=== PATIENT | female | born 1990 | race Caucasian/White ===

== ENCOUNTER → 2018-01-17 11:44 | Outpatient (CLI) | payer MEDICAID, SELFPAY ==
[2018-01-17 15:57] LABS: Absolute Lymphocyte Count 1.64 X10^3/ul (0.83-4.51); Absolute Neutrophil Count 4.3 X10^3/uL (2.0-7.7); Basophil# 0.03 X10^3/uL; Basophil% 0.5 % (0-1); Eosinophil# 0.13 X10^3/uL; Hematocrit 41.3 % (37-47); Lymphocyte # 1.64 X10^3/ul (4.0); Lymphocyte % 24.7 % (19-41); Mean Corp Hgb Conc 33.9 g/gl (32-36); Mean Corpuscular Hgb 30.8 pg (27.0-32.0); Mean Platelet Vol. 9.2 fl (6.2-12.0); Monocyte# 0.55 X10^3/uL; Monocyte% 8.3 % (0-10); Neutrophil # 4.29 X10^3/uL (2.7-7.7); Neutrophil % 64.3 % (47-70); Platelet Count 254 K/mm3 (150-450); RBC Distribution Width CV 12.1 % (11.6-14.6); RBC Distribution Width SD 40.2 fl (35.1-43.9); Red Blood Count 4.54 M/mm3 (4.2-5.4); White Blood Count 6.7 K/mm3 (4.4-11.0)
[2018-01-17 16:04] LABS: Hemoglobin A1c 4.9 % (4.2-6.3)
[2018-01-17 16:12] LABS: POSITIVE COUNT NO; POSITIVE DIFFERENTIAL NO; POSITIVE MORPHOLOGY NO
[2018-01-17 16:14] LABS: Homocysteine 6.4 umol/L (3.2-10.7)
[2018-01-17 16:28] LABS: hCG Titer Quant., Serum < 1 mIU/mL (<9 non-preg)
[2018-01-17 16:40] LABS: ALB/GLOB Ratio 1.2 RATIO (0.9-2.4); AST(SGOT) 10 U/L (15-37); Alanine Aminotransfer ALT/SGPT 23 U/L (13-56); Alkaline Phosphatase 50 U/L (45-117); Anion Gap 6 (5-15); BUN 13 mg/dL (7-18); BUN/Creat Ratio 18.1 RATIO (10-20); Calcium,Total 8.5 mg/dL (8.5-10.1); Chloride 106 mmol/L (98-107); Creatinine, Serum 0.72 mg/dL (0.55-1.02); EST Glomerular Filtration Rate 101 mL/min (>60); Est Glom Filt Rate - Afr Amer 122 mL/min (>60); Ferritin 40 ng/mL (8-252); Globulin 3.4 g/dL (2.2-4.2); Glucose 86 mg/dL (74-106); Protein, Total 7.4 g/dL (6.4-8.2); Sodium Level 138 mmol/L (136-145); Thyroid Stim Hormone (TSH) 0.97 uIU/mL (0.358-3.74)
[2018-01-17 16:46] LABS: Vitamin B12 363 pg/mL (211-911)
[2018-01-24 11:24] LABS: DHEA Sulfate 118.3 ug/dL (84.8-378.0)
== END ==
PROVIDERS: Family Provider Family Medicine; PCP Family Medicine; Visit Provider Family Medicine
DX: R63.5 Abnormal weight gain (principal); Z15.89 Genetic susceptibility to other disease; N92.6 Irregular menstruation, unspecified
CPT/HCPCS: 36415; 80053; 81291; 82607; 82627; 82728; 82746; 83036; 83090; 84443; 84702; 85025; 82626

== ENCOUNTER → 2020-05-04 | Outpatient (CLI) | payer MEDICAID, SELFPAY ==
[2020-05-04 15:44] LABS: Absolute Lymphocyte Count 1.68 X10^3/uL (0.83-4.51); Absolute Neutrophil Count 7.5 X10^3/uL (2.0-7.7); Basophil# 0.05 X10^3/uL; Basophil% 0.5 % (0-1); Eosinophil# 0.06 X10^3/uL; Eosinophils% 0.6 % (0-5); Hematocrit 36.4 % (37-47); Hemoglobin 12.5 g/dL (12.0-15.0); Lymphocyte # 1.68 X10^3/ul (4.0); Mean Corp Hgb Conc 34.3 g/dL (32-36); Mean Corpuscular Hgb 31.5 pg (27.0-32.0); Mean Corpuscular Volume 91.7 fL (81-99); Mean Platelet Vol. 9.7 fl (6.2-12.0); Monocyte# 0.51 X10^3/uL; Monocyte% 5.2 % (0-10); NRBC Flagged by Analyzer 0 % (0-5); Neutrophil # 7.53 X10^3/uL (2.7-7.7); Neutrophil % 76.3 % (47-70); Platelet Count 330 K/mm3 (150-450); RBC Distribution Width CV 12.8 % (11.6-14.6); RBC Distribution Width SD 41.9 fl (35.1-43.9); Red Blood Count 3.97 M/mm3 (4.2-5.4); White Blood Count 9.9 K/mm3 (4.4-11.0)
[2020-05-04 16:10] LABS: Color, Urine Yellow (Yellow); Glucose, Dipstick Normal (Normal); Ketone-Dipstick 50 mg/dl (Negative); Leukocyte Esterase-Dipstick Negative /ul (Negative); Nitrite-Dipstick Negative (Negative); Occult Blood-Urine Negative /ul (Negative); Protein-Dipstick Negative (Negative); Urine Bilirubin Dipstick Negative (Negative); Urine Clarity Clear (Clear); Urine Urobilinogen Normal (Normal)
[2020-05-04 16:57] LABS: Amphetamine Urine VISTA POSITIVE (<1000 ng/mL); Barbiturate Urine VISTA NEGATIVE (< 200 ng/mL); Benzodiazepine Urine VISTA NEGATIVE (< 200 ng/mL); Cocaine Urine VISTA NEGATIVE (< 300 ng/mL); Ecstacy Urine VISTA NEGATIVE (< 500 ng/mL); Methadone Urine VISTA NEGATIVE (< 300 ng/mL); PCP Urine VISTA NEGATIVE (< 25 ng/mL); THC Urine VISTA NEGATIVE (< 50 ng/mL); Vista UDS pH Range 5
[2020-05-05 01:57] LABS: Prenatal RPR NONREACTIVE (NONREACTIVE)
[2020-05-05 10:38] LABS: HIV - WCH Non-Reactive (Nonreactive); Hepatitis B Surface Antigen Non-Reactive (Nonreactive); Hepatitis C Antibody Non-Reactive (Nonreactive); Rubella IgG 38.1 IU/mL
== END | disposition home or self-care (01) ==
PROVIDERS: PCP Family Medicine; Visit Provider Obstetrics & Gynecology
DX: Z34.82 Encounter for supervision of other normal pregnancy, second trimester (principal); Z12.4 Encounter for screening for malignant neoplasm of cervix; Z11.3 Encounter for screening for infections with a predominantly sexual mode of transmission
CPT/HCPCS: 80307; 81002; 84443; 85025; 86703; 86762; 86803; 87340

== ENCOUNTER → 2020-05-13 16:16 | Outpatient (CLI) | payer MEDICAID, SELFPAY | PROVIDERS: PCP Family Medicine; Visit Provider Obstetrics & Gynecology | DX: N75.0 Cyst of Bartholin's gland (principal) | CPT/HCPCS: 87070; 87205 ==

== ENCOUNTER → 2020-06-22 10:24 | Outpatient (CLI) | payer MEDICAID, SELFPAY ==
[2020-06-22 12:05] LABS: ALB/GLOB Ratio 0.8 RATIO (0.9-2.4); AST(SGOT) 12 U/L (15-37); Alanine Aminotransfer ALT/SGPT 17 U/L (13-56); Albumin, Serum 2.8 g/dL (3.2-5.0); Alkaline Phosphatase 44 U/L (45-117); Anion Gap 3 (5-15); BUN 8 mg/dL (7-18); Calcium,Total 8.2 mg/dL (8.5-10.1); Chloride 108 mmol/L (98-107); Creatinine, Serum 0.53 mg/dL (0.55-1.02); EST Glomerular Filtration Rate 141 mL/min (>60); Est Glom Filt Rate - Afr Amer 170 mL/min (>60); Globulin 3.6 g/dL (2.2-4.2); Glucose 87 mg/dL (74-106); Potassium 3.7 mmol/L (3.5-5.1); Protein, Total 6.4 g/dL (6.4-8.2); Sodium Level 137 mmol/L (136-145); Uric Acid 2.8 mg/dL (2.6-6.0)
[2020-06-22 12:06] LABS: Vitamin D,25 Hydroxy 27.8 ng/mL
== END ==
PROVIDERS: PCP Family Medicine; Visit Provider Obstetrics & Gynecology
DX: O13.9 Gestational [pregnancy-induced] hypertension without significant proteinuria, unspecified trimester (principal); Z3A.00 Weeks of gestation of pregnancy not specified
CPT/HCPCS: 36415; 80053; 82306; 84550

== ENCOUNTER → 2020-06-23 13:08 | Outpatient (CLI) | payer MEDICAID, SELFPAY ==
[2020-06-23 13:36] LABS: 24HR. UA Prot. Total Volume 4975 mL
[2020-06-23 13:51] LABS: Urine Protein (24 Hour) < 6.0 mg/dL (<11.9)
== END ==
PROVIDERS: PCP Family Medicine; Visit Provider Obstetrics & Gynecology
DX: O13.9 Gestational [pregnancy-induced] hypertension without significant proteinuria, unspecified trimester (principal); Z3A.00 Weeks of gestation of pregnancy not specified
CPT/HCPCS: 81050

== ENCOUNTER → 2020-07-22 09:29 | Outpatient (CLI) | payer MEDICAID, SELFPAY ==
[2020-07-22 12:12] LABS: Hematocrit 34.3 % (37-47); Hemoglobin 11.4 g/dL (12.0-15.0); Mean Corp Hgb Conc 33.2 g/dL (32-36); Mean Corpuscular Hgb 30.7 pg (27.0-32.0); Mean Corpuscular Volume 92.5 fL (81-99); Mean Platelet Vol. 9.6 fl (6.2-12.0); Platelet Count 329 K/mm3 (150-450); RBC Distribution Width CV 11.9 % (11.6-14.6); Red Blood Count 3.71 M/mm3 (4.2-5.4); White Blood Count 10.2 K/mm3 (4.4-11.0)
[2020-07-22 12:42] LABS: Glucose Challenge Gest 1H 50g 148 mg/dL (70-140)
== END ==
PROVIDERS: PCP Family Medicine; Visit Provider Obstetrics & Gynecology
DX: Z34.82 Encounter for supervision of other normal pregnancy, second trimester (principal)
CPT/HCPCS: 36415; 82950; 85027

== ENCOUNTER → 2020-07-27 07:06 | Outpatient (CLI) | payer MEDICAID, SELFPAY ==
[2020-07-27 07:49] LABS: Glucose GTT-Gestation. Fasting 97 mg/dL (<105)
[2020-07-27 09:05] LABS: Glucose GTT-Gestational 1 Hr 136 mg/dL (<190)
[2020-07-27 09:58] LABS: Glucose GTT-Gestational 2 Hr 105 mg/dL (<165)
[2020-07-27 11:19] LABS: Glucose GTT-Gestational 3 Hr 71 L (<145)
== END ==
PROVIDERS: PCP Family Medicine; Referring Provider Obstetrics & Gynecology; Visit Provider Obstetrics & Gynecology
DX: O99.810 Abnormal glucose complicating pregnancy (principal); Z3A.00 Weeks of gestation of pregnancy not specified
CPT/HCPCS: 36415; 82951; 82952

== ENCOUNTER → 2020-08-16 11:30 | Outpatient (CLI) | payer MEDICAID, SELFPAY ==
[2020-08-16 12:18] LABS: Hematocrit 30.8 % (37-47); Hemoglobin 10.1 g/dL (12.0-15.0); Mean Corp Hgb Conc 32.8 g/dL (32-36); Mean Corpuscular Hgb 29.6 pg (27.0-32.0); Mean Corpuscular Volume 90.3 fL (81-99); Mean Platelet Vol. 8.8 fl (6.2-12.0); Platelet Count 258 K/mm3 (150-450); RBC Distribution Width CV 11.9 % (11.6-14.6); RBC Distribution Width SD 39.6 fl (35.1-43.9); Red Blood Count 3.41 M/mm3 (4.2-5.4); White Blood Count 10.6 K/mm3 (4.4-11.0)
[2020-08-16 12:49] LABS: ALB/GLOB Ratio 0.7 RATIO (0.9-2.4); AST(SGOT) 11 U/L (15-37); Alanine Aminotransfer ALT/SGPT 15 U/L (13-56); Albumin, Serum 2.6 g/dL (3.2-5.0); Alkaline Phosphatase 57 U/L (45-117); Anion Gap 8 (5-15); BUN 12 mg/dL (7-18); BUN/Creat Ratio 23.2 RATIO (10-20); Calcium,Total 8.4 mg/dL (8.5-10.1); Chloride 108 mmol/L (98-107); Creatinine, Serum 0.52 mg/dL (0.55-1.02); EST Glomerular Filtration Rate 146 mL/min (>60); Est Glom Filt Rate - Afr Amer 176 mL/min (>60); Ferritin 4 ng/mL (8-252); Globulin 3.8 g/dL (2.2-4.2); Glucose 89 mg/dL (74-106); Iron 28 ug/dL (50-170); Iron Binding Capacity,Total 574 ug/dL (250-450); Potassium 3.9 mmol/L (3.5-5.1); Protein, Total 6.4 g/dL (6.4-8.2); Sodium Level 138 mmol/L (136-145); Uric Acid 3.1 mg/dL (2.6-6.0)
== END ==
PROVIDERS: PCP Family Medicine; Visit Provider Obstetrics & Gynecology
DX: O10.013 Pre-existing essential hypertension complicating pregnancy, third trimester (principal); O99.019 Anemia complicating pregnancy, unspecified trimester; D64.9 Anemia, unspecified; O99.340 Other mental disorders complicating pregnancy, unspecified trimester; F50.89 Other specified eating disorder; Z3A.00 Weeks of gestation of pregnancy not specified
CPT/HCPCS: 36415; 80053; 82728; 83540; 83550; 84550; 85027

== ENCOUNTER → 2020-08-18 09:49 | Outpatient (CLI) | payer MEDICAID, SELFPAY ==
[2020-08-18 10:30] LABS: 24HR. UA Prot. Total Volume 5875 mL; Urine Protein (24 Hour) < 6.0 mg/dL (<11.9)
== END ==
PROVIDERS: PCP Family Medicine; Visit Provider Obstetrics & Gynecology
DX: O10.013 Pre-existing essential hypertension complicating pregnancy, third trimester (principal); F50.89 Other specified eating disorder; Z3A.00 Weeks of gestation of pregnancy not specified; O99.013 Anemia complicating pregnancy, third trimester; D64.9 Anemia, unspecified
CPT/HCPCS: 81050

== ENCOUNTER 2020-09-10 11:55 | Outpatient (CLI) | payer MEDICAID, SELFPAY ==
[2020-09-10 13:53] VITALS: BP 120/73; PULSE 102
[2020-09-10 15:47] VITALS: BP 110/59; PULSE 93; TEMP 36.6; O2SAT 98
--- NOTE | 2020-09-11 08:16 | PCM.PN.BLA ---
Progress Note Triage Note: CC: Fall HPI: 30 yo presenting s/p fall on buttock and tailbone. No abdominal trauma. +FM, no leaking of fluid, bleeding, contractions. Tailbone sore. complicated by: ADHD, chronic hypertension on nifedipine. OBHX: G1: EAB, forced per records G2: current Medical Hx: cHTN, ADHD Surgical Hx: none Social Hx: former smoker, denies alcohol or drugs Allergies: PCN Medications: ASA 81 mg, colace, iron, nifedipine, PNV, vitamin D3, vyvanse PE; Vital Signs - 24 hr 09/10/20 12:11 09/10/20 12:12 09/10/20 13:53 Temperature 98.9 F Pulse Rate 106 H 125 H 102 H Blood Pressure 128/91 H 125/87 H 120/73 Pulse Ox 98 09/10/20 15:47 Temperature 97.9 F Pulse Rate 93 Blood Pressure 110/59 L Pulse Ox 98 Exam per nursing FHR: 140/mod jeni/+accel/no decel [place]: quiet A/P: 30 yo at 34/5 weeks presenting s/p fall. Pt had four hours of monitoring. Not samuel. NST reactive. Home with precautions. F/u routine visit.
== END 2020-09-10 14:00 | disposition home or self-care (01) ==
DX: Z04.3 Encounter for examination and observation following other accident (principal); O10.919 Unspecified pre-existing hypertension complicating pregnancy, unspecified trimester; O99.340 Other mental disorders complicating pregnancy, unspecified trimester; F90.9 Attention-deficit hyperactivity disorder, unspecified type; Z3A.00 Weeks of gestation of pregnancy not specified; Z79.82 Long term (current) use of aspirin; Z87.891 Personal history of nicotine dependence
CPT/HCPCS: 59050; 99218; G0378

== ENCOUNTER → 2020-09-20 15:42 | Outpatient (CLI) | payer MEDICAID, SELFPAY ==
[2020-09-10 12:15] VITALS: BMI 33.5
[2020-09-20 17:33] LABS: Hematocrit 40.5 % (37-47); Hemoglobin 13.2 g/dL (12.0-15.0); Mean Corp Hgb Conc 32.6 g/dL (32-36); Mean Corpuscular Hgb 30.8 pg (27.0-32.0); Mean Corpuscular Volume 94.6 fL (81-99); Mean Platelet Vol. 9.5 fl (6.2-12.0); Platelet Count 247 K/mm3 (150-450); RBC Distribution Width CV 17.3 % (11.6-14.6); RBC Distribution Width SD 59.5 fl (35.1-43.9); Red Blood Count 4.28 M/mm3 (4.2-5.4); White Blood Count 13.3 K/mm3 (4.4-11.0)
[2020-09-20 18:08] LABS: Ferritin 15 ng/mL (8-252)
== END ==
PROVIDERS: PCP Family Medicine; Visit Provider Obstetrics & Gynecology
DX: Z34.83 Encounter for supervision of other normal pregnancy, third trimester (principal); Z36.85 Encounter for antenatal screening for Streptococcus B; D50.9 Iron deficiency anemia, unspecified
CPT/HCPCS: 36415; 82728; 85027; 87081

== ENCOUNTER → 2020-10-06 09:30 | Outpatient (CLI) | payer MEDICAID, SELFPAY ==
[2020-09-10 12:15] VITALS: BMI 33.5
== END ==
PROVIDERS: PCP Family Medicine; Referring Provider Obstetrics & Gynecology; Visit Provider Obstetrics & Gynecology
DX: Z11.59 Encounter for screening for other viral diseases (principal)
CPT/HCPCS: 87635; C9803; U0003

== ENCOUNTER 2020-10-13 19:23 | Inpatient (IN) | payer MEDICAID, SELFPAY ==
[2020-09-10 12:15] VITALS: BMI 33.5
[2020-10-13 19:53] VITALS: BP 135/92; PULSE 111; PULSE 117; TEMP 36.7; O2SAT 98
[2020-10-13] MEDS: Lactated Ringers 1,000 ML 50 ML IV (20:17)
[2020-10-13 20:24] VITALS: BMI 35.2
[2020-10-13 20:48] LABS: Absolute Lymphocyte Count 1.61 X10^3/uL (0.83-4.51); Absolute Neutrophil Count 11.5 X10^3/uL (2.0-7.7); Basophil# 0.04 X10^3/uL; Basophil% 0.3 % (0-1); Eosinophil# 0.08 X10^3/uL; Eosinophils% 0.6 % (0-5); Hematocrit 40.8 % (37-47); Hemoglobin 13.2 g/dL (12.0-15.0); Lymphocyte # 1.61 X10^3/ul (4.0); Lymphocyte % 11.2 % (19-41); Mean Corp Hgb Conc 32.4 g/dL (32-36); Mean Corpuscular Hgb 30.8 pg (27.0-32.0); Mean Corpuscular Volume 95.1 fL (81-99); Mean Platelet Vol. 9.4 fl (6.2-12.0); Monocyte# 1.04 X10^3/uL; Monocyte% 7.2 % (0-10); NRBC Flagged by Analyzer 0 % (0-5); Neutrophil # 11.51 X10^3/uL (2.7-7.7); Platelet Count 249 K/mm3 (150-450); RBC Distribution Width CV 16.8 % (11.6-14.6); RBC Distribution Width SD 58.9 fl (35.1-43.9); Red Blood Count 4.29 M/mm3 (4.2-5.4); White Blood Count 14.4 K/mm3 (4.4-11.0)
--- NOTE | 2020-10-13 21:20 | PCM.HPOB.BLA ---
History and Physical Date of Admission: 10/13/20 Chief complaint: Induction of labor at term History of present illness: 30 years old G3, P0 at 39 weeks and 3 days with JANNETH: 10/17/2020 by LMP arrives for induction of labor at term. Denies headache, visual changes, chest pain, shortness of breath, nausea vomiting, right upper quadrant pain. Patient states good movement Nifedipine, Bartholin's glands status post drainage this Obstetric history G1: SAB 2011 G2: SAB 2013 G3: Current Past medical history: Chronic hypertension, herniated disks, history of Lyme disease, depression/ADHD Past surgical history: None Medications: Nifedipine, Vyvanse, aspirin Allergies: Penicillin (rash) Social history: Former smoker. Denies a history of alcohol use, drug use Review of systems: Besides the above pertinent positives a full review of systems was performed and found to be negative Physical exam: Vital Signs Pulse BP Pulse Ox 10/13/20 19:53 117 H 135/92 H 98 General: Normal-appearing no acute distress skin HEENT: Normocephalic atraumatic no cervical adenopathy Cardiac: Regular rate and rhythm no murmurs rubs or gallops Respiratory: Clear to auscultation bilaterally no wheezes rales or crackles Abdomen: Soft nontender, gravid. Positive bowel sounds Pelvic: Cervical exam- closed thick and high heart tones: 120/moderate variability/positive accelerations/negative decelerations [place]: Few contractions Extremities: No peripheral edema normal peripheral pulses Psych: Normal affect normal demeanor nonpressured speech Mom's Labs & Results 10/13/20 10/13/20 20:10 20:10 WBC 14.4 H RBC 4.29 Hgb 13.2 Hct 40.8 MCV 95.1 MCH 30.8 MCHC 32.4 RDW Std Deviation 58.9 H RDW Coeff of Ralf 16.8 H Plt Count 249 MPV 9.4 Immature Gran % (Auto) 0.700 Neut % (Auto) 80.0 H Lymph % (Auto) 11.2 L [place] % (Auto) 7.2 Eos % (Auto) 0.6 Baso % (Auto) 0.3 Absolute Neuts (auto) 11.5 H Absolute Lymphs (auto) 1.61 Nucleated RBC % 0 Blood Type Pending Antibody Screen Pending Labs Blood Type: A RH: POSITIVE RPR/VDRL/Syphilis Nonreactive Rubella status Immune HbSAg Negative Date Done: 05/04/20 Chlamydia Negative Gonorrhea Negative HIV/AIDS Non-Reactive Group B Strep: Negative Assessment and plan: Is a 30-year-old G3, P0 at 39 weeks and 3 days for induction of labor at term. -Admit labor and delivery -CEFM -GBS negative -Cytotec induction -Anesthesia to see
[2020-10-13] MEDS: miSOPROStol 25 MCG TABLET VAGINAL (21:37)
[2020-10-13 21:53] VITALS: BP 134/84; PULSE 97; TEMP 36.6
[2020-10-13] MEDS: DiphenhydrAMINE 25 MG Capsule 75 MG PO (22:21)
[2020-10-13] MEDS: NIFEdipine 30 MG Tablet PO (22:22)
[2020-10-14] VITALS (27 sets, daily range): BP systolic 92–151; BP diastolic 55–96; PULSE 78–163; RESP 16; TEMP 36.2–37.2; O2SAT 82–100
[2020-10-14] MEDS: miSOPROStol 50 MCG TABLET VAGINAL ×2 (02:21→08:07)
--- NOTE | 2020-10-14 08:57 | PCM.PN.BLA ---
Progress Note LABOR PROGRESS NOTE Denies headache, vision changes, abdominal pain. Reports mild contractions in her back. No complaints. AVSS Vital Signs Temp 98.9 F 10/14/20 07:23 Pulse 90 10/14/20 07:23 BP 122/77 H 10/14/20 07:23 Pulse Ox 100 10/14/20 07:23 Intake & Output 10/12/20 10/13/20 10/14/20 23:59 23:59 23:59 Output Total 100 / 100 Balance -100 / -100 Weight: 98.883 kg Output: Urine 100 / 100 GEN - NAD, AAO x 3 FHR 140, moderate variability, + accelerations, no decelerations TOCO 3-4/10 min SVE 1/50/-2 per RN exam A/P: 30yo G1 @ 39+ wga, IOL, cHTN, Cat I FHR -Continue cytotec -Plan for stuart bulb if unchanged at next check STROKE Vital Signs/Narrative: Vital Signs Temp Pulse BP Pulse Ox 10/14/20 07:23 98.9 F 90 122/77 H 100
[2020-10-14] MEDS: NIFEdipine 30 MG Tablet PO ×2 (09:55→22:22)
--- NOTE | 2020-10-14 12:58 | PN_ITS ---
Progress Note LABOR PROGRESS NOTE Doing well, no complaints. AVSS GEN - NAD, AAO x 3 FHR 135/7, moverate variability, + accelerations, no decelerations TOCO 4/10 min SVE 1/75/-2, moderate and midposition A/P: 30yo G1 @ 39 4/7 wga with hx cHTN, IOL, Cat I FHR -Rodriguez bulb placed -If no significant contractions will start pitocin in 1-2 hours -Maternal and statuses reassuring -Discussed r/b Vyvanse , effects associated with . May consider , L3, with relative infant dose 1.8- 6.2%. Pt considering. STROKE Vital Signs/Narrative: Vital Signs Temp Pulse BP Pulse Ox 10/14/20 11:37 98.5 F 82 111/70 99 10/14/20 09:53 94 136/92 H 10/14/20 09:52 98.7 F 100
[2020-10-14] MEDS: 0.9% Normal Saline Single 100 ML IV.SOLN. IY (13:09)
[2020-10-14] MEDS: Lactated Ringers 1,000 ML 200 ML IV (16:20)
[2020-10-14] MEDS: fentaNYL 100 MCG/2 ML Ampul IV (18:12)
[2020-10-14] MEDS: Oxytocin 30 units/NS 500 ml 30 UNITS/500 ML IV.SOLN 334 UNITS IV (18:32)
--- NOTE | 2020-10-14 18:47 | PCM.OPRPT ---
Problem List (1) 39 weeks gestation of Status: Acute (2) (spontaneous vaginal delivery) Status: Acute Vaginal Delivery Maternal Presentation: Medically Indicated Induction Method of Induction: Rodriguez Bulb, Cytotec Amniotic Membrane Rupture Type: Spontaneous Rupture of Membrane time: 10/14/20 1817h Amniotic Fluid Description: Clear Final JANNETH: 10/17/20 Final JANNETH Source: US <20 weeks Gestational age: 39 Weeks and 4 Days Date of Procedure: 10/14/20 Pre-Operative Diagnosis: 39 4/7wga, chronic hypertension Post-Operative Diagnosis: 39 4/7wga, chronic hypertension Surgery/ Procedure Performed: Spontaneous Vaginal Delivery Type of Anesthesia: None Description of Procedure: Patient was FD/+4 on my arrival, Cat I FHR. She pushed over an intact perineum to deliver infant head. Mouth and nares bulb suctioned at the perineum and nuchal cord x 1 reduced. shoulders delivered with ease to reveal a vigorous male infant. Infant was placed on the maternal abdomen and was further attended by nursery personnel. Cord was doubly clamped and cut at 5 minutes of life. Perineum intact Sponge counts correct x 2. Presentation: Vertex Placental Delivery Description: Spontaneous Placenta Disposition: [facility] Cord Vessel Description: 3 Vessels Nuchal Cord Compression: Without compression Cord Entanglement: Around neck x 1, loose Estimated Blood Loss: 350 ml A gender: Male (1 minute): 8 (5 minute): 9 Episiotomy Description: None Laceration: None Medications given after delivery: IV Pitocin
--- NOTE | 2020-10-14 20:36 | NURSING ---
report given to aorr RN. that rn to assume care of pt at this time.
[2020-10-14] MEDS: 0.9% Saline Lock 10 ML Syringe IV (21:10)
[2020-10-15 03:27] VITALS: BP 137/80; PULSE 89; RESP 16; TEMP 36.7
[2020-10-15 08:47] VITALS: BP 133/95; PULSE 83; RESP 14; TEMP 36.4
[2020-10-15] MEDS: NIFEdipine 30 MG Tablet PO ×2 (08:53→22:33)
--- NOTE | 2020-10-15 09:20 | PCM.PN.OB ---
Patient Problems: Active and Suspected Problems 39 weeks gestation of (Acute) (spontaneous vaginal delivery) (Acute) Subjective: Feels well this morning. She is out of bed, voiding without difficulty. Denies heavy lochia. latched well and she is breast and bottle feeding. Objective: AVSS - Physical Exam Vitals/I&O's: Vital Signs Temp Pulse Resp BP Pulse Ox 97.6 F L 83 14 133/95 H 98 10/15/20 08:47 10/15/20 08:47 10/15/20 08:47 10/15/20 08:47 10/14/20 20:27 Oxygen Delivery Method Room Air Weight: 98.883 kg Body Mass Index (BMI) 35.2 Intake and Output for Last 24 Hours 10/13/20 10/14/20 10/15/20 23:59 23:59 23:59 Intake Total 1608.33 / 1608.33 Output Total 450 / 450 400 / 400 Balance 1158.33 / 1158.33 -400 / -400 General: Alert, Oriented x3, Cooperative, No apparent distress HEENT: Atraumatic, Normocephalic Lungs: Clear to auscultation, Normal air movement Cardiovascular: Regular rate, Regular Rhythm, Normal S1, Normal S2 Abdomen: Soft, Non Tender, Non-Distended, - - Fundus firm and nontender Extremities: No edema, No Calf Tenderness Neurological: Neuro grossly intact Psych/Mental Status: Normal Affect, Appropriate, Alert and oriented to time, place, person, mood and affect Current Medications Acetaminophen (Acetaminophen 500 Mg Tablet) 500 - 1,000 mg PO Q6H PRN PRN PRN Reason: Pain Score 1-3 Bisacodyl (Bisacodyl 10 Mg Suppository) 10 mg RECTAL UD PRN PRN Reason: If no BM Hydrocortisone (Hydrocortisone 2.5% Crm) 1 applic TOPICAL TID PRN PRN; Protocol PRN Reason: Discomfort Ibuprofen (Ibuprofen 600 Mg Tablet) 600 mg PO Q6H PRN PRN PRN Reason: Pain Score 1-3 Lisdexamfetamine Dimesylate (Lisdexamfetamine Dimesylate 60 Mg Capsule) 60 mg PO DAILY SHAUN Last Admin: 10/15/20 08:53 Dose: 60 mg Documented by: Methylergonovine Maleate (Methylergonovine 0.2 Mg/Ml Ampul) 0.2 mg IM X1 PRN PRN Reason: Excess bleeding/uterine atony Nifedipine (Nifedipine 30 Mg Tablet) 30 mg PO BID SHAUN Last Admin: 10/15/20 08:53 Dose: 30 mg Documented by: Ondansetron HCl (Ondansetron 4 Mg/2 Ml Vial) 4 mg IV Q4H PRN PRN PRN Reason: NAUSEA Senna/Docusate Sodium (Senna/Docusate Sodium 1 Tablet) 1 - 2 tablet PO DAILY PRN PRN PRN Reason: Constipation Simethicone (Simethicone 80 Mg Tablet) 80 mg PO PCHS PRN PRN Reason: Indigestion/Stomach pain Sodium Chloride (0.9% Saline Lock 10 Ml Syringe) 5 - 15 ml IV UD PRN PRN Reason: SALINE FLUSH Last Admin: 10/14/20 21:10 Dose: 5 ml Documented by: Medical Necessity - Tobacco Use Smoking Status: Former smoker Assessment/Plan All Active Problems 39 weeks gestation of (Acute) (spontaneous vaginal delivery) (Acute) 30yo P1001 PPD#1 s/p doing well. -Rh positive -Social work consultation -Breast and bottle feeding. education. -Routine care.
[2020-10-15 16:33] VITALS: BP 141/92; PULSE 90; RESP 14; TEMP 36.2
--- NOTE | 2020-10-15 18:45 | CASEMGMT ---
Social Work Assessment Labor and Delivery Unit Date of Referral: 10/14/2020 Time of Referral: 23:07 Referred By: Dr. Cherise Blanchard Date of Intervention: 10/15/2020 Time of Intervention: 18:45 Reason for Referral: Mother of baby (MOB) with history of trauma, anxiety, Father of baby (FOB) recently diagnosed with a brain mass. History obtained from: MOB, FOB, Chart, Nursing staff. Household composition: MOB, FOB and now this infant, Lucas Boucher. Patient's parent/guardian status: MOB and FOB have been for 5 years. was planned. FOB reports ?years? of infertility and ?we thought we could not get .? This is first child for both MOB and FOB. Medical History: MOB with prior to this infant. MOB with vaginal delivery at 39 weeks. MOB with history of Anxiety, Depression, PTSD. Infant born on 10/14/2020 with apgars of 8 and 9 at 1min and 5min. Infant weight of 3475g. to follow with Dr. Jimenez Hutchison for animal warden. MOB plans a combination of and bottle feeding. Educational Status: Denies any issues with comprehension or understanding. Financial Status: FOB is self-employed. MOB reports current financial stability but unsure when FOB has surgery in 2020. MOB aware of WIC, Medicaid and has utilized food stamps in the past. Supplies: FOB reports to have needed supplies including car seat and crib etc. Childcare/Caregiver(s): MOB to be primary caregiver for infant. FOB is currently in a ?slow period? and will be around for support of MOB and . Transportation: Denies concerns. Programs/Agencies Involved: [employer] [facility] for medical. Children Services/Legal Issues: Denies issues or concerns. Mental Health History: MOB with history of Anxiety, Depression, ADHD and PTSD. MOB reports history of counseling but not active counseling services. MOB reports only medication that MOB is currently on for mental health is Vyvanse and ?it works well.? This social studies department chair able to engage in conversation with MOB about depression signs and symptoms. MOB responding appropriately and able to identify positive coping skills. Substance Use History: Denies history or current substance abuse for MOB. FOB currently chews tobacco and denies any other substance abuse/abuse. Maternal and Drug Screens: MOB with positive tox screen for amphetamines on 05/04/2020, per medical team report Vyvanse can trigger a false positive. No further tox screens were completed on MOB or infant. PHQ9: MOB triggered PHQ-9. MOB with 14/27 on PHQ-9 with exhibits moderate depression. MOB with appropriate and engaged affect during conversation with this social studies department chair. MOB reports to have a connection with . MOB reports to believe that MOB would have the same score on the PHQ-9 for the past 3-4 years. MOB reports ?I have a lot of stress in life.? MOB denies any history of suicidal thoughts or current thoughts/plans/intents of suicide. MOB is forward focused and goal oriented. MOB reports main current stressor in MOB?s life is FOB having ?brain surgery? in 2020. MOB reports to have found out about FOBs diagnosis 2 weeks ago. MOB and FOB both report stress in relationship to COVID-19 and not wanting family to come and visit . MOB and FOB with dilemma of best choice for caring for infant when FOB has surgery in November. Currently the plan is for FOB to go to hospital on own and MOB to only join FOB if there are complications. MOB and FOB report to have not informed either of their extended family about FOB?s diagnosis as ?we know they will be overly concerned.? This social studies department chair problem solving with MOB/FOB on plans for if MOB would need to go to hospital to be with FOB. MOB and FOB voice plan to inform family ?when it gets closer.? MOB also reports to have history of ?trauma? and ?things that happened to me.? MOB presents as able to critically think and problem solve. MOB with appropriate emotional regulation throughout conversation and reports to have a connection with . MOB open to receive counseling information but not open to beginning counseling with concern of COVID-19. MOB did voice intent to speak with physician if MOB would begin to have signs/symptoms of depression or be having difficulty coping with FOB?s diagnosis. This social studies department chair able to normalize MOB/FOB?s current emotions and able to identify strengths that both MOB and FOB presented during assessment. Family/Social Stressors: MOB reports current stressor of wanting to limit extended family contact due to COVID-19. MOB reports to have not told extended family about until MOB was 30-32 weeks . FOB?s new diagnosis of brain tumor is also a current stressor and discussed further above. MOB reports to have not told family that infant has been born as ?we don?t want them meeting us in the driveway.? This social studies department chair able to facilitate pros and cons of involving extended family in navigating current stressors. MOB and FOB present to be able to communicate to each other and are appropriate when speaking about current stressors. This social studies department chair encouraging MOB/FOB to continue with open conversations about feelings/thoughts as this current season of life is unknown with FOB?s new diagnosis and transitioning to life with an infant. Support Systems: MOB reports main support as FOB. MOB reports to have support from extended family ?if needed.? Depression and Anxiety/Shaken Baby/Safe Sleeping: MOB provided with resources on depression/anxiety, shaken baby, safe sleeping and general [facility] resources. MOB and FOB responding appropriately to prompts for safe sleeping and shaken baby. ASSESSMENT: Met with MOB, FOB and in room. This social studies department chair introduced self and social studies department chair role. MOB agreeable to speak with this social studies department chair and providing verbal permission for this social studies department chair to speak openly with FOB present. MOB holding during assessment. Both MOB and FOB gazing at infant often during assessment. MOB/FOB with appropriate eye contact to this social studies department chair. MOB denies immediate concerns on home going with infant. This social studies department chair facilitated active listening and support throughout assessment. This social studies department chair encouraging both MOB and FOB to reach out to doctors, family, and counseling as needed throughout the next few months. PLAN: to discharge to home with MOB and FOB. Nursing staff updated on above assessment. No other services requested or indicated. Aaron DAMON, ALY
[2020-10-15 19:50] VITALS: BP 131/88; PULSE 79; RESP 16; TEMP 36.6
[2020-10-16 01:10] VITALS: BP 135/94; PULSE 92; RESP 18; TEMP 36.6
--- NOTE | 2020-10-16 04:48 | DCINST_ITS ---
Discharge Diet: No Restrictions Discharge Activity: Return to Normal Activity, May Shower, May Take a Tub Bath May resume sexual activity in: 4-6 weeks Lifting Restrictions: 20-25lb Additional Instructions: If you experience any of the following, contact your healthcare provider. * Bleeding that soaks a pad every hour for 2 hours * Fever 100.4 or higher * Unrelieved incision or abdominal pain * Swelling, redness, discharge or bleeding from your incision or episiotomy site * Your incision begins to separate * Problems urinating (including inability to urinate or burning while urinating). * Visual changes * Severe headache * Flu-like symptoms * Pain or redness in one of both of your breasts * Pain, warmth, tenderness or swelling in your legs, especially the calf area * Frequent nausea and vomiting * Symptoms of depression or anxiety If you experience any of the following, call 911 or go to the nearest Emergency Room. * Chest pain * Problems breathing * Seizure activity * Partial or complete paralysis of a body part, slurred speech, weakness or drooping of the face, or a sudden inability to walk or hold your balance Allergies/Adverse Reactions: Allergies Penicillins Allergy (Verified 10/13/20 19:33) Rash Medications to take at Discharge DiphenhydrAMINE [Benadryl] 75 mg PO QHS PRN PRN 10/13/20 Ergocalciferol [Vitamin D] 10/13/20 Lisdexamfetamine Dimesylate [Vyvanse] 60 mg PO DAILY 10/13/20 Nifedipine [Nifedipine ER] 30 mg PO BID 10/13/20 Ibuprofen [Motrin] 600 mg PO Q8H PRN #30 tab 10/15/20 The following prescriptions were given: Ibuprofen [Motrin] 600 mg PO Q8H PRN #30 tab PRN Reason: pain -09/03 Transmission Status: Received by [id number] Please Follow Up With: Bertha - telehealth visit, mood check When: 1-3 weeks Please Follow Up With: Bertha - visit When: 6-8 weeks Primary Care Physician: Jimenez Hutchison MD [Primary Care Provider] - Test Results: Test results from this visit will be discussed in further detail at your follow- up appointment, if applicable. Proposed Discharge Date: 10/16/20
--- NOTE | 2020-10-16 04:48 | PCM.DCVAG ---
Discharge Diet: No Restrictions Discharge Activity: Return to Normal Activity, May Shower, May Take a Tub Bath May resume sexual activity in: 4-6 weeks Lifting Restrictions: 20-25lb Additional Instructions: If you experience any of the following, contact your healthcare provider. Bleeding that soaks a pad every hour for 2 hours Fever 100.4 or higher Unrelieved incision or abdominal pain Swelling, redness, discharge or bleeding from your incision or episiotomy site Your incision begins to separate Problems urinating (including inability to urinate or burning while urinating). Visual changes Severe headache Flu-like symptoms Pain or redness in one of both of your breasts Pain, warmth, tenderness or swelling in your legs, especially the calf area Frequent nausea and vomiting Symptoms of depression or anxiety If you experience any of the following, call 911 or go to the nearest Emergency Room. Chest pain Problems breathing Seizure activity Partial or complete paralysis of a body part, slurred speech, weakness or drooping of the face, or a sudden inability to walk or hold your balance Allergies/Adverse Reactions: Allergies Penicillins Allergy (Verified 10/13/20 19:33) Rash Medications to take at Discharge DiphenhydrAMINE [Benadryl] 75 mg PO QHS PRN PRN 10/13/20 Ergocalciferol [Vitamin D] 10/13/20 Lisdexamfetamine Dimesylate [Vyvanse] 60 mg PO DAILY 10/13/20 Nifedipine [Nifedipine ER] 30 mg PO BID 10/13/20 Ibuprofen [Motrin] 600 mg PO Q8H PRN #30 tab 10/15/20 The following prescriptions were given: Ibuprofen [Motrin] 600 mg PO Q8H PRN #30 tab PRN Reason: pain -09/03 Transmission Status: Received by [id number] Please Follow Up With: Bertha - telehealth visit, mood check When: 1-3 weeks Please Follow Up With: Bertha - visit When: 6-8 weeks Primary Care Physician: Jimenez Hutchison MD [Primary Care Provider] - Test Results: Test results from this visit will be discussed in further detail at your follow-up appointment, if applicable. Proposed Discharge Date: 10/16/20
--- NOTE | 2020-10-16 07:37 | PCM.PN.OB ---
Patient Problems: Active and Suspected Problems 39 weeks gestation of (Acute) (spontaneous vaginal delivery) (Acute) Subjective: Reports low back pain and feels as if her pelvis is unstable and feels wobbly. hx chronic low back pain. Denies pain running down into her buttocks or thighs. Denies heavy lochia. No other complaints. Objective: AVSS - Physical Exam Vitals/I&O's: Vital Signs Temp Pulse Resp BP Pulse Ox 97.8 F 92 18 135/94 H 98 10/16/20 01:10 10/16/20 01:10 10/16/20 01:10 10/16/20 01:10 10/14/20 20:27 Oxygen Delivery Method Room Air Weight: 98.883 kg Body Mass Index (BMI) 35.2 Intake and Output for Last 24 Hours 10/14/20 10/15/20 10/16/20 23:59 23:59 23:59 Intake Total 1608.33 / 1608.33 Output Total 450 / 450 400 / 400 Balance 1158.33 / 1158.33 -400 / -400 General: Alert, Oriented x3, Cooperative, No apparent distress HEENT: Atraumatic, Normocephalic Lungs: Clear to auscultation, Normal air movement Cardiovascular: Regular rate, Regular Rhythm, Normal S1, Normal S2 Abdomen: Soft, Non Tender, Non-Distended, - - Fundus firm and nontender Extremities: No edema, No Calf Tenderness Neurological: Neuro grossly intact Psych/Mental Status: Normal Affect, Appropriate, Alert and oriented to time, place, person, mood and affect Current Medications Acetaminophen (Acetaminophen 500 Mg Tablet) 500 - 1,000 mg PO Q6H PRN PRN PRN Reason: Pain Score 1-3 Bisacodyl (Bisacodyl 10 Mg Suppository) 10 mg RECTAL UD PRN PRN Reason: If no BM Hydrocortisone (Hydrocortisone 2.5% Crm) 1 applic TOPICAL TID PRN PRN; Protocol PRN Reason: Discomfort Ibuprofen (Ibuprofen 600 Mg Tablet) 600 mg PO Q6H PRN PRN PRN Reason: Pain Score 1-3 Lisdexamfetamine Dimesylate (Lisdexamfetamine Dimesylate 60 Mg Capsule) 60 mg PO DAILY SHAUN Last Admin: 10/16/20 04:38 Dose: 60 mg Documented by: Methylergonovine Maleate (Methylergonovine 0.2 Mg/Ml Ampul) 0.2 mg IM X1 PRN PRN Reason: Excess bleeding/uterine atony Nifedipine (Nifedipine 30 Mg Tablet) 30 mg PO BID SHAUN Last Admin: 10/15/20 22:33 Dose: 30 mg Documented by: Ondansetron HCl (Ondansetron 4 Mg/2 Ml Vial) 4 mg IV Q4H PRN PRN PRN Reason: NAUSEA Senna/Docusate Sodium (Senna/Docusate Sodium 1 Tablet) 1 - 2 tablet PO DAILY PRN PRN PRN Reason: Constipation Simethicone (Simethicone 80 Mg Tablet) 80 mg PO PCHS PRN PRN Reason: Indigestion/Stomach pain Sodium Chloride (0.9% Saline Lock 10 Ml Syringe) 5 - 15 ml IV UD PRN PRN Reason: SALINE FLUSH Last Admin: 10/14/20 21:10 Dose: 5 ml Documented by: Medical Necessity - Tobacco Use Smoking Status: Former smoker Assessment/Plan All Active Problems 39 weeks gestation of (Acute) (spontaneous vaginal delivery) (Acute) 30yo P1001 PPD#2 s/p doing well. -Rh positive -Social work consultation appreciated -Routine care -LBP musculoskeletal on exam with no point tenderness, but pain located to sacroiliac joints. Discussed hip, low back binder for support. -d/c home
[2020-10-16 08:29] VITALS: BP 129/90; PULSE 100; RESP 16; TEMP 36.9
== END 2020-10-16 10:40 | disposition home or self-care (01) | DRG 560 ==
PROVIDERS: Admitting Provider Obstetrics & Gynecology; PCP Family Medicine; Referring Provider Obstetrics & Gynecology; Visit Provider Obstetrics & Gynecology
DX: O10.92 Unspecified pre-existing hypertension complicating childbirth (principal); O26.23 Pregnancy care for patient with recurrent pregnancy loss, third trimester; Z3A.39 39 weeks gestation of pregnancy; Z37.0 Single live birth; O69.81X0 Labor and delivery complicated by cord around neck, without compression, not applicable or unspecified; Z87.891 Personal history of nicotine dependence; Z86.19 Personal history of other infectious and parasitic diseases
CPT/HCPCS: 59025; 59050; 85025; 86850; 86900; 86901; 99218; J7120; A4216; G0378

== ENCOUNTER → 2020-11-28 14:32 | Outpatient (CLI) | payer MEDICAID, SELFPAY ==
[2020-11-28 18:23] LABS: Albumin, Serum 3.7 g/dL (3.2-5.0); BUN 12 mg/dL (7-18); BUN/Creat Ratio 16.6 RATIO (10-20); Calcium,Total 8.8 mg/dL (8.5-10.1); Chloride 107 mmol/L (98-107); Creatinine, Serum 0.72 mg/dL (0.55-1.02); EST Glomerular Filtration Rate 99 mL/min (>60); Est Glom Filt Rate - Afr Amer 120 mL/min (>60); Ferritin 125 ng/mL (8-252); Glucose 83 mg/dL (74-106); Phosphorus 2.8 mg/dL (2.5-4.9); Potassium 3.6 mmol/L (3.5-5.1); Sodium Level 140 mmol/L (136-145); Thyroid Stim Hormone (TSH) 0.79 uIU/mL (0.358-3.74)
== END ==
PROVIDERS: PCP Family Medicine; Visit Provider Family Medicine
DX: E61.1 Iron deficiency (principal); I10 Essential (primary) hypertension; R42 Dizziness and giddiness
CPT/HCPCS: 36415; 80069; 82728; 84443

== ENCOUNTER → 2021-05-17 15:39 | Outpatient (CLI) | payer MEDICAID, SELFPAY ==
[2021-05-17 17:55] LABS: Absolute Lymphocyte Count 1.44 X10^3/uL (0.83-4.51); Absolute Neutrophil Count 5.1 X10^3/uL (2.0-7.7); Basophil# 0.05 X10^3/uL; Basophil% 0.7 % (0-1); Eosinophil# 0.11 X10^3/uL; Eosinophils% 1.5 % (0-5); Hematocrit 42.7 % (37-47); Hemoglobin 14.3 g/dL (12.0-15.0); Lymphocyte # 1.44 X10^3/ul (0.83-4.51); Lymphocyte % 19.7 % (19-41); Mean Corp Hgb Conc 33.5 g/dL (32-36); Mean Corpuscular Hgb 30.6 pg (27.0-32.0); Mean Corpuscular Volume 91.2 fL (81-99); Mean Platelet Vol. 9.5 fl (6.2-12.0); Monocyte# 0.61 X10^3/uL; Monocyte% 8.3 % (0-10); NRBC Flagged by Analyzer 0 % (0-5); Neutrophil % 69.7 % (47-70); Platelet Count 288 K/mm3 (150-450); RBC Distribution Width CV 12.1 % (11.6-14.6); RBC Distribution Width SD 40.2 fl (35.1-43.9); Red Blood Count 4.68 M/mm3 (4.2-5.4); White Blood Count 7.3 K/mm3 (4.4-11.0)
[2021-05-17 18:19] LABS: ALB/GLOB Ratio 1.2 RATIO (0.9-2.4); AST(SGOT) 9 U/L (15-37); Alanine Aminotransfer ALT/SGPT 21 U/L (13-56); Albumin, Serum 3.7 g/dL (3.2-5.0); Alkaline Phosphatase 71 U/L (45-117); Anion Gap 6 (5-15); BUN 14 mg/dL (7-18); BUN/Creat Ratio 16.6 RATIO (10-20); Calcium,Total 8.6 mg/dL (8.5-10.1); Chloride 109 mmol/L (98-107); Creatinine, Serum 0.84 mg/dL (0.55-1.02); EST Glomerular Filtration Rate 83 mL/min (>60); Est Glom Filt Rate - Afr Amer 100 mL/min (>60); Globulin 3.2 g/dL (2.2-4.2); Glucose 109 mg/dL (74-106); Potassium 3.7 mmol/L (3.5-5.1); Protein, Total 6.9 g/dL (6.4-8.2); Sodium Level 142 mmol/L (136-145); Thyroid Stim Hormone (TSH) 0.82 uIU/mL (0.358-3.74)
== END ==
PROVIDERS: PCP Family Medicine; Referring Provider Family Medicine; Visit Provider Family Medicine
DX: R63.5 Abnormal weight gain (principal)
CPT/HCPCS: 36415; 80053; 82627; 84439; 84443; 85025; 82626

== ENCOUNTER 2021-05-27 23:35 | Emergency (ER) | payer MEDICAID, SELFPAY ==
[2021-05-27 23:36] VITALS: BP 151/100; PULSE 99; RESP 20; TEMP 36.3; O2SAT 100; BMI 34.2
[2021-05-27 23:58] VITALS: BP 145/105; PULSE 85; RESP 14; O2SAT 99
--- NOTE | 2021-05-28 00:08 | RAD_ITS ---
STUDY: X-RAY CHEST REASON FOR EXAM: Female, 31 years old. palpitations TECHNIQUE: Single AP portable view of the chest. COMPARISON: None. FINDINGS: The lungs are clear and expanded. There is no demonstrated pleural abnormality. Normal size heart. Normal mediastinum and bridger. Normal visualized pulmonary arteries. Normal visualized aortic arch and descending thoracic aorta. Normal visualized thoracic spine. Normal visualized ribs, clavicles, and shoulders. There is no demonstrated abnormality of the visualized soft tissue structures of the upper abdomen. RAD/Chest 1 View (Portable) IMPRESSION: Normal x-ray examination of the chest. Electronically Signed: Venita Leong MD at 0:37 EDT , Service support ,
--- NOTE | 2021-05-28 00:08 | EKG12_ITS ---
Test Reason : PALPITATIONS Blood Pressure : / mmHG Vent. Rate : 097 BPM Atrial Rate : 097 BPM P-R Int : 154 ms QRS Dur : 090 ms QT Int : 354 ms P-R-T Axes : 028 051 028 degrees QTc Int : 449 ms Normal sinus rhythm Normal ECG Confirmed by ZIGGY DANGELO, OSKAR ([id number]), senior technical editor BRIAN FIGUEROA ([id number]) on 05/31/2021 1:16:50 PM Referred By: GAEL Confirmed By:OSKAR TRINH MD
[2021-05-28 00:18] LABS: Absolute Lymphocyte Count 1.92 X10^3/uL (0.83-4.51); Absolute Neutrophil Count 4.5 X10^3/uL (2.0-7.7); Basophil# 0.05 X10^3/uL; Basophil% 0.7 % (0-1); Eosinophil# 0.18 X10^3/uL; Eosinophils% 2.5 % (0-5); Hematocrit 41.9 % (37-47); Hemoglobin 14.1 g/dL (12.0-15.0); Lymphocyte # 1.92 X10^3/ul (0.83-4.51); Lymphocyte % 26.3 % (19-41); Mean Corp Hgb Conc 33.7 g/dL (32-36); Mean Corpuscular Volume 92.1 fL (81-99); Mean Platelet Vol. 9.1 fl (6.2-12.0); Monocyte# 0.67 X10^3/uL; Monocyte% 9.2 % (0-10); NRBC Flagged by Analyzer 0 % (0-5); Neutrophil # 4.47 X10^3/uL (2.7-7.7); Platelet Count 303 K/mm3 (150-450); RBC Distribution Width CV 11.9 % (11.6-14.6); RBC Distribution Width SD 40.2 fl (35.1-43.9); Red Blood Count 4.55 M/mm3 (4.2-5.4); White Blood Count 7.3 K/mm3 (4.4-11.0)
[2021-05-28 00:28] LABS: Anion Gap 6 (5-15); BUN 16 mg/dL (7-18); BUN/Creat Ratio 22.3 RATIO (10-20); Calcium,Total 8.7 mg/dL (8.5-10.1); Chloride 108 mmol/L (98-107); Creatinine, Serum 0.72 mg/dL (0.55-1.02); EST Glomerular Filtration Rate 99 mL/min (>60); Est Glom Filt Rate - Afr Amer 120 mL/min (>60); Estimated Creatinine Clearance 104.04 ml/min; Glucose 90 mg/dL (74-106); Potassium 3.7 mmol/L (3.5-5.1); Sodium Level 140 mmol/L (136-145)
[2021-05-28 02:12] VITALS: BP 121/90; PULSE 78; RESP 17; O2SAT 100
--- NOTE | 2021-05-28 06:20 | EDS_ITS ---
HPI History of Present Illness Chief Complaint: Palpitations Informant: patient Onset/Context/Timing Onset: Month(s) Timing: Intermittent Current Severity: Mild Maximum Severity: Moderate Narrative Narrative: Patient presents secondary to palpitations. She states she has had sensation of her heart racing for months. She had a baby last fall and states after this it resolved for a short time and then restarted. Today she noted some fluttering sensation in her chest as well. She states she will occasionally feel lightheaded as if she is going to pass out. She denies chest pain or shortness of breath. She has noted recent weight gain and feeling like her ankles are swollen. Patient was seen by her PCP and had labs performed last week including TSH that were unremarkable. Patient reports being treated for Lyme disease approximately 10 years ago. She was told at that time that she had an enlarged heart. She if unsure if that is contributing to her current symptoms. [facility] Medical History Anxiety Depression Hypertension Home Medications diphenhydramine HCl 37.5 mg PO QHS PRN PRN 10/13/20 [History Last Taken 10/12/20 22:00 75] lisdexamfetamine 60 mg PO DAILY 10/13/20 [History Last Taken 10/13/20 09:00] nifedipine 30 mg PO DAILY 10/13/20 [History Last Taken 10/13/20 09:00] aspirin 81 mg PO DAILY 05/27/21 [History Last Taken Unknown] loratadine [Claritin] 10 mg PO DAILY 05/27/21 [History Last Taken Unknown] sertraline 12.5 mg PO DAILY 05/27/21 [History Last Taken Unknown] Allergy/AdvReac Type Severity Reaction Status Date / Time Penicillins Allergy Rash Verified 10/13/20 19:33 Social History Smoking Status: Former smoker ROS ROS ED Constitutional Constitutional ED: Denies chills or fever(s) Eyes Eyes: Denies change in vision ENT ENT ED: Denies sore throat Cardiovascular Cardiovascular: Reports palpitations and racing heartbeat; Denies chest pain Respiratory/Chest Respiratory/Chest: Denies cough or dyspnea Gastrointestinal Gastrointestinal: Denies abdominal pain, diarrhea, nausea or vomiting Genitourinary Genitourinary ED: Denies dysuria Musculoskeletal Musculoskeletal: Denies back pain Integumentary Denies rash Neurologic Neurologic: Denies headache(s) or weakness Psychiatric Psychiatric: Denies anxiety or depression Endocrine Endocrinology: Denies polydipsia or polyuria Allergic/Immunologic Allergic/Immunologic ED: Denies urticaria EXAM Physical Exam Const Vital Signs: 05/27/21 23:36 05/27/21 23:58 05/28/21 02:12 Temperature 97.4 F L Temperature Source Temporal Pulse Rate 99 85 78 Respiratory Rate 20 H 14 17 Respiratory Effort Normal Non-Labored Blood Pressure 151/100 H 145/105 H 121/90 H Blood Pressure Mean 117 118 Pulse Ox 100 99 100 Oxygen Delivery Method Room Air Room Air Positive well nourished and well developed General Appearance ED: well developed HEENT Reports normocephalic and head/scalp atraumatic Eyes PERRL and EOMs intact bilaterally Neck supple Chest Wall inspection of chest normal and palpation of chest normal Resp normal respiratory effort and clear to auscultation bilaterally Cardio regular rate and regular rhythm GI normal to inspection, nondistended, normoactive bowel sounds Palpation: soft Back/Spine no CVA tenderness Extremity normal to inspection Neuro oriented x3 and no sensory deficits noted Sensorium / Orientation: alert Motor Exam: strength 5/5 throughout Psych mental status grossly normal Skin no rashes or lesions noted MDM MDM MDM Narrative Medical decision making narrative: 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 Labs, EKG are obtained. I did review the lab work from last week which included TSH that was not repeated. Lab Data Attestation: I reviewed the patient's lab results. Labs: Laboratory Results - last 24 hr 05/27/21 05/27/21 23:55 23:55 WBC 7.3 RBC 4.55 Hgb 14.1 Hct 41.9 MCV 92.1 MCH 31.0 MCHC 33.7 RDW Std Deviation 40.2 RDW Coeff of Ralf 11.9 Plt Count 303 MPV 9.1 Immature Gran % (Auto) 0.300 Neut % (Auto) 61.0 Lymph % (Auto) 26.3 Terrell % (Auto) 9.2 Eos % (Auto) 2.5 Baso % (Auto) 0.7 Absolute Neuts (auto) 4.5 Absolute Lymphs (auto) 1.92 Nucleated RBC % 0 Sodium 140 Potassium 3.7 Chloride 108 H Carbon Dioxide 26.0 Anion Gap 6 BUN 16 Creatinine 0.72 Estim Creat Clear Calc 104.04 Est GFR (MDRD) Af Amer 120 Est GFR (MDRD) Non-Af 99 BUN/Creatinine Ratio 22.3 H Glucose 90 Calcium 8.7 Radiography Chest X-Ray - ED: 1 View, Read by ED Physician, Normal, Heart, Lungs and Mediastinum Diagnostic Testing: Radiology Impression Chest X-Ray 05/28/21 00:08 IMPRESSION: Normal x-ray examination of the chest. Electronically Signed: Venita Lenog MD at 0:37 EDT , Service support , EKG Initial EKG: Attestation: I personally reviewed and interpreted this EKG as follows: Interpretation: Sinus Rhythm (Sinus at 97 with no acute ischemia.) Treatment and Re-Evaluation Comments:: Patient has had no arrhythmias noted on route driver coin machines. Portable chest x-ray reveals no obvious cardiac enlargement per my interpretation. Radiologist interpretation is reviewed. Labs are unremarkable with normal electrolytes. Test results discussed with the patient. I did recommend following with her PCP for possible Holter monitor and/or echocardiogram. Discharge Plan Triage Chief Complaint: Palpitations ED Provider: Lila Solis Dx/Rx/DC Orders Clinical Impression: Palpitations Instructions: ED Palpitations Prescriptions: No Action nifedipine 30 MG tablet extended release 24hr 30 mg PO DAILY RF: 0 diphenhydramine HCl 25 MG capsule 37.5 mg PO QHS PRN PRN (Reason: Insomnia) RF: 0 lisdexamfetamine 60 MG capsule 60 mg PO DAILY RF: 0 sertraline 25 mg tablet 12.5 mg PO DAILY RF: 0 aspirin 81 mg Tablet 81 mg PO DAILY RF: 0 loratadine [Claritin] 10 mg Tablet 10 mg PO DAILY RF: 0 Primary Care Provider: Jimenez Hutchison Referrals: Jimenez Hutchison MD [Primary Care Provider] - 1 Week if not improving Activity Restrictions/Additional Instructions: As discussed, recommend following up with your primary care physician for potential Holter monitor and echocardiogram. Denies blood work does not reveal an acute cause of your palpitations. No irregular heart rates were noted on your cardiac monitoring. Disposition Disposition: Home, Self Care Discharge Date/Time: 05/28/21 02:13
== END 2021-05-28 02:13 | disposition home or self-care (01) ==
PROVIDERS: Emergency Provider Emergency Medicine; PCP Family Medicine
DX: R00.2 Palpitations (principal); Z87.891 Personal history of nicotine dependence; F32.9 Major depressive disorder, single episode, unspecified; F41.9 Anxiety disorder, unspecified; I10 Essential (primary) hypertension; Z79.82 Long term (current) use of aspirin
CPT/HCPCS: 71045; 80048; 85025; 93005; 99285; J7040; A4216

== ENCOUNTER → 2021-06-21 14:46 | Outpatient (CLI) | payer MEDICAID, SELFPAY ==
[2021-05-27 23:36] VITALS: BMI 34.2
[2021-06-21 17:39] LABS: Absolute Lymphocyte Count 1.34 X10^3/uL (0.83-4.51); Absolute Neutrophil Count 6.2 X10^3/uL (2.0-7.7); Basophil# 0.05 X10^3/uL; Basophil% 0.6 % (0-1); Eosinophil# 0.13 X10^3/uL; Eosinophils% 1.5 % (0-5); Hematocrit 42.4 % (37-47); Hemoglobin 14.3 g/dL (12.0-15.0); Lymphocyte # 1.34 X10^3/ul (0.83-4.51); Lymphocyte % 15.8 % (19-41); Mean Corp Hgb Conc 33.7 g/dL (32-36); Mean Corpuscular Hgb 30.9 pg (27.0-32.0); Mean Corpuscular Volume 91.6 fL (81-99); Mean Platelet Vol. 9.6 fl (6.2-12.0); Monocyte# 0.71 X10^3/uL; Monocyte% 8.4 % (0-10); NRBC Flagged by Analyzer 0 % (0-5); Neutrophil # 6.21 X10^3/uL (2.7-7.7); Neutrophil % 73.3 % (47-70); Platelet Count 307 K/mm3 (150-450); RBC Distribution Width CV 11.8 % (11.6-14.6); RBC Distribution Width SD 39.3 fl (35.1-43.9); Red Blood Count 4.63 M/mm3 (4.2-5.4); White Blood Count 8.5 K/mm3 (4.4-11.0)
[2021-06-21 18:04] LABS: Ferritin 39 ng/mL (8-252)
[2021-06-21 18:13] LABS: Vitamin B12 400 pg/mL (211-911)
[2021-06-23 16:10] LABS: ANTINUCLEAR ANTIBODIES DIRECT Negative (Negative)
== END ==
PROVIDERS: PCP Family Medicine; Referring Provider Family Medicine; Visit Provider Family Medicine
DX: R00.2 Palpitations (principal)
CPT/HCPCS: 36415; 82607; 82728; 85025; 86038; 86769

== ENCOUNTER → 2021-07-03 13:50 | Outpatient (CLI) | payer MEDICAID, SELFPAY ==
--- NOTE | 2021-07-03 14:03 | BI_ITS ---
MAMMOGRAPHY - BILATERAL SCREENING REASON FOR EXAM: Female, 31 years old. Routine annual screening examination. PERTINENT HISTORY: Mother with breast cancer. TECHNIQUE: Digital bilateral breast kay (3D mammographic acquisition) in the CC and MLO projections. 2-D mediolateral oblique (MLO) and craniocaudad (CC) views of both breasts were obtained. CAD: Full Field Digital Mammography with Computer Added Detection was performed. COMPARISON: None. Baseline examination. FINDINGS: Breast Composition: The breasts are heterogeneously dense, which may obscure small masses. There are no dominant masses or suspicious calcifications. No other significant abnormalities are identified. BI/SCRN MAMM (CAD)W/KAY BILAT IMPRESSION: Negative screening mammogram. Yearly followup mammogram recommended. (A) ASSESSMENT CATEGORY: BIRADS Category 1: Negative. A letter regarding these results will be sent to the patient by the facility within 30 days. Approximately 10% of breast cancers are not detected by mammography. A normal mammogram should not delay biopsy of a clinically suspicious abnormality. [id number] Electronically Signed: Kunal Rivas MD at 15:04 EDT , Service support ,
== END ==
PROVIDERS: PCP Family Medicine; Referring Provider Obstetrics & Gynecology; Visit Provider Obstetrics & Gynecology
DX: Z12.31 Encounter for screening mammogram for malignant neoplasm of breast (principal); Z80.3 Family history of malignant neoplasm of breast
CPT/HCPCS: 77063; 77067

== ENCOUNTER → 2021-07-17 13:40 | Outpatient (CLI) | payer MEDICAID, SELFPAY ==
--- NOTE | 2021-07-17 13:43 | ECHOD_ITS ---
Reason For Study: SVT Procedure This was a 2D Doppler, Color Flow transthoracic echocardiogram. The exam was of adequate technical quality. Exam performed in department. Left Ventricle Normal LV size. Left ventricular systolic function is normal. The estimated ejection fraction is 60 %. No evidence for diastolic dysfunction. No regional wall motion abnormalities noted. Right Ventricle Normal RV size. Normal systolic function. Atria Normal left atrium. Normal right atrium. No doppler evidence for ASD. Mitral Valve There is no mitral annular calcification. Normal mitral valve. Trivial mitral valve insufficiency. Tricuspid Valve Normal tricuspid valve. Trivial tricuspid valve insufficiency. Unable to estimate RV systolic pressure due to insufficient tricuspid regurgitant envelope. Aortic Valve Trisinus/trileaflet aortic valve. Normal aortic valve. Pulmonic Valve The pulmonic valve is not well visualized. Great Vessels The aortic root is not well visualized. Pericardium/Pleural No pericardial effusion. MMode/2D Measurements & Calculations LVIDd: 4.0 cm IVSd: 1.0 cm LA dimension: 3.2 cm LVIDs: 3.0 cm LVPWd: 0.92 cm RVDd: 3.0 cm FS: 25.4 % LAV(MOD-bp): 35.2 ml LA A4 area: 13.2 cm2 RA A4 area: 9.9 cm2 LAV(MOD-bp) Indexed: 17.1 ml/m2 LAV(MOD-sp2): 37.4 ml LAV(MOD-sp4): 30.0 ml Time Measurements MV dec time: 0.25 sec Doppler Measurements & Calculations MV E max amos: 98.8 cm/sec Lat Peak E' Amos: 15.4 cm/sec Med Peak E' Amos: 11.2 cm/sec MV A max amos: 78.9 cm/sec E/E' lat: 6.4 E/E' med: 8.8 MV E/A: 1.3 MV V2 max: 111.0 cm/sec MV P1/2t max amos: 112.5 cm/sec Ao V2 max: 113.2 cm/sec MV max P.9 mmHg MV P1/2t: 66.4 msec Ao max P.1 mmHg MV V2 mean: 64.8 cm/sec MV dec slope: 495.8 cm/sec2 MV mean P.0 mmHg MVA(P1/2t): 3.3 cm2 MV V2 VTI: 23.4 cm LV V1 max: 99.7 cm/sec PA V2 max: 92.5 cm/sec LV V1 max P.0 mmHg ECHO/Echo Complete Interpretation Summary Left ventricular systolic function is normal. The estimated ejection fraction is 60 %. Trivial mitral valve insufficiency. Trivial tricuspid valve insufficiency. Unable to estimate RV systolic pressure due to insufficient tricuspid regurgita nt envelope. No evidence for diastolic dysfunction. Ordering Physician: Jimenez Hutchison Referring Physician: Jimenez Hutchison Performed By: Constantine Rodriguez RCS
== END ==
PROVIDERS: PCP Family Medicine; Referring Provider Family Medicine; Visit Provider Family Medicine
DX: I47.1 Supraventricular tachycardia (principal)
CPT/HCPCS: 93306

== ENCOUNTER → 2021-08-17 14:32 | Outpatient (CLI) | payer MEDICAID, SELFPAY ==
[2021-08-25 09:09] LABS: Epinephrine, Pl 21 pg/mL (0-62)
[2021-08-25 10:18] LABS: Dopamine, Pl <30 pg/mL (0-48)
== END ==
PROVIDERS: PCP Family Medicine; Referring Provider Internal Medicine Cardiovascular Disease; Visit Provider Internal Medicine Cardiovascular Disease
DX: I47.1 Supraventricular tachycardia (principal); R00.2 Palpitations
CPT/HCPCS: 36415; 82384

== ENCOUNTER → 2021-08-22 10:39 | Outpatient (CLI) | payer MEDICAID, SELFPAY ==
[2021-08-27 15:07] LABS: Dopamine, UR 79 ug/L (Undefined); Epinephrine, 24Ur 9 ug/24 hr (0-20); Epinephrine, Ur 3 ug/L (Undefined); Norepinephrine, 24Ur 56 ug/24 hr (0-135); Norepinephrine, Ur 18 ug/L (Undefined); VMA, 24UR 4.1 mg/24 hr (0.0-7.5)
[2021-08-27 15:52] LABS: Dopamine, 24Ur 247 ug/24 hr (0-510); VMA, UR 1.3 mg/L (Undefined)
== END ==
PROVIDERS: PCP Family Medicine; Referring Provider Internal Medicine Cardiovascular Disease; Visit Provider Internal Medicine Cardiovascular Disease
DX: R00.2 Palpitations (principal); I47.1 Supraventricular tachycardia
CPT/HCPCS: 81050; 82384; 84585

== ENCOUNTER 2022-01-29 10:01 | Outpatient (CLI) | payer MEDICAID, SELFPAY | END 2022-01-29 23:59 | disposition home or self-care (01) | LOC: PSN 10:04 | PROVIDERS: PCP Family Medicine; Referring Provider Physician Assistant Medical; Visit Provider Physician Assistant Medical | DX: I47.1 Supraventricular tachycardia (principal) | CPT/HCPCS: 93225; 93226 ==

== ENCOUNTER → 2023-02-14 | Outpatient (CLI) | payer MEDICAID, SELFPAY ==
[2023-02-14 15:27] LABS: Progesterone Level 7.29 ng/mL (See Comment)
== END | disposition home or self-care (01) ==
PROVIDERS: PCP Family Medicine; Referring Provider Obstetrics & Gynecology; Visit Provider Obstetrics & Gynecology
DX: E28.9 Ovarian dysfunction, unspecified (principal)
CPT/HCPCS: 36415; 84144

== ENCOUNTER → 2023-02-22 | Outpatient (CLI) | payer MEDICAID, SELFPAY ==
[2023-02-22 15:10] LABS: Progesterone Level 0.37 ng/mL (See Comment)
[2023-02-22 16:11] LABS: Follicle Stimulating Hormone 5.9 mIU/mL; Free T3 2.6 pg/mL (2.18-3.98); Prolactin 4.2 ng/mL
[2023-02-27 13:18] LABS: Testosterone, % Free 1.52 % (0.50-2.80); Testosterone, Total 26 ng/dL (8-60)
[2023-02-27 14:11] LABS: Sex Hormone-binding Globulin 59.8 nmol/L (24.6-122.0)
== END | disposition home or self-care (01) ==
LOC: LAB 14:05
PROVIDERS: PCP Family Medicine
DX: I47.1 Supraventricular tachycardia (principal); T78.1XXA Other adverse food reactions, not elsewhere classified, initial encounter; N92.0 Excessive and frequent menstruation with regular cycle
CPT/HCPCS: 36415; 82533; 82627; 82670; 83001; 83002; 84144; 84146; 84270; 84402; 84403; 84481; 82626

== ENCOUNTER → 2023-03-18 | Outpatient (CLI) | payer MEDICAID, SELFPAY ==
--- NOTE | 2023-03-18 08:08 | BI_ITS ---
MAMMOGRAPHY - BILATERAL SCREENING REASON FOR EXAM: Female, 33 years old. Routine annual screening examination. PERTINENT HISTORY: Mother with breast cancer. TECHNIQUE: Digital bilateral breast kay (3D mammographic acquisition) in the CC and MLO projections. 2-D mediolateral oblique (MLO) and craniocaudad (CC) views of both breasts were obtained. CAD: Full Field Digital Mammography with Computer Added Detection was performed. COMPARISON: Comparison is made with prior examination dated July 03, 2021. FINDINGS: Breast Composition: The breasts are heterogeneously dense, which may obscure small masses. There are no dominant masses or suspicious calcifications. No other significant abnormalities are identified. There has been no significant change since the prior study. BI/SCRN MAMM (CAD)W/KAY BILAT IMPRESSION: Stable bilateral screening mammogram. Yearly follow-up mammogram recommended. (A) ASSESSMENT CATEGORY: BIRADS Category 1: Negative. A letter regarding these results will be sent to the patient by the facility within 30 days. Approximately 10% of breast cancers are not detected by mammography. A normal mammogram should not delay biopsy of a clinically suspicious abnormality. [id number] Electronically Signed: Kunal Rvias MD at 9:06 EDT ,
== END | disposition home or self-care (01) ==
LOC: OPBI 08:07
PROVIDERS: PCP Family Medicine; Referring Provider Obstetrics & Gynecology; Visit Provider Obstetrics & Gynecology
DX: Z12.31 Encounter for screening mammogram for malignant neoplasm of breast (principal); Z80.3 Family history of malignant neoplasm of breast
CPT/HCPCS: 77063; 77067

== ENCOUNTER → 2024-02-28 | Outpatient (CLI) | payer MEDICAID, SELFPAY ==
[2024-02-28 15:18] LABS: Progesterone Level 11.28 ng/mL (See Comment)
== END | disposition home or self-care (01) ==
LOC: LAB 13:26
PROVIDERS: Referring Provider Obstetrics & Gynecology; Visit Provider Obstetrics & Gynecology
DX: E28.9 Ovarian dysfunction, unspecified (principal); N92.6 Irregular menstruation, unspecified
CPT/HCPCS: 36415; 82670; 84144

== ENCOUNTER → 2024-03-02 | Outpatient (CLI) | payer MEDICAID, SELFPAY ==
[2024-03-02 11:20] LABS: Progesterone Level 6.83 ng/mL (See Comment)
[2024-03-02 11:26] LABS: Estradiol 68.5 pg/mL
== END | disposition home or self-care (01) ==
LOC: LAB 10:42
PROVIDERS: Referring Provider Obstetrics & Gynecology; Visit Provider Obstetrics & Gynecology
DX: E28.9 Ovarian dysfunction, unspecified (principal); N92.6 Irregular menstruation, unspecified
CPT/HCPCS: 36415; 82670; 84144

== ENCOUNTER → 2024-03-04 | Outpatient (CLI) | payer MEDICAID, SELFPAY ==
[2024-03-04 11:42] LABS: Progesterone Level 5.31 ng/mL (See Comment)
[2024-03-04 11:44] LABS: Estradiol 71.4 pg/mL
== END | disposition home or self-care (01) ==
LOC: LAB 10:39
PROVIDERS: Referring Provider Obstetrics & Gynecology; Visit Provider Obstetrics & Gynecology
DX: E28.9 Ovarian dysfunction, unspecified (principal); N92.6 Irregular menstruation, unspecified
CPT/HCPCS: 36415; 82670; 84144

== ENCOUNTER → 2024-03-05 | Outpatient (CLI) | payer MEDICAID, SELFPAY ==
--- NOTE | 2024-03-05 09:22 | BI_ITS ---
MAMMOGRAPHY - BILATERAL DIAGNOSTIC REASON FOR EXAM: Female, 34 years old. Palpable lump in the anterior upper slightly medial position of the left breast. PERTINENT HISTORY: Mother with breast cancer. TECHNIQUE: Digital bilateral breast jenni (3D mammographic acquisition) in the CC and MLO projections. 2-D mediolateral oblique (MLO) and craniocaudad (CC) views of both breasts were obtained. CAD: Full Field Digital Mammography with Computer Added Detection was performed. COMPARISON: Comparison is made with prior study dated March 18, 2023. FINDINGS: Breast Composition: The breasts are heterogeneously dense, which may obscure small masses. There are no dominant masses or suspicious calcifications. No other significant abnormalities are identified. There has been no significant change since the prior study. BI/DIAG MAMM W/CAD, BILAT IMPRESSION: Stable bilateral diagnostic mammogram. With the patient''s history of a palpable lump in the left breast, correlation with ultrasound is recommended for further evaluation. ASSESSMENT CATEGORY: BIRADS Category 0: Incomplete. Need additional imaging evaluation. A letter regarding these results will be sent to the patient by the facility within 30 days. Approximately 10% of breast cancers are not detected by mammography. A normal mammogram should not delay biopsy of a clinically suspicious abnormality. Electronically Signed: Kunal Rivas MD at 10:59 EDT ,
--- NOTE | 2024-03-05 09:22 | US_ITS ---
STUDY: ULTRASOUND BREAST - LEFT REASON FOR EXAM: Female, 34 years old. Palpable lump left breast. TECHNIQUE: Axial and longitudinal images of the LEFT breast were performed with a high resolution ultrasound transducer. # OF IMAGES: 31 COMPARISON: Comparison is made with prior mammogram done earlier in the day. FINDINGS: LEFT Breast: The upper half of the left breast was examined with ultrasound. There is dense fibroglandular tissue. Incidental note is made of a 1.2 cm x 0.9 cm x 0.5 cm benign appearing lymph node at the 11:00 position of the breast at 6 cm from the nipple. US/Breast Limited Unilateral IMPRESSION: No suspicious abnormality is seen. ASSESSMENT CATEGORY: BIRADS Category 2: Benign. A letter regarding these results will be sent to the patient by the facility within 30 days. Electronically Signed: Kunal Rivas MD at 14:48 EDT ,
== END | disposition home or self-care (01) ==
LOC: OPBI 09:20
PROVIDERS: Referring Provider Obstetrics & Gynecology; Visit Provider Obstetrics & Gynecology
DX: N63.0 Unspecified lump in unspecified breast (principal); Z80.3 Family history of malignant neoplasm of breast
CPT/HCPCS: 77062; 76642; 77066; G0279

== ENCOUNTER → 2024-03-06 | Outpatient (CLI) | payer MEDICAID, SELFPAY ==
[2024-03-06 17:26] LABS: Estradiol 46.1 pg/mL
[2024-03-06 17:28] LABS: Progesterone Level 4.14 ng/mL (See Comment)
== END | disposition home or self-care (01) ==
LOC: LAB 16:34
PROVIDERS: Referring Provider Obstetrics & Gynecology; Visit Provider Obstetrics & Gynecology
DX: N92.6 Irregular menstruation, unspecified (principal); E28.9 Ovarian dysfunction, unspecified
CPT/HCPCS: 36415; 82670; 84144

== ENCOUNTER → 2024-04-23 | Outpatient (CLI) | payer MEDICAID, SELFPAY ==
[2024-04-24 08:12] LABS: PROGESTERONE 39.6 ng/mL (.)
== END | disposition home or self-care (01) ==
LOC: LAB 09:03
DX: N97.9 Female infertility, unspecified (principal)
CPT/HCPCS: 36415; 84144

== ENCOUNTER → 2024-05-01 | Outpatient (CLI) | payer MEDICAID, SELFPAY ==
[2024-05-01 13:17] LABS: hCG Titer Quant., Serum 58 mIU/mL (1-3)
[2024-05-02 04:08] LABS: PROGESTERONE 42.8 ng/mL (.)
== END | disposition home or self-care (01) ==
LOC: LAB 11:09
DX: Z32.00 Encounter for pregnancy test, result unknown (principal); O09.01 Supervision of pregnancy with history of infertility, first trimester; O02.1 Missed abortion
CPT/HCPCS: 36415; 84144; 84443; 84702

== ENCOUNTER → 2024-05-05 | Outpatient (CLI) | payer MEDICAID, SELFPAY ==
[2024-05-05 08:53] LABS: hCG Titer Quant., Serum 373 mIU/mL (1-3)
== END | disposition home or self-care (01) ==
LOC: LAB 07:58
DX: O02.1 Missed abortion (principal)
CPT/HCPCS: 36415; 84702

== ENCOUNTER → 2024-05-07 | Outpatient (CLI) | payer MEDICAID, SELFPAY ==
[2024-05-07 10:42] LABS: Thyroid Stim Hormone (TSH) 0.74 uIU/mL (0.358-3.74)
[2024-05-07 10:54] LABS: hCG Titer Quant., Serum 929 mIU/mL (1-3)
[2024-05-08 04:07] LABS: PROGESTERONE 56.6 ng/mL (.)
== END | disposition home or self-care (01) ==
LOC: LAB 09:04
DX: Z32.00 Encounter for pregnancy test, result unknown (principal); O09.01 Supervision of pregnancy with history of infertility, first trimester; O02.1 Missed abortion
CPT/HCPCS: 36415; 84144; 84443; 84702

== ENCOUNTER → 2024-05-11 | Outpatient (CLI) | payer MEDICAID, SELFPAY ==
[2024-05-11 22:21] LABS: hCG Titer Quant., Serum 3390 mIU/mL (1-3)
[2024-05-13 04:07] LABS: PROGESTERONE 48.9 ng/mL (.)
== END | disposition home or self-care (01) ==
LOC: LAB 15:18
DX: O09.01 Supervision of pregnancy with history of infertility, first trimester (principal); O02.1 Missed abortion; O00.90 Unspecified ectopic pregnancy without intrauterine pregnancy; Z32.00 Encounter for pregnancy test, result unknown
CPT/HCPCS: 36415; 84144; 84443; 84702

== ENCOUNTER → 2024-08-19 | Outpatient (CLI) | payer MEDICAID, SELFPAY ==
--- NOTE | 2024-08-19 15:23 | US_ITS ---
EXAM: US SECOND OR THIRD TRIMESTER , TRANSABDOMINAL AND TRANSVAGINAL CLINICAL INDICATION: anatomy TECHNIQUE: Transabdominal and endovaginal obstetrical ultrasound of the maternal pelvis and a second or third trimester with image documentation. Endovaginal imaging was used for better evaluation of the fetus and adnexa. COMPARISON: No relevant prior studies available. FINDINGS: FETUS: Single viable IUP. HEART RATE: heart rate: 137 bpm. PRESENTATION: Breech presentation. PLACENTA: Anterior and fundal placenta appears normal. No placenta previa. No abruption. AMNIOTIC FLUID: Amniotic fluid volume is subjectively normal with maximal vertical pocket of 4.2 cm. ANATOMY: Four-chamber heart is visualized. Three-vessel umbilical cord. Upper and lower extremities are visualized and appear normal. The diaphragm appears intact. Normal appearance of the intracranial structures. No distinct spinal abnormality is identified. Normal appearance of the stomach, kidneys, and bladder. Normal abdominal cord insertion. BIOMETRICS GESTATIONAL AGE: 19 weeks, 2 days. JANNETH: 01/11/2024. EFW: Estimated weight: 318 g (53%). BPD: 4.15 cm. HC: 16.3 cm. AC: 14.60 cm. FL: 3.28 cm. MATERNAL: UTERUS: No significant abnormality. No myometrial mass. CERVIX: The cervix is closed measuring 4.6 cm. ADNEXA: The maternal ovaries are not visualized. FREE FLUID: None. IMPRESSION: Single viable IUP of approximately 19 weeks, 2 days. Electronically Signed: Ricardo Nunez DO at 21:30 EDT , EXAM: US SECOND OR THIRD TRIMESTER , TRANSABDOMINAL AND TRANSVAGINAL CLINICAL INDICATION: anatomy TECHNIQUE: Transabdominal and endovaginal obstetrical ultrasound of the maternal pelvis and a second or third trimester with image documentation. Endovaginal imaging was used for better evaluation of the fetus and adnexa. COMPARISON: No relevant prior studies available. FINDINGS: FETUS: Single viable IUP. HEART RATE: heart rate: 137 bpm. PRESENTATION: Breech presentation. PLACENTA: Anterior and fundal placenta appears normal. No placenta previa. No abruption. AMNIOTIC FLUID: Amniotic fluid volume is subjectively normal with maximal vertical pocket of 4.2 cm. ANATOMY: Four-chamber heart is visualized. Three-vessel umbilical cord. Upper and lower extremities are visualized and appear normal. The diaphragm appears intact. Normal appearance of the intracranial structures. No distinct spinal abnormality is identified. Normal appearance of the stomach, kidneys, and bladder. Normal abdominal cord insertion. BIOMETRICS GESTATIONAL AGE: 19 weeks, 2 days. JANNETH: 01/11/2024. EFW: Estimated weight: 318 g (53%). BPD: 4.15 cm. HC: 16.3 cm. AC: 14.60 cm. FL: 3.28 cm. MATERNAL: UTERUS: No significant abnormality. No myometrial mass. CERVIX: The cervix is closed measuring 4.6 cm. ADNEXA: The maternal ovaries are not visualized. FREE FLUID: None. US/OB Anatomy w/ Transvaginal IMPRESSION: Single viable IUP of approximately 19 weeks, 2 days. Electronically Signed: Ricardo Nunez DO at 21:31 EDT ,
== END | disposition home or self-care (01) ==
LOC: US 15:21
PROVIDERS: Referring Provider Obstetrics & Gynecology; Visit Provider Obstetrics & Gynecology
DX: O09.90 Supervision of high risk pregnancy, unspecified, unspecified trimester (principal); Z3A.00 Weeks of gestation of pregnancy not specified
CPT/HCPCS: 76805; 76817

== ENCOUNTER 2024-10-07 19:40 | Outpatient (CLI) | payer MEDICAID, SELFPAY ==
[2024-10-07 19:45] VITALS: BMI 34.3
[2024-10-07 19:57] VITALS: RESP 16; TEMP 36.4
[2024-10-07 19:58] VITALS: BP 143/91; PULSE 103
--- NOTE | 2024-10-07 20:36 | OB.TRI.HP_ITS ---
HPI - General HPI Narrative ABENA GREEN, is a 34 F who presents at 26.5 weeks with bright red vaginal bleeding noted when wiping after using the bathroom. pad had multiple quarter size bright red bleeding. denies cramping, ctx or lof. Maternal Data Information JANNETH Calculator Estimated Delivery Date Method Current WG Current Estimate 01/08/25 LMP (Certain) 26w 5d PFSH PFSH Medical History FH: breast cancer in first degree relative Seasonal allergies Pain management History of endometrial biopsy SVT (supraventricular tachycardia) Lyme disease Depression Anxiety Hypertension (spontaneous vaginal delivery) 39 weeks gestation of Home Medications ?Medication ?Instructions ?Recorded ?Last Taken ?Type aspirin 81 mg chewable tablet 81 mg PO QHS 08/14/24 Unknown History desvenlafaxine succinate 50 mg 50 mg PO QDAY 08/14/24 Unknown History tablet,extended release 24 hr (Pristiq) diphenhydramine HCl 25 mg capsule 12.5 mg PO QHS PRN PRN Insomnia 08/14/24 Unknown History lisdexamfetamine 60 mg capsule 70 mg PO DAILY Check with primary 08/14/24 Unknown History doctor multivitamin no.47-iron fum 27 1 cap PO DAILY 08/14/24 Unknown History mg-folate no.1 1 mg-dha 300 mg capsule (PNV-DHA) naltrexone 4.5 mg capsule 4.5 mg PO DAILY inflamation 08/14/24 Unknown History Allergy/AdvReac Type Severity Reaction Status Date / Time adhesive tape (adhesives - Allergy Mild Other Verified 10/07/24 20:00 tape) Family History Father Myocardial infarction 4-5 [place] CAD (coronary artery disease) Diabetes Grandmother Diabetes Paternal Myocardial infarction, Onset Age: 30 Grandfather Cancer Paternal unsure what kind of cancer Mother Breast cancer, Onset Age: 38 x2 Surgical History [place] teeth extracted Social History adopted: No household members: spouse and children number of children: 1 current occupational status: unemployed current occupation: [employer] current occupational exposures/hazards: No pets and animals: Yes (Avoid litter box) pets and animals: cat(s), dog(s) and other details: mini horses history of recent travel: No sexually active: Yes Smoking Status: Former smoker how long ago did patient quit smokin alcohol intake: current alcohol intake frequency: holidays/special occasions only details: not while substance use type: does not use diet: other well-balanced diet: daily or most days caffeine: Yes (minimal amount) Type: coffee Number of servings: 1 eating out: rarely or never during the past year weight has: increased > 10 lbs what type of physical activity do you participate in: none chirag/taoist: None seatbelt use: always do you feel safe at home: Yes additional social history: [employer] History 3 Elective abortions 1 Hx Para 1 Spontaneous abortions Hx # Term Pregnancies Ectopic pregnancies Hx # Pregnancies Multiple births # of living children 1 Past Pregnancies Del. Date Name GA/Weeks Outcome Route [facility]th [facility] 6 elective 10/14/20 Zavala 39 live - full term 7#11oz Male none [facility] [place] Delivery Date: 10/14/20 Last Updated by: Itzel Marti IOL, gestational HTN Visit Details Expected Delivery Route/Plan Labor Preferences- CB/BF classes: [] labor support person: [] labor intervention preferences: [] pain management options preferred: [] cut cord/dad catch: [] : [] PP control planned: [] discussed possible routes of delivery and associated risks: [] special requests: [] Plans Covid status: [] Flu vaccine: [] Tdap vaccine: [] Rhogam: [] LARC form signed: [] Problem list reviewed and updated with the most current plan of care details and appropriate orders placed. Relevant counseling for the gestational age provided. Continue routine care and follow up unless otherwise noted in visit notes/problem list details OB Flowsheet Initial Weight: 190 lb Date -?-?-?-?-?-?-?-?-?-?-?-?- EGA Weight BP Urine Prot -?-?-?-?-?-?-?-?-?-?-?-?- Glucose FHR FuHt Pres Dilation -?-?-?-?-?-?-?-?-?-?-?-?- Effaced St Visit Note 08/18/24 -?-?-?-?-?-?-?-?-?-?-?-?- 19w 4d 203 lb (+13 lb) 139/93 -?-?-?-?-?-?-?-?-?-?-?-?- 150 -?-?-?-?-?-?-?-?-?-?-?-?- Sm- ZACHARY from [facility] specialist no vb cramping 09/15/24 -?-?-?-?-?-?-?-?-?-?-?-?- 23w 4d 208 lb (+18 lb) 137/94 124/86 Negative -?-?-?-?-?-?-?-?-?-?-?-?- Negative 135 -?-?-?-?-?-?-?-?-?-?-?-?- KW- no vb/lof/ct x. good fm. discussed 28 week labs NST FHR Rate Baby A Baseline: 140 Variability:: Moderate Accelerations:: 10 x 10 Decelerations:: None NST Reactive:: Yes and Appropriate for gestational age FHR Category:: Category I Uterine Activity:: none Assessment & Plan (1) Vaginal bleeding during : COMMENT: cervical polyp. no cervical dilation. pelvic rest recommended until bleeding ceases. (2) History of gestational hypertension: COMMENT: IOL previous , baby asa. (3) Supervision of high-risk : COMMENT: , JANNETH 01/08/25, ROHIT Zavala, Burt (4) : QUALIFIERS: Weeks of gestation: 23 weeks Qualified Code(s): Z3A.23 - 23 weeks gestation of COMMENT: nl anatomy, had NIPT [id number] Core negative results PLAN: Plan Patient presents for triage evaluation secondary to vaginal bleeding. sterile speculum inserted to expose 1.5 cm cervical polyp at 5oclock of cervix. no active bleeding noted. FHT: Moderate variability reactive no decelerations category I tracing Gypsy: no Contractions Assessment and plan: Reactive NST, reassuring maternal and status patient discharged to home to follow-up in office. bleeding precautions provided. See problem list details for additional plan information. Charges/Coding Visit Charges Office Visits / Consults: 75043 OV L3 Est 20min
[2024-10-07 20:44] VITALS: BP 136/82; PULSE 79
[2024-10-07 21:01] VITALS: BP 141/86; PULSE 80
[2024-10-07 21:17] VITALS: BP 142/85; PULSE 83
== END 2024-10-07 21:50 | disposition home or self-care (01) ==
LOC: WPOUT 19:43 → WP 19:43
PROVIDERS: Referring Provider Registered Nurse; Visit Provider Registered Nurse
DX: O46.92 Antepartum hemorrhage, unspecified, second trimester (principal); Z3A.26 26 weeks gestation of pregnancy
CPT/HCPCS: 59025; 59050; 99221; G0378

== ENCOUNTER → 2024-10-13 | Outpatient (CLI) | payer MEDICAID, SELFPAY ==
[2024-10-13 10:20] LABS: Absolute Neutrophil Count 7.8 X10^3/uL (2.0-7.7); Basophil# 0.05 X10^3/uL; Basophil% 0.5 % (0-1); Hematocrit 36.3 % (37-47); Hemoglobin 12.5 g/dL (12.0-15.0); Lymphocyte % 10.6 % (19-41); Mean Corp Hgb Conc 34.4 g/dL (32-36); Mean Corpuscular Hgb 32.3 pg (27.0-32.0); Mean Corpuscular Volume 93.8 fL (81-99); Mean Platelet Vol. 8.8 fl (6.2-12.0); Monocyte# 0.55 X10^3/uL; Monocyte% 5.8 % (0-10); NRBC Flagged by Analyzer 0 % (0-5); Neutrophil # 7.78 X10^3/uL (2.7-7.7); Neutrophil % 82.6 % (47-70); Platelet Count 248 K/mm3 (150-450); RBC Distribution Width CV 13.2 % (11.6-14.6); RBC Distribution Width SD 44.7 fl (35.1-43.9); Red Blood Count 3.87 M/mm3 (4.2-5.4); White Blood Count 9.4 K/mm3 (4.4-11.0)
[2024-10-13 10:51] LABS: Glucose Challenge Gest 1H 50g 161 mg/dL (70-140)
[2024-10-13 11:18] LABS: HIV - WCH Non-Reactive (Nonreactive); Syphilis Antibodies Non-reactive
== END | disposition home or self-care (01) ==
LOC: BWCLAB 09:44
PROVIDERS: Referring Provider Advanced Practice Midwife; Visit Provider Advanced Practice Midwife
DX: O09.90 Supervision of high risk pregnancy, unspecified, unspecified trimester (principal); Z3A.00 Weeks of gestation of pregnancy not specified; Z13.1 Encounter for screening for diabetes mellitus
CPT/HCPCS: 36415; 82950; 85025; 86703; 86780

== ENCOUNTER → 2024-11-04 | Outpatient (CLI) | payer MEDICAID, SELFPAY ==
[2024-11-04 12:15] LABS: Protein, Urine (Random) 15.6 mg/dL (<11.9); Protein:Creat Ratio 205 mg/g CRE (0-200)
[2024-11-04 12:21] LABS: Absolute Lymphocyte Count 1.15 X10^3/uL (0.83-4.51); Absolute Neutrophil Count 7.3 X10^3/uL (2.0-7.7); Basophil# 0.03 X10^3/uL; Basophil% 0.3 % (0-1); Hematocrit 37.3 % (37-47); Hemoglobin 12.3 g/dL (12.0-15.0); Lymphocyte # 1.15 X10^3/ul (0.83-4.51); Lymphocyte % 12.4 % (19-41); Mean Corpuscular Hgb 31.3 pg (27.0-32.0); Mean Corpuscular Volume 94.9 fL (81-99); Mean Platelet Vol. 8.6 fl (6.2-12.0); Monocyte# 0.68 X10^3/uL; Monocyte% 7.4 % (0-10); NRBC Flagged by Analyzer 0 % (0-5); Neutrophil # 7.33 X10^3/uL (2.7-7.7); Neutrophil % 79.4 % (47-70); Platelet Count 246 K/mm3 (150-450); RBC Distribution Width CV 13.1 % (11.6-14.6); RBC Distribution Width SD 45.3 fl (35.1-43.9); Red Blood Count 3.93 M/mm3 (4.2-5.4); White Blood Count 9.2 K/mm3 (4.4-11.0)
[2024-11-04 12:52] LABS: ALB/GLOB Ratio 0.8 RATIO (0.9-2.4); AST(SGOT) 13 U/L (15-37); Alanine Aminotransfer ALT/SGPT 20 U/L (13-56); Albumin, Serum 2.8 g/dL (3.2-5.0); Alkaline Phosphatase 57 U/L (45-117); Anion Gap 4 (5-15); BUN 10 mg/dL (7-18); BUN/Creat Ratio 19.9 RATIO (10-20); Calcium,Total 8.8 mg/dL (8.5-10.1); Chloride 108 mmol/L (98-107); EST Glomerular Filtration Rate 147 mL/min (>60); Est Glom Filt Rate - Afr Amer 178 mL/min (>60); Globulin 3.7 g/dL (2.2-4.2); Glucose 125 mg/dL (74-106); Potassium 3.6 mmol/L (3.5-5.1); Protein, Total 6.5 g/dL (6.4-8.2); Sodium Level 137 mmol/L (136-145)
== END | disposition home or self-care (01) ==
LOC: BWCLAB 11:47
PROVIDERS: PCP Internal Medicine; Referring Provider Obstetrics & Gynecology; Visit Provider Obstetrics & Gynecology
DX: Z87.59 Personal history of other complications of pregnancy, childbirth and the puerperium (principal)
CPT/HCPCS: 36415; 80053; 82570; 84156; 85025

== ENCOUNTER → 2024-11-10 | Outpatient (CLI) | payer MEDICAID, SELFPAY | END | disposition home or self-care (01) | PROVIDERS: PCP Internal Medicine; Referring Provider Internal Medicine; Visit Provider Internal Medicine | DX: F90.9 Attention-deficit hyperactivity disorder, unspecified type (principal) ==

== ENCOUNTER 2024-11-12 14:30 | Outpatient (CLI) | payer MEDICAID, SELFPAY ==
--- NOTE | 2024-11-12 14:36 | US_ITS ---
EXAM: US BIOPHYSICAL PROFILE WITHOUT NON-STRESS TESTING CLINICAL INDICATION: variables TECHNIQUE: Real-time ultrasound of the maternal pelvis for biophysical profile evaluation with image documentation. COMPARISON: No relevant prior studies available. FINDINGS: BREATHING MOVEMENTS: Present. Score 2/2. GROSS BODY MOVEMENTS: Present. Score 2/2. TONE: Present. Score 2/2. QUALITATIVE AMNIOTIC FLUID VOLUME: Within normal limits. Score 2/2. CAMILLE: 8.4 cm. FETUS: Single live intrauterine . HEART RATE: heart rate: 135 bpm. PRESENTATION: Cephalic presentation. PLACENTA: Placenta is anterior with no previa or other abnormality. US/Biophysical Prof W/O Non Stres IMPRESSION: No acute findings. Normal biophysical profile with score of 8/8. Electronically Signed: Hubert Pool MD at 23:41 EST ,
[2024-11-12 14:46] VITALS: BP 137/95; PULSE 108
[2024-11-12 14:47] VITALS: BP 127/80; PULSE 110; BMI 35.7
--- NOTE | 2024-11-12 17:45 | OB.TRI.HP_ITS ---
HPI - General HPI Narrative ABENA GREEN, is a 34 y/o at 32 weeks who presents to L&D for monitoring and a BPP due to variable appearing decelerations during NST in the office. Maternal Data Information JANNETH Calculator Estimated Delivery Date Method Current WG Current Estimate 01/08/25 LMP (Certain) 32w 0d PFSH PFSH Medical History Lumbar herniated disc MTHFR gene mutation FH: breast cancer in first degree relative Seasonal allergies Pain management SVT (supraventricular tachycardia) Lyme disease Depression Anxiety Hypertension (spontaneous vaginal delivery) 39 weeks gestation of Home Medications ?Medication ?Instructions ?Recorded ?Last Taken ?Type aspirin 81 mg chewable tablet 81 mg PO QHS 08/14/24 11/11/24 21:00 History 81 mg multivitamin no.47-iron fum 27 1 cap PO DAILY 08/14/24 11/12/24 12:00 History mg-folate no.1 1 mg-dha 300 mg 1 cap capsule (PNV-DHA) metformin 500 mg tablet 500 mg PO QDAY #30 tabs 11/04/24 11/11/24 19:00 Rx 500 mg desvenlafaxine succinate 50 mg 50 mg PO QDAY #90 tabs 11/10/24 11/12/24 11:30 Rx tablet,extended release 24 hr 50 mg (Pristiq) diphenhydramine HCl 25 mg capsule 12.5 mg PO QHS Insomnia 11/10/24 11/11/24 21:00 History 12.5 mg lisdexamfetamine 70 mg capsule 70 mg PO DAILY Check with primary 11/10/24 11/12/24 06:00 Rx doctor 30 days #30 caps 70 mg naltrexone 4.5 mg capsule 4.5 mg PO DAILY inflamation #30 11/10/24 11/12/24 1 1:30 Rx caps 4.5 mg Allergy/AdvReac Type Severity Reaction Status Date / Time adhesive tape (adhesives - Allergy Mild Other Verified 11/12/24 14:50 tape) Family History Father Myocardial infarction 4-5 [place] CAD (coronary artery disease) Diabetes Hypertension Grandmother Diabetes Paternal Myocardial infarction, Onset Age: 30 Grandfather Cancer Paternal unsure what kind of cancer Mother Breast cancer, Onset Age: 38 x2 Anxiety Sister Anxiety Surgical History History of endometrial biopsy [place] teeth extracted Social History adopted: No household members: spouse and children number of children: 1 current occupational status: unemployed current occupation: [employer] current occupational exposures/hazards: No pets and animals: Yes (Avoid litter box) pets and animals: cat(s), dog(s) and other details: mini horses history of recent travel: No sexually active: Yes Smoking Status: Former smoker quit date: 11/25/19 Tobacco: How many years used: 10 how long ago did patient quit smokin alcohol intake: current alcohol intake frequency: holidays/special occasions only details: not while substance use type: does not use diet: low carbohydrate well-balanced diet: daily or most days caffeine: Yes (minimal amount) Type: coffee Number of servings: 1 eating out: rarely or never what type of physical activity do you participate in: none chirag/restorationism: None seatbelt use: always do you feel safe at home: Yes additional social history: [employer] History 3 Elective abortions 1 Hx Para 1 Spontaneous abortions Hx # Term Pregnancies Ectopic pregnancies Hx # Pregnancies Multiple births # of living children 1 Past Pregnancies Del. Date Name GA/Weeks Outcome Route Bth Weight Gen Labor Lgth Anesthesia Del Locatn Provider FOB 03/06/12 6 elective 10/14/20 [place] 39 live - full term 7#11oz [facility] Delivery Date: 10/14/20 Last Updated by: Itzel Marti IOL, gestational HTN Visit Details Expected Delivery Route/Plan Labor Preferences- CB/BF classes: no labor support person: JAVIER labor intervention preferences: [] pain management options preferred: limited cut cord/dad catch: yes : yes PP control planned: discussed discussed possible routes of delivery and associated risks: [] special requests: [] Plans Covid status: [] Flu vaccine: declines Tdap vaccine: [] Rhogam: na LARC form signed: yes Problem list reviewed and updated with the most current plan of care details and appropriate orders placed. Relevant counseling for the gestational age provided. Continue routine care and follow up unless otherwise noted in visit notes/problem list details OB Flowsheet Initial Weight: 190 lb Date -?-?-?-?-?-?-?-?-?-?-?-?- EGA Weight BP Urine Prot -?-?-?-?-?-?-?-?-?-?-?-?- Glucose FHR FuHt Pres Dilation -?-?-?-?-?-?-?-?-?-?-?-?- Effaced St Visit Note 08/18/24 -?-?-?-?-?-?-?-?-?-?-?-?- 19w 4d 203 lb (+13 lb) 139/93 -?-?-?-?-?-?-?--?-?-?-?-?- 150 -?-?-?-?-?-?-?-?-?-?-?-?- Sm- ZACHARY from [facility] specialist no vb cramping 09/15/24 -?-?-?-?-?-?-?-?-?-?-?-?- 23w 4d 208 lb (+18 lb) 137/94 124/86 Negative -?-?-?-?-?-?-?-?-?-?-?-?- Negative 135 -?-?-?-?-?-?-?-?-?-?-?-?- KW- no vb/lof/ct xRadha wilson fm. discussed 28 week labs 10/13/24 -?-?-?-?-?-?-?-?-?-?-?-?- 27w 4d 215 lb 2 oz (+25 lb 2 oz) 124/82 Negative -?-?-?-?-?-?-?-?-?-?-?-?- Negative 154 28 -?-?-?-?-?-?-?-?-?-?-?-?- MH-No VB, LOF. G ood FM. 28 wk labs pending. Larc. Krystian tdap. 11/04/24 -?-?-?-?-?-?-?-?-?-?-?-?- 30w 5d 219 lb 8 oz (+29 lb 8 oz) 140/93 Trace -?-?-?-?-?-?-?-?-?-?-?-?- 100 g/dL 138 31 -?-?-?-?-?-?-?-?-?-?-?-?- JV- fasting gluc ose levels all elevated. bp high today but normal at home. Start metformin, twice weekly testing, and PIH labs today. 11/09/24 -?-?-?-?-?-?-?-?-?-?-?-?- 31w 3d 219 lb 6 oz (+29 lb 6 oz) 130/80 Negative -?-?-?-?-?-?-?-?-?-?-?-?- Negative 135 -?-?-?-?-?-?-?-?-?-?-?-?- KW-NST only. jesusita ctive. US ordered for 32 +36 weeks. started metformin and numbers starting to improve. will bring log to next NST to see if metformin needs increased. 11/12/24 -?-?-?-?-?-?-?-?-?-?-?-?- 31w 6d 221 lb (+31 lb) 136/89 -?-?-?-?-?-?-?-?-?-?-?-?- 160 -?-?-?-?-?-?-?-?-?-?-?-?- KW- no vb/lof/ct x. NST shows tachycardia with variables vs prolonged accelerations. to WP for BPP. fasting BS are 94-96 over the last week. Discussed with JV. agree to increase metformin to 1000 at HS ROS Constitutional Constitutional: Reports systems reviewed and no addt'l complaints, except as documented Gastrointestinal Gastrointestinal: Denies bloating, constipation, cramping, diarrhea, nausea or vomiting Genitourinary Genitourinary: Reports other Details: Denies vaginal odor, vaginal bleeding, or vaginal discharge ; Denies difficulty urinating or flank pain NST FHR Rate Baby A Baseline: 120 Variability:: Moderate Accelerations:: 15 x 15 Decelerations:: None NST Reactive:: Yes and Appropriate for gestational age FHR Category:: Category I Assessment & Plan (1) Gestational diabetes: QUALIFIERS: Gestational diabetes mellitus control: oral hypoglycemic-controlled Trimester: third trimester Qualified Code(s): O24.415 - Gestational diabetes mellitus in , controlled by oral hypoglycemic drugs COMMENT: on metformin twice weekly nsts and growth scan at 36 weeks, deliver 39 weeks (latest) (2) Abnormal glucose affecting : COMMENT: needs 3 hour (3) Vaginal bleeding during : COMMENT: cervical polyp. no cervical dilation. pelvic rest recommended until bleeding ceases. None since 10/11. (4) AMA (advanced maternal age) multigravida 35+: QUALIFIERS: Trimester: second trimester Qualified Code(s): O09.522 - Supervision of elderly multigravida, second trimester COMMENT: plan delivery by 39, growth US at 36 weeks. 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 (6) History of gestational hypertension: COMMENT: IOL previous , baby asa. (7) Supervision of high-risk : QUALIFIERS: Trimester: second trimester Qualified Code(s): O09.92 - Supervision of high risk , unspecified, second trimester COMMENT: PRR(outside records), JANNETH 01/08/25, PC Lucas, Brut (8) : QUALIFIERS: Weeks of gestation: 31 weeks Qualified Code(s): Z3A.31 - 31 weeks gestation of COMMENT: nl anatomy, had NIPT [id number] Core negative results PLAN: Plan NST reactive without decelerations and BPP 07/02 ok to dc to home Charges/Coding Multi Select Codes Urinary/Genital Urinary/Genital CPT Codes: 85622-40 non-stress test Interp
== END 2024-11-12 16:26 | disposition home or self-care (01) ==
LOC: WPOUT 14:33 → WP 14:33
PROVIDERS: PCP Internal Medicine; Referring Provider Obstetrics & Gynecology; Visit Provider Obstetrics & Gynecology
DX: O76 Abnormality in fetal heart rate and rhythm complicating labor and delivery (principal); O24.415 Gestational diabetes mellitus in pregnancy, controlled by oral hypoglycemic drugs; Z3A.32 32 weeks gestation of pregnancy; N96 Recurrent pregnancy loss; Z87.891 Personal history of nicotine dependence; Z80.3 Family history of malignant neoplasm of breast
CPT/HCPCS: 59025; 59050; 76819; 99221; G0378

== ENCOUNTER → 2024-11-13 | Outpatient (CLI) | payer MEDICAID, SELFPAY ==
--- NOTE | 2024-11-13 15:28 | US_ITS ---
EXAM: US SECOND OR THIRD TRIMESTER , TRANSABDOMINAL CLINICAL INDICATION: growth -- 32 Weeks TECHNIQUE: Transabdominal obstetrical ultrasound of the maternal pelvis and a second or third trimester with image documentation. COMPARISON: November 12, 2024 biophysical profile. FINDINGS: FETUS: HEART RATE: 162 bpm. PRESENTATION: Cephalic. PLACENTA: Anterior. Grade 1. No placenta previa. No abruption. AMNIOTIC FLUID: Unremarkable. 4 quadrant CAMILLE 10.3 cm, maximum vertical pocket 5.3 cm. ANATOMY: profile, stomach, nose--lips on 3-D. Full survey was not performed. BIOMETRICS GESTATIONAL AGE: 32 weeks 2 days. JANNETH: January 06, 2024. EFW: 1861 g +/- 279 g. 36 percentile. BPD: 31 weeks 4 days. HC: 33 weeks 1 day. AC: 32 weeks 2 days. FL: 31 weeks 1 day. MATERNAL: UTERUS: Unremarkable. No myometrial mass. CERVIX: Not seen. ADNEXA: Not seen. FREE FLUID: None. US/OB Limited With Biometrics IMPRESSION: Single live intrauterine . Cephalic. Symmetric measurements. No acute abnormality. Electronically Signed: Kristina Stewart MD at 2:05 EST ,
== END | disposition home or self-care (01) ==
LOC: US 15:26
PROVIDERS: PCP Internal Medicine; Referring Provider Advanced Practice Midwife; Visit Provider Advanced Practice Midwife
DX: O24.419 Gestational diabetes mellitus in pregnancy, unspecified control (principal); Z3A.32 32 weeks gestation of pregnancy
CPT/HCPCS: 76816

== ENCOUNTER → 2024-11-20 | Outpatient (CLI) | payer MEDICAID, SELFPAY ==
[2024-11-20 09:57] LABS: Absolute Lymphocyte Count 1.33 X10^3/uL (0.83-4.51); Absolute Neutrophil Count 9.3 X10^3/uL (2.0-7.7); Basophil# 0.04 X10^3/uL; Basophil% 0.3 % (0-1); Hematocrit 36.5 % (37-47); Hemoglobin 12.3 g/dL (12.0-15.0); Lymphocyte # 1.33 X10^3/ul (0.83-4.51); Lymphocyte % 11.5 % (19-41); Mean Corp Hgb Conc 33.7 g/dL (32-36); Mean Corpuscular Hgb 31.6 pg (27.0-32.0); Mean Corpuscular Volume 93.8 fL (81-99); Mean Platelet Vol. 8.4 fl (6.2-12.0); Monocyte# 0.84 X10^3/uL; Monocyte% 7.3 % (0-10); NRBC Flagged by Analyzer 0 % (0-5); Neutrophil # 9.28 X10^3/uL (2.7-7.7); Neutrophil % 80.2 % (47-70); Platelet Count 235 K/mm3 (150-450); RBC Distribution Width CV 12.9 % (11.6-14.6); RBC Distribution Width SD 43.9 fl (35.1-43.9); Red Blood Count 3.89 M/mm3 (4.2-5.4); White Blood Count 11.6 K/mm3 (4.4-11.0)
[2024-11-20 10:13] LABS: ALB/GLOB Ratio 0.8 RATIO (0.9-2.4); AST(SGOT) 13 U/L (15-37); Alanine Aminotransfer ALT/SGPT 29 U/L (13-56); Albumin, Serum 2.8 g/dL (3.2-5.0); Alkaline Phosphatase 69 U/L (45-117); Anion Gap 5 (5-15); BUN 11 mg/dL (7-18); BUN/Creat Ratio 21.3 RATIO (10-20); Calcium,Total 8.7 mg/dL (8.5-10.1); Chloride 106 mmol/L (98-107); Creatinine, Serum 0.52 mg/dL (0.55-1.02); EST Glomerular Filtration Rate 143 mL/min (>60); Est Glom Filt Rate - Afr Amer 172 mL/min (>60); Globulin 3.6 g/dL (2.2-4.2); Glucose 93 mg/dL (74-106); Potassium 3.6 mmol/L (3.5-5.1); Protein, Total 6.4 g/dL (6.4-8.2); Sodium Level 136 mmol/L (136-145)
[2024-11-20 10:18] LABS: Creatinine, Urine (random) < 13.00 mg/dL (NO RANGE EST.); Protein, Urine (Random) < 6.0 mg/dL (<11.9)
== END | disposition home or self-care (01) ==
LOC: BWCLAB 09:44
PROVIDERS: PCP Internal Medicine; Referring Provider Nurse Practitioner Women's Health; Visit Provider Nurse Practitioner Women's Health
DX: O16.9 Unspecified maternal hypertension, unspecified trimester (principal); Z3A.00 Weeks of gestation of pregnancy not specified
CPT/HCPCS: 36415; 80053; 82570; 84156; 85025

== ENCOUNTER → 2024-12-07 | Outpatient (CLI) | payer MEDICAID, SELFPAY ==
[2024-12-07 17:20] LABS: ALB/GLOB Ratio 0.7 RATIO (0.9-2.4); AST(SGOT) 21 U/L (15-37); Alanine Aminotransfer ALT/SGPT 45 U/L (13-56); Albumin, Serum 2.6 g/dL (3.2-5.0); Alkaline Phosphatase 82 U/L (45-117); Anion Gap 6 (5-15); BUN 8 mg/dL (7-18); BUN/Creat Ratio 14.9 RATIO (10-20); Calcium,Total 8.5 mg/dL (8.5-10.1); Chloride 108 mmol/L (98-107); Creatinine, Serum 0.54 mg/dL (0.55-1.02); EST Glomerular Filtration Rate 136 mL/min (>60); Est Glom Filt Rate - Afr Amer 165 mL/min (>60); Globulin 3.7 g/dL (2.2-4.2); Glucose 104 mg/dL (74-106); Potassium 3.3 mmol/L (3.5-5.1); Protein, Total 6.3 g/dL (6.4-8.2); Sodium Level 136 mmol/L (136-145); Uric Acid 3.6 mg/dL (2.6-6.0)
[2024-12-07 17:22] LABS: Absolute Lymphocyte Count 1.52 X10^3/uL (0.83-4.51); Absolute Neutrophil Count 9.3 X10^3/uL (2.0-7.7); Basophil# 0.05 X10^3/uL; Basophil% 0.4 % (0-1); Hematocrit 33.7 % (37-47); Hemoglobin 11.5 g/dL (12.0-15.0); Lymphocyte # 1.52 X10^3/ul (0.83-4.51); Lymphocyte % 12.7 % (19-41); Mean Corp Hgb Conc 34.1 g/dL (32-36); Mean Corpuscular Hgb 31.3 pg (27.0-32.0); Mean Corpuscular Volume 91.6 fL (81-99); Monocyte# 0.98 X10^3/uL; Monocyte% 8.2 % (0-10); NRBC Flagged by Analyzer 0 % (0-5); Neutrophil # 9.33 X10^3/uL (2.7-7.7); Neutrophil % 77.8 % (47-70); Platelet Count 229 K/mm3 (150-450); RBC Distribution Width CV 12.7 % (11.6-14.6); Red Blood Count 3.68 M/mm3 (4.2-5.4)
[2024-12-07 17:23] LABS: Creatinine, Urine (random) < 13.00 mg/dL (NO RANGE EST.); Protein, Urine (Random) < 6.0 mg/dL (<11.9)
== END | disposition home or self-care (01) ==
LOC: BWCLAB 14:37
PROVIDERS: PCP Internal Medicine; Referring Provider Advanced Practice Midwife; Visit Provider Advanced Practice Midwife
DX: O24.415 Gestational diabetes mellitus in pregnancy, controlled by oral hypoglycemic drugs (principal); Z3A.00 Weeks of gestation of pregnancy not specified

== ENCOUNTER 2024-12-10 09:55 | Outpatient (CLI) | payer MEDICAID, SELFPAY ==
[2024-12-10] VITALS (8 sets, daily range): BP systolic 135–149; BP diastolic 78–96; PULSE 8–106; RESP 15; TEMP 36.8; O2SAT 85–100
--- NOTE | 2024-12-10 10:12 | US_ITS ---
EXAM: US BIOPHYSICAL PROFILE WITHOUT NON-STRESS TESTING CLINICAL INDICATION: decreased movement TECHNIQUE: Real-time ultrasound of the maternal pelvis for biophysical profile evaluation with image documentation. COMPARISON: No relevant prior studies available. FINDINGS: BREATHING MOVEMENTS: Present. Score 2/2. GROSS BODY MOVEMENTS: Present. Score 2/2. TONE: Present. Score 2/2. QUALITATIVE AMNIOTIC FLUID VOLUME: Amniotic fluid index is 13.9 cm. FETUS: Single live intrauterine gestation in transverse lie and variable presentation. HEART RATE: cardiac rate is 137 bpm. PLACENTA: Anterior placenta. US/Biophysical Prof W/O Non Stres IMPRESSION: No acute findings. Normal biophysical profile with score of 8/8. Electronically Signed: Fareed Burnett MD at 13:46 EST ,
[2024-12-10 12:09] LABS: Hematocrit 33.4 % (37-47); Hemoglobin 11.5 g/dL (12.0-15.0); Mean Corp Hgb Conc 34.4 g/dL (32-36); Mean Corpuscular Hgb 31.7 pg (27.0-32.0); Mean Platelet Vol. 8.5 fl (6.2-12.0); Platelet Count 194 K/mm3 (150-450); RBC Distribution Width CV 12.7 % (11.6-14.6); RBC Distribution Width SD 42.5 fl (35.1-43.9); Red Blood Count 3.63 M/mm3 (4.2-5.4)
[2024-12-10 12:16] LABS: Protein:Creat Ratio 278 mg/g CRE (0-200)
[2024-12-10 12:38] LABS: AST(SGOT) 15 U/L (15-37); Alanine Aminotransfer ALT/SGPT 33 U/L (13-56); Creatinine, Serum 0.48 mg/dL (0.55-1.02); EST Glomerular Filtration Rate 154 mL/min (>60); Est Glom Filt Rate - Afr Amer 186 mL/min (>60); Uric Acid 3.4 mg/dL (2.6-6.0)
--- NOTE | 2024-12-10 13:10 | OB.TRI.PN_ITS ---
Progress Notes Date of Service: 12/10/24 Progress Note: Patient presents for triage evaluation secondary to decrease movement elevated bps labs doen today FHT: 125 Moderate variability reactive no decelerations category I tracing Panther Burn: no ergluar Contractions Assessment and plan: decreased movement 35 weeks Reactive NST, reassuring maternal and status patient discharged to home to follow-up as schedlued. See problem list details for additional plan information. Laboratory Studies: Laboratory Tests 12/10/24 Range/Units 11:55 WBC 11.0 (4.4-11.0) K/mm3 RBC 3.63 L (4.2-5.4) M/mm3 Hgb 11.5 L (12.0-15.0) g/dL Hct 33.4 L (37-47) % MCV 92.0 (81-99) fL MCH 31.7 (27.0-32.0) pg MCHC 34.4 (32-36) g/dL RDW Std Deviation 42.5 (35.1-43.9) fl RDW Coeff of Ralf 12.7 (11.6-14.6) % Plt Count 194 (150-450) K/mm3 MPV 8.5 (6.2-12.0) fl Creatinine 0.48 L (0.55-1.02) mg/dL Est GFR (MDRD) Af Amer 186 (>60) mL/min Est GFR (MDRD) Non-Af 154 (>60) mL/min Uric Acid 3.4 (2.6-6.0) mg/dL AST 15 (15-37) U/L ALT 33 (13-56) U/L U Random Total Protein 8.0 (<11.9) mg/dL Urine Creatinine 28.80 (NO RANGE EST.) mg/dL Protein/Creatinin Ratio 278 H (0-200) mg/g CRE Charges/Coding Procedures Urinary/Genital 52xxx-59xxx: 09970-12 non-stress test Interp Assessment & Plan (1) : QUALIFIERS: Weeks of gestation: 35 weeks Qualified Code(s): Z3A.35 - 35 weeks gestation of COMMENT: nl anatomy, had NIPT [id number] Core negative results (2) Supervision of high-risk : QUALIFIERS: Trimester: third trimester Qualified Code(s): O09.93 - Supervision of high risk , unspecified, third trimester COMMENT: PRR(outside records), JANNETH 01/08/25, PC Lucas, Burt (3) AMA (advanced maternal age) multigravida 35+: QUALIFIERS: Trimester: third trimester Qualified Code(s): O09.523 - Supervision of elderly multigravida, third trimester COMMENT: plan delivery by 39, growth US at 36 weeks. (4) Elevated blood pressure affecting , antepartum: COMMENT: elevated BPs in the office. Pre e labs today. plan 37 week IOL (5) SVT (supraventricular tachycardia): COMMENT: occurs when laying flat and resolves immediately (6) Gestational diabetes: QUALIFIERS: Gestational diabetes mellitus control: oral hypoglycemic-controlled Trimester: third trimester Qualified Code(s): O24.415 - Gestational diabetes mellitus in , controlled by oral hypoglycemic drugs COMMENT: on metformin and lantus-8 units twice weekly nsts at 32w and growth scan Q4 weeks, deliver 37 weeks (7) Decreased movements in third trimester:
== END 2024-12-10 13:19 | disposition home or self-care (01) ==
LOC: WPOUT 10:09 → WP 10:10
PROVIDERS: Obstetrics & Gynecology; PCP Internal Medicine; Referring Provider Advanced Practice Midwife; Visit Provider Advanced Practice Midwife
DX: O36.8130 Decreased fetal movements, third trimester, not applicable or unspecified (principal); Z3A.35 35 weeks gestation of pregnancy
CPT/HCPCS: 36415; 59025; 59050; 76819; 82565; 82570; 84156; 84450; 84460; 84550; 85027; 99221; G0378

== ENCOUNTER → 2024-12-14 | Outpatient (CLI) | payer MEDICAID, SELFPAY ==
--- NOTE | 2024-12-14 09:57 | US_ITS ---
STUDY: SECOND AND THIRD TRIMESTER OBSTETRICAL ULTRASOUND - LIMITED REASON FOR EXAM: Female, 34 years old growth -- 36 Weeks LMP: April 03, 2024. PRIOR ULTRASOUND: Comparison is made with prior study dated December 10, 2024. TECHNIQUE: Transabdominal TECHNICAL QUALITY: Adequate. FINDINGS: There is a single intrauterine fetus. The fetus is in a cephalic presentation. There is demonstrated cardiac activity with a heart rate of 137 bpm. There is a normal amniotic fluid volume. The largest amniotic fluid pocket measures 5. cm. The amniotic fluid index (CAMILLE) is 12.1 cm. The placenta is anterior in location and is not low lying. There are Grade 2 placental changes. BIOMETRY: BPD: 8.7 cm: 35 weeks, 1 days: 25% HC: 33.46 cm: 36 weeks, 5 days: 28% AC: 33.32 cm: 37 weeks, 2 days: 82% FL: 7.01 cm: 35 weeks, 6 days: 34% Age by LMP: 37 weeks, 3 days. JANNETH by LMP: January 08, 2025. age by current US: 36 weeks, 2 days. JANNETH by current US: January 09, 2025. Estimated weight: 2993 grams, +/- 449 grams, 59 percentile. US/OB Limited With Biometrics IMPRESSION: Single live intrauterine gestation with a mean gestational age of 36 weeks and 2 days. Electronically Signed: Kunal Rivas MD at 15:14 EST ,
== END | disposition home or self-care (01) ==
LOC: US 09:57
PROVIDERS: PCP Internal Medicine; Referring Provider Advanced Practice Midwife; Visit Provider Advanced Practice Midwife
DX: O24.419 Gestational diabetes mellitus in pregnancy, unspecified control (principal); Z3A.36 36 weeks gestation of pregnancy
CPT/HCPCS: 76816

== ENCOUNTER → 2024-12-14 | Outpatient (CLI) | payer MEDICAID, SELFPAY | END | disposition home or self-care (01) | PROVIDERS: PCP Internal Medicine; Referring Provider Obstetrics & Gynecology; Visit Provider Obstetrics & Gynecology | DX: O24.415 Gestational diabetes mellitus in pregnancy, controlled by oral hypoglycemic drugs (principal); Z3A.00 Weeks of gestation of pregnancy not specified | CPT/HCPCS: 87081 ==

== ENCOUNTER 2024-12-20 19:28 | Observation (INO) | payer MEDICAID, SELFPAY ==
[2024-12-20] VITALS (15 sets, daily range): BP systolic 129; BP diastolic 72; PULSE 90–119; RESP 16; TEMP 36.6; O2SAT 97–100; BMI 37.8
[2024-12-20 20:59] LABS: Absolute Lymphocyte Count 1.69 X10^3/uL (0.83-4.51); Absolute Neutrophil Count 7.6 X10^3/uL (2.0-7.7); Basophil# 0.05 X10^3/uL; Basophil% 0.5 % (0-1); Hematocrit 32.5 % (37-47); Hemoglobin 11.1 g/dL (12.0-15.0); Lymphocyte # 1.69 X10^3/ul (0.83-4.51); Mean Corp Hgb Conc 34.2 g/dL (32-36); Mean Corpuscular Hgb 31.3 pg (27.0-32.0); Mean Corpuscular Volume 91.5 fL (81-99); Mean Platelet Vol. 8.7 fl (6.2-12.0); Monocyte# 1.11 X10^3/uL; Monocyte% 10.5 % (0-10); NRBC Flagged by Analyzer 0 % (0-5); Neutrophil # 7.63 X10^3/uL (2.7-7.7); Neutrophil % 72.3 % (47-70); Platelet Count 259 K/mm3 (150-450); RBC Distribution Width CV 12.5 % (11.6-14.6); RBC Distribution Width SD 41.7 fl (35.1-43.9); Red Blood Count 3.55 M/mm3 (4.2-5.4); White Blood Count 10.6 K/mm3 (4.4-11.0)
--- NOTE | 2024-12-20 21:13 | HP.PCM.OB_ITS ---
HPI - General General Date of Admission: 12/20/24 HPI Narrative ABENA GREEN, is a 34 F who presents at 37.2 for IOL for gestational hypertension, insulin and metformin dependent GDM. GBS negative Maternal Data Information JANNETH Calculator Estimated Delivery Date Method Current WG Current Estimate 01/08/25 LMP (Certain) 37w 2d PFSH PFS Medical History (Updated 12/20/24 @ 21:17 by Sylvia Sutton CNM) Depression Anxiety Gestational HTN Gestational diabetes Lumbar herniated disc MTHFR gene mutation FH: breast cancer in first degree relative Seasonal allergies Pain management SVT (supraventricular tachycardia) Lyme disease Depression Anxiety Hypertension (spontaneous vaginal delivery) 39 weeks gestation of Home Medications ?Medication ?Instructions ?Recorded ?Last Taken ?Type aspirin 81 mg chewable tablet 81 mg PO QHS 08/14/24 12/20/24 18:00 History multivitamin no.47-iron fum 27 1 cap PO DAILY 08/14/24 12/20/24 12:30 History mg-folate no.1 1 mg-dha 300 mg capsule (PNV-DHA) desvenlafaxine succinate 50 mg 50 mg PO QDAY depression #90 tabs 11/10/24 12/19/24 23:30 Rx tablet,extended release 24 hr (Pristiq) diphenhydramine HCl 25 mg capsule 12.5 mg PO QHS Insomnia 11/10/24 12/20/24 11:30 History metformin 500 mg tablet 1,000 mg (2 x 500 mg) PO QDAY GDM 11/20/24 12/20/24 17:30 Rx #60 tabs omeprazole 20 mg tablet,delayed 20 mg PO QDAY heartburn 11/30/24 12/20/24 08:00 History release insulin glargine 100 unit/mL (3 8 unit (0.08 mL) subcut QPM GDM 12/07/24 12/20/24 06:30 Rx mL) subcutaneous pen (Lantus #15 mL Solostar U-100 Insulin) lisdexamfetamine 70 mg capsule 70 mg PO DAILY Check with primary 12/14/24 12/20/24 04:00 Rx doctor 30 days #30 caps Allergy/AdvReac Type Severity Reaction Status Date / Time adhesive tape (adhesives - Allergy Mild Other Verified 12/20/24 19:50 tape) Family History Father Myocardial infarction 4-5 [place] CAD (coronary artery disease) Diabetes Hypertension Grandmother Diabetes Paternal Myocardial infarction, Onset Age: 30 Grandfather Cancer Paternal unsure what kind of cancer Mother Breast cancer, Onset Age: 38 x2 Anxiety Sister Anxiety Surgical History History of endometrial biopsy [place] teeth extracted Social History adopted: No household members: spouse and children number of children: 1 current occupational status: unemployed current occupation: [employer] current occupational exposures/hazards: No pets and animals: Yes (Avoid litter box) pets and animals: cat(s), dog(s) and other details: mini horses history of recent travel: No sexually active: Yes Smoking Status: Former smoker quit date: 11/25/19 Tobacco: How many years used: 10 how long ago did patient quit smokin alcohol intake: current alcohol intake frequency: holidays/special occasions only details: not while substance use type: does not use diet: low carbohydrate well-balanced diet: daily or most days caffeine: Yes (minimal amount) Type: coffee Number of servings: 1 eating out: rarely or never what type of physical activity do you participate in: none chirag/caodaism: None seatbelt use: always do you feel safe at home: Yes additional social history: [employer] History 3 Elective abortions 1 Hx Para 1 Spontaneous abortions Hx # Term Pregnancies Ectopic pregnancies Hx # Pregnancies Multiple births # of living children 1 Past Pregnancies Del. Date Name GA/Weeks Outcome Route Bth Weight Infant Gen Labor Lgth Anesthesia Del Locatn Provider FOB 03/06/12 6 elective 10/14/20 Zavala 39 live - full term 7#11oz Male none [facility] Bertha Burt Delivery Date: 10/14/20 Last Updated by: Itzel Marti IOL, gestational HTN Visit Details Expected Delivery Route/Plan Labor Preferences- CB/BF classes: no labor support person: JAVIER labor intervention preferences: [] pain management options preferred: limited cut cord/dad catch: yes : yes PP control planned: discussed discussed possible routes of delivery and associated risks: [] special requests: [] Plans Covid status: [] Flu vaccine: declines Tdap vaccine: [] Rhogam: na LARC form signed: yes Problem list reviewed and updated with the most current plan of care details and appropriate orders placed. Relevant counseling for the gestational age provided. Continue routine care and follow up unless otherwise noted in visit notes/problem list details OB Flowsheet Initial Weight: 190 lb Date -?-?-?-?-?-?-?-?-?-?-?-?- EGA Weight BP Urine Prot -?-?-?-?-?-?-?-?-?-?-?-?- Glucose FHR FuHt Pres Dilation -?-?-?-?-?-?-?-?-?-?-?-?- Effaced St Visit Note 08/18/24 -?-?-?--?-?-?-?-?-?-?-?-?- 19w 4d 203 lb (+13 lb) 139/93 -?-?-?-?-?-?-?-?-?-?-?-?- 150 -?-?-?-?-?-?-?-?-?-?-?-?- Sm- ZACHARY from [facility] specialist no vb cramping 09/15/24 -?-?-?-?-?-?-?-?-?-?-?-?- 23w 4d 208 lb (+18 lb) 137/94 124/86 Negative -?-?-?-?-?-?-?-?-?-?-?-?- Negative 135 -?-?-?-?-?-?-?-?-?-?-?-?- KW- no vb/lof/ct x. good fm. discussed 28 week labs 10/13/24 -?-?-?-?-?-?-?-?-?-?-?-?- 27w 4d 215 lb 2 oz (+25 lb 2 oz) 124/82 Negative -?-?-?-?-?-?-?-?-?-?-?-?- Negative 154 28 -?-?-?-?-?-?-?-?-?-?-?-?- MH-No VB, LOF. G ood FM. 28 wk labs pending. Ramirezc. Declines tdap. 11/04/24 -?-?-?-?-?-?-?-?-?-?-?-?- 30w 5d 219 lb 8 oz (+29 lb 8 oz) 140/93 Trace -?--?-?-?-?-?-?-?-?-?-?-?- 100 g/dL 138 31 -?-?-?-?-?-?-?-?-?-?-?-?- JV- fasting gluc ose levels all elevated. bp high today but normal at home. Start metformin, twice weekly testing, and PIH labs today. 11/09/24 -?-?-?-?-?-?-?-?-?-?-?-?- 31w 3d 219 lb 6 oz (+29 lb 6 oz) 130/80 Negative -?-?-?-?-?-?-?-?-?-?-?-?- Negative 135 -?-?-?-?-?-?-?-?-?-?-?-?- KW-NST only. jesusita ctive. US ordered for 32 +36 weeks. started metformin and numbers starting to improve. will bring log to next NST to see if metformin needs increased. 11/12/24 -?-?-?-?-?-?-?-?-?-?-?-?- 31w 6d 221 lb (+31 lb) 136/89 Negative -?-?-?-?-?-?-?--?-?-?-?-?- Negative 160 -?-?-?-?-?-?-?-?-?-?-?-?- KW- no vb/lof/ct x. NST shows tachycardia with variables vs prolonged accelerations. to WP for BPP. fasting BS are 94-96 over the last week. Discussed with JV. agree to increase metformin to 1000 at HS 11/17/24 -?-?-?-?-?-?-?-?-?-?-?-?- 32w 4d 220 lb (+30 lb) 127/86 Negative -?-?-?-?-?-?-?-?-?-?-?-?- Negative 130 33 -?-?-?-?-?-?-?-?-?-?-?-?- SM- no vb lof go od fm n oregular ctx. BS reviewed. 11/20/24 -?-?-?-?-?-?-?-?-?-?-?-?- 33w 0d 223 lb (+33 lb) 140/90 Negative -?-?-?-?-?-?-?-?-?-?-?-?- Negative 130 -?-?--?-?-?-?-?-?-?-?-?-?- MH-No VB, LOF. R eactive NST. good fm. Pre E labs. Pt tachy with laying down 122. Resolved when upright. Denies headache, vision changes MH-No VB, LOF. Reactive NST. good fm. Pre E labs. Pt tachy with laying down 122. Resolved when upright. Denies headache, vision changes. Stable glucose 11/23/24 -?-?-?-?-?-?-?-?-?-?-?-?- 33w 3d 223 lb 8 oz (+33 lb 8 oz) 134/86 Negative -?-?-?-?-?-?-?-?-?-?-?-?- Negative 130 -?-?-?-?-?-?-?-?-?-?-?-?- MH-NST only reac tive Home BP 117/74 11/26/24 -?-?-?-?-?-?-?-?-?-?-?-?- 33w 6d 224 lb 8 oz (+34 lb 8 oz) 135/87 Negative -?-?-?-?-?-?-?-?-?-?-?-?- Negative 135 34 -?-?-?-?-?-?-?-?-?-?-?-?- KW- NST reactive . no vb/lof/ctx. good fm. growth US scheduled. BS reviewed and controlled 11/30/24 -?-?-?-?-?-?-?-?-?-?-?-?- 34w 3d 228 lb (+38 lb) 138/93 127/86 Negative -?-?-?-?-?-?-?-?-?-?-?-?- Negative 125 -?-?-?-?-?-?-?-?-?-?-?-?- KW-no vb/lof/ctx . good fm doing well 12/03/24 -?-?-?-?-?-?-?-?-?-?-?-?- 34w 6d 227 lb (+37 lb) 132/86 -?-?-?-?-?-?-?-?-?-?-?-?- 120 -?-?-?-?-?-?-?-?-?-?-?-?- MH-NST only reac tive 12/07/24 -?-?-?-?-?-?-?-?-?-?-?-?- 35w 3d 228 lb (+38 lb) 143/82 143/82 Negative -?-?-?-?-?-?-?-?-?-?-?-?- Negative 120 -?-?-?-?-?-?-?-?-?-?-?-?- KW- no vb/lof/ct x. good fm KW- no vb/lof/ctx. good fm. Pre e labs today. no jaquez, dizziness, bv. discussed elevated fastings with JV. plan to start insulin-8 units of lantus at night-plan 37 week IOL. growth US on saturday12/10/24 -?-?-?-?-?-?-?-?-?-?-?-?- 35w 6d 231 lb 2 oz (+41 lb 2 oz) 136/90 Negative -?-?-?-?-?-?-?-?-?-?-?-?- Negative 120 -?-?-?-?-?-?-?-?-?-?-?-?- KW- NST only. no vb/lof/ctx. fasting numbers better and under 95 now that she started insulin. growth US on saturday. having decreased FM. to WP for BPP. 12/14/24 -?-?-?-?-?-?-?-?-?-?-?-?- 36w 3d 230 lb 4 oz (+40 lb 4 oz) 131/89 Negative -?-?-?-?-?-?-?-?-?-?-?-?- Negative 140 Cephalic 0.5 -?-?-?-?-?-?-?-?-?-?-?-?- JV- nst re active. patient requests to wait a couple of days after 37 weeks since is not pre-e. plan for saturday night induction if L&D is available. 12/17/24 -?-?-?-?-?-?-?-?-?-?-?-?- 36w 6d 232 lb 6 oz (+42 lb 6 oz) 132/84 Negative -?-?-?-?-?-?-?-?-?-?-?-?- Negative 120 Cephalic -?-?-?--?-?-?-?-?-?-?-?-?- JV_ nst reactive . IOL saturday. GBS neg NST FHR Rate Baby A Baseline: 110 Variability:: Moderate Accelerations:: 15 x 15 Decelerations:: None NST Reactive:: Yes FHR Category:: Category I Vital Signs Vital Signs Vital Signs: 12/20/24 19:59 12/20/24 19:59 12/20/24 20:04 Temperature Temperature Source Pulse Rate 108 H 119 H Respiratory Rate Blood Pressure BP Systolic BP Diastolic Pulse Ox 97 12/20/24 20:04 12/20/24 20:09 12/20/24 20:09 Temperature Temperature Source Pulse Rate 114 H Respiratory Rate Blood Pressure BP Systolic BP Diastolic Pulse Ox 99 97 12/20/24 20:26 12/20/24 20:26 12/20/24 20:31 Temperature Temperature Source Pulse Rate 104 H 101 H Respiratory Rate Blood Pressure BP Systolic BP Diastolic Pulse Ox 98 12/20/24 20:31 12/20/24 20:36 12/20/24 20:36 Temperature Temperature Source Pulse Rate 101 H Respiratory Rate Blood Pressure BP Systolic BP Diastolic Pulse Ox 100 98 12/20/24 20:39 12/20/24 20:39 12/20/24 20:39 Temperature 97.8 F Temperature Source Temporal Pulse Rate Respiratory Rate 16 Blood Pressure BP Systolic BP Diastolic Pulse Ox 12/20/24 20:41 12/20/24 20:41 12/20/24 20:46 Temperature Temperature Source Pulse Rate 96 95 Respiratory Rate Blood Pressure BP Systolic BP Diastolic Pulse Ox 98 12/20/24 20:46 12/20/24 20:51 12/20/24 20:51 Temperature Temperature Source Pulse Rate 95 Respiratory Rate Blood Pressure BP Systolic BP Diastolic Pulse Ox 99 99 12/20/24 20:56 12/20/24 20:56 12/20/24 21:01 Temperature Temperature Source Pulse Rate 94 95 Respiratory Rate Blood Pressure BP Systolic BP Diastolic Pulse Ox 98 12/20/24 21:01 12/20/24 21:06 12/20/24 21:06 Temperature Temperature Source Pulse Rate 93 Respiratory Rate Blood Pressure BP Systolic BP Diastolic Pulse Ox 98 99 12/20/24 21:07 12/20/24 21:07 12/20/24 21:11 Temperature Temperature Source Pulse Rate 90 98 Respiratory Rate Blood Pressure 129/72 H BP Systolic 129 BP Diastolic 72 Pulse Ox 12/20/24 21:11 Temperature Temperature Source Pulse Rate Respiratory Rate Blood Pressure BP Systolic BP Diastolic Pulse Ox 97 Weight Weight: 234 lb 6 oz Body Mass Index (BMI) 37.8 Physical Exam Const alert, oriented x3 and no apparent distress General Appearance: cooperative, comfortable and well kempt Orientation / Consciousness: awake and oriented to person Exam Limitations: no limitations HEENT normocephalic Neck full ROM Chest inspection of chest normal Resp normal respiratory effort, normal air movement and no retractions Effort and Inspection: able to speak in complete sentences and symmetric chest movement Cardio regular rate Peripheral Pulses: pulses 2+ throughout GI normal to inspection, nondistended, normoactive bowel sounds Inspection: gravid no CVA tenderness and appearance of the vagina normal External Female Exam: normal appearance of the urethra; Negative for external lesion OB / External & Speculum: external exam normal Manual OB Exam: estimated gestational size appropriate and presentation breech Uterus Palpation: Negative for uterus tender Extremity normal to inspection Skin no rashes or lesions noted Neuro deep tendon reflexes 2+ bilaterally and gait normal Motor Exam: strength 5/5 throughout and clonus absent Psych Activity / Motor Behavior: appropriate eye contact Speech: normal speech Labs Labs Labs: Blood Type A POSITIVE Antibody Screen NEGATIVE Hct 32.5 % (37-47) L Hgb 11.1 g/dL (12.0-15.0) L Pap Smear Negative Obstetrics Ultrasound Syphilis Total Ab Non-reactive Rubella IgG Antibody 38.1 IU/mL Hep Bs Antigen Non-Reactive (Nonreactive) Hepatitis C Antibody Non-Reactive (Nonreactive) HIV 1&2 Antibody Non-Reactive (Nonreactive) Glucose 1 Hr 50 gm 161 mg/dL (70-140) H Gest Glucose Tolerance MG/DL Miscellaneous Test Assessment & Plan (1) Gestational diabetes: QUALIFIERS: Gestational diabetes mellitus control: oral hypoglycemic-controlled Trimester: third trimester Qualified Code(s): O24.415 - Gestational diabetes mellitus in , controlled by oral hypoglycemic drugs COMMENT: on metformin and lantus-8 units twice weekly nsts at 32w and growth scan Q4 weeks, deliver 37 weeks (2) Breech presentation: COMMENT: version scheduled for 12/20/2024, plan for IOL after version if successful vs primary cs for breech (3) Elevated blood pressure affecting , antepartum: COMMENT: elevated BPs in the office. Pre e labs today. plan 37 week IOL (4) Supervision of high-risk : QUALIFIERS: Trimester: third trimester Qualified Code(s): O09.93 - Supervision of high risk , unspecified, third trimester COMMENT: PRR(outside records), JANNETH 01/08/25, PC Lucas, Burt (5) : QUALIFIERS: Weeks of gestation: 36 weeks Qualified Code(s): Z3A.36 - 36 weeks gestation of COMMENT: nl anatomy, had NIPT [id number] Core negative results PLAN: Plan -d/c home for
[2024-12-20 21:25] LABS: Syphilis Antibodies Non-reactive
--- NOTE | 2024-12-20 21:29 | OB.TRI.HP_ITS ---
HPI - General General Date of Admission: 12/20/24 HPI Narrative ABENA GREEN, is a 34 F who presents at 37.2 here for IOL for GDM and GHTN. notified by nursing for questionable presentation. active fetus, no lof/vb. Maternal Data Information JANNETH Calculator Estimated Delivery Date Method Current WG Current Estimate 01/08/25 LMP (Certain) 37w 2d PFSH PFS Medical History (Updated 12/20/24 @ 21:31 by ySlvia Sutton CNM) Depression Anxiety Gestational HTN Gestational diabetes Lumbar herniated disc MTHFR gene mutation FH: breast cancer in first degree relative Seasonal allergies Pain management SVT (supraventricular tachycardia) Lyme disease Depression Anxiety Hypertension (spontaneous vaginal delivery) 39 weeks gestation of Home Medications ?Medication ?Instructions ?Recorded ?Last Taken ?Type aspirin 81 mg chewable tablet 81 mg PO QHS 08/14/24 12/20/24 18:00 History multivitamin no.47-iron fum 27 1 cap PO DAILY 08/14/24 12/20/24 12:30 History mg-folate no.1 1 mg-dha 300 mg capsule (PNV-DHA) desvenlafaxine succinate 50 mg 50 mg PO QDAY depression #90 tabs 11/10/24 12/19/24 23:30 Rx tablet,extended release 24 hr (Pristiq) diphenhydramine HCl 25 mg capsule 12.5 mg PO QHS Insomnia 11/10/24 12/20/24 11:30 History metformin 500 mg tablet 1,000 mg (2 x 500 mg) PO QDAY GDM 11/20/24 12/20/24 17:30 Rx #60 tabs omeprazole 20 mg tablet,delayed 20 mg PO QDAY heartburn 11/30/24 12/20/24 08:00 History release insulin glargine 100 unit/mL (3 8 unit (0.08 mL) subcut QPM GDM 12/07/24 12/20/24 06:30 Rx mL) subcutaneous pen (Lantus #15 mL Solostar U-100 Insulin) lisdexamfetamine 70 mg capsule 70 mg PO DAILY Check with primary 12/14/24 12/20/24 04:00 Rx doctor 30 days #30 caps Allergy/AdvReac Type Severity Reaction Status Date / Time adhesive tape (adhesives - Allergy Mild Other Verified 12/20/24 19:50 tape) Family History Father Myocardial infarction 4-5 [place] CAD (coronary artery disease) Diabetes Hypertension Grandmother Diabetes Paternal Myocardial infarction, Onset Age: 30 Grandfather Cancer Paternal unsure what kind of cancer Mother Breast cancer, Onset Age: 38 x2 Anxiety Sister Anxiety Surgical History History of endometrial biopsy [place] teeth extracted Social History adopted: No household members: spouse and children number of children: 1 current occupational status: unemployed current occupation: [employer] current occupational exposures/hazards: No pets and animals: Yes (Avoid litter box) pets and animals: cat(s), dog(s) and other details: mini horses history of recent travel: No sexually active: Yes Smoking Status: Former smoker quit date: 11/25/19 Tobacco: How many years used: 10 how long ago did patient quit smokin alcohol intake: current alcohol intake frequency: holidays/special occasions only details: not while substance use type: does not use diet: low carbohydrate well-balanced diet: daily or most days caffeine: Yes (minimal amount) Type: coffee Number of servings: 1 eating out: rarely or never what type of physical activity do you participate in: none chirag/uatsdin: None seatbelt use: always do you feel safe at home: Yes additional social history: [employer] History 3 Elective abortions 1 Hx Para 1 Spontaneous abortions Hx # Term Pregnancies Ectopic pregnancies Hx # Pregnancies Multiple births # of living children 1 Past Pregnancies Del. Date Name GA/Weeks Outcome Route Bth Weight Gen Labor Lgth Anesthesia Del Locatn Provider FOB 03/06/12 6 elective 10/14/20 Zavala 39 live - full term 7#11oz Male none [facility] [place] [place] Delivery Date: 10/14/20 Last Updated by: Itzel Marti IOL, gestational HTN Visit Details Expected Delivery Route/Plan Labor Preferences- CB/BF classes: no labor support person: JAVIER labor intervention preferences: [] pain management options preferred: limited cut cord/dad catch: yes : yes PP control planned: discussed discussed possible routes of delivery and associated risks: [] special requests: [] Plans Covid status: [] Flu vaccine: declines Tdap vaccine: [] Rhogam: na LARC form signed: yes Problem list reviewed and updated with the most current plan of care details and appropriate orders placed. Relevant counseling for the gestational age provided. Continue routine care and follow up unless otherwise noted in visit notes/problem list details OB Flowsheet Initial Weight: 190 lb Date -?-?-?-?-?-?-?-?-?-?-?-?- EGA Weight BP Urine Prot -?-?-?-?-?-?-?-?-?-?-?-?- Glucose FHR FuHt Pres Dilation -?-?-?-?-?-?-?-?-?-?-?-?- Effaced St Visit Note 08/18/24 -?-?-?-?-?-?-?-?-?-?-?-?- 19w 4d 203 lb (+13 lb) 139/93 -?-?-?-?-?-?-?-?-?-?-?-?- 150 -?-?-?-?-?-?-?-?-?-?-?-?- Sm- ZACHARY from [facility] no vb cramping 09/15/24 -?-?-?-?-?-?-?-?-?-?-?-?- 23w 4d 208 lb (+18 lb) 137/94 124/86 Negative -?-?-?-?-?-?-?-?-?-?-?-?- Negative 135 -?-?-?-?-?-?-?-?-?-?-?-?- KW- no vb/lof/ct x. good fm. discussed 28 week labs 10/13/24 -?-?-?-?-?-?-?-?-?-?-?-?- 27w 4d 215 lb 2 oz (+25 lb 2 oz) 124/82 Negative -?-?-?-?-?-?-?-?-?-?-?-?- Negative 154 28 -?-?-?-?-?-?-?-?-?-?-?-?- MH-No VB, LOF. G ood FM. 28 wk labs pending. Erna. Declines tdap. 11/04/24 -?-?-?-?-?-?-?-?-?-?-?-?- 30w 5d 219 lb 8 oz (+29 lb 8 oz) 140/93 Trace -?-?-?-?-?-?-?-?-?-?-?-?- 100 g/dL 138 31 -?-?-?-?-?-?-?-?-?-?-?-?- JV- fasting gluc ose levels all elevated. bp high today but normal at home. Start metformin, twice weekly testing, and PIH labs today. 11/09/24 -?-?-?-?-?-?-?-?-?-?-?-?- 31w 3d 219 lb 6 oz (+29 lb 6 oz) 130/80 Negative -?-?-?-?-?-?-?-?-?-?-?-?- Negative 135 -?-?-?-?-?-?-?-?-?-?-?-?- KW-NST only. jesusita bartlettive. US ordered for 32 +36 weeks. started metformin and numbers starting to improve. will bring log to next NST to see if metformin needs increased. 11/12/24 -?-?-?-?-?-?-?-?-?-?-?-?- 31w 6d 221 lb (+31 lb) 136/89 Negative -?-?-?-?-?-?-?-?-?-?-?-?- Negative 160 -?-?-?-?-?-?-?-?-?-?-?-?- KW- no vb/lof/ct x. NST shows tachycardia with variables vs prolonged accelerations. to WP for BPP. fasting BS are 94-96 over the last week. Discussed with JV. agree to increase metformin to 1000 at HS 11/17/24 -?-?-?-?-?-?-?-?-?-?-?-?- 32w 4d 220 lb (+30 lb) 127/86 Negative -?-?-?-?-?-?-?-?-?-?-?-?- Negative 130 33 -?-?-?-?-?-?-?-?-?-?-?-?- SM- no vb lof go od fm n oregular ctx. BS reviewed. 11/20/24 -?-?-?-?-?-?-?-?-?-?-?-?- 33w 0d 223 lb (+33 lb) 140/90 Negative -?-?-?-?-?-?-?-?-?-?-?-?- Negative 130 -?-?-?-?-?-?-?-?-?-?-?-?- MH-No VB, LOF. R eactive NST. good fm. Pre E labs. Pt tachy with laying down 122. Resolved when upright. Denies headache, vision changes MH-No VB, LOF. Reactive NST. good fm. Pre E labs. Pt tachy with laying down 122. Resolved when upright. Denies headache, vision changes. Stable glucose 11/23/24 -?-?-?-?-?-?-?-?-?-?-?-?- 33w 3d 223 lb 8 oz (+33 lb 8 oz) 134/86 Negative -?-?-?-?-?-?-?-?-?-?-?-?- Negative 130 -?-?-?-?-?-?-?-?-?-?-?-?- MH-NST only reac tive Home BP 117/74 11/26/24 -?-?-?-?-?-?-?-?-?-?-?-?- 33w 6d 224 lb 8 oz (+34 lb 8 oz) 135/87 Negative -?-?-?-?-?-?-?-?-?-?--?-?- Negative 135 34 -?-?-?-?-?-?-?-?-?-?-?-?- KW- NST reactive . no vb/lof/ctx. good fm. growth US scheduled. BS reviewed and controlled 11/30/24 -?-?-?-?-?-?-?-?-?-?-?-?- 34w 3d 228 lb (+38 lb) 138/93 127/86 Negative -?-?-?-?-?-?-?-?-?-?-?-?- Negative 125 -?-?-?--?-?-?-?-?-?-?-?-?- KW-no vb/lof/ctx . good fm doing well 12/03/24 -?-?-?-?-?-?-?-?-?-?-?-?- 34w 6d 227 lb (+37 lb) 132/86 -?-?--?-?-?-?-?-?-?-?-?-?- 120 -?-?-?-?-?-?-?-?-?-?-?-?- MH-NST only reac tive 12/07/24 -?-?-?-?-?-?-?-?-?-?-?-?- 35w 3d 228 lb (+38 lb) 143/82 143/82 Negative -?-?-?-?-?-?-?-?-?-?-?-?- Negative 120 -?-?-?-?-?-?-?-?-?-?-?-?- KW- no vb/lof/ct x. good fm KW- no vb/lof/ctx. good fm. Pre e labs today. no jaquez, dizziness, bv. discussed elevated fastings with JV. plan to start insulin-8 units of lantus at night-plan 37 week IOL. growth US on saturday12/10/24 -?-?-?-?-?-?-?-?-?-?-?-?- 35w 6d 231 lb 2 oz (+41 lb 2 oz) 136/90 Negative -?-?-?-?-?-?-?-?-?-?-?-?- Negative 120 -?-?-?-?--?-?-?-?-?-?-?-?- KW- NST only. no vb/lof/ctx. fasting numbers better and under 95 now that she started insulin. growth US on saturday. having decreased FM. to WP for BPP. 12/14/24 -?-?-?-?-?-?-?-?-?-?-?-?- 36w 3d 230 lb 4 oz (+40 lb 4 oz) 131/89 Negative -?-?-?-?-?-?-?-?-?-?-?-?- Negative 140 Cephalic 0.5 -?-?-?-?-?-?-?-?-?-?-?-?- JV- nst re active. patient requests to wait a couple of days after 37 weeks since is not pre-e. plan for saturday night induction if L&D is available. 12/17/24 -?-?-?-?-?-?-?-?-?-?-?-?- 36w 6d 232 lb 6 oz (+42 lb 6 oz) 132/84 Negative -?-?-?-?-?-?-?-?-?-?-?-?- Negative 120 Cephalic -?-?-?-?-?-?-?-?-?-?-?-?- JV_ nst reactive . IOL saturday. GBS neg NST FHR Rate Baby A Baseline: 110 Variability:: Moderate Accelerations:: 15 x 15 Decelerations:: None NST Reactive:: Yes FHR Category:: Category I Uterine Activity:: none Assessment & Plan (1) Breech presentation: COMMENT: version scheduled for 12/22/2024, plan for IOL after version if successful vs primary cs for breech PLAN: CAMILLE 13 12/20 (2) Elevated blood pressure affecting , antepartum: COMMENT: elevated BPs in the office. Pre e labs today. plan 37 week IOL (3) Gestational diabetes: QUALIFIERS: Gestational diabetes mellitus control: oral hypoglycemic-controlled Trimester: third trimester Qualified Code(s): O24.415 - Gestational diabetes mellitus in , controlled by oral hypoglycemic drugs COMMENT: on metformin and lantus-8 units twice weekly nsts at 32w and growth scan Q4 weeks, deliver 37 weeks PLAN: will cut half dose of insulin tomorrow. consulted with VILLA (4) LUCY (advanced maternal age) multigravida 35+: QUALIFIERS: Trimester: third trimester Qualified Code(s): O09.523 - Supervision of elderly multigravida, third trimester COMMENT: plan delivery by 39, growth US at 36 weeks. (5) Supervision of high-risk : QUALIFIERS: Trimester: third trimester Qualified Code(s): O09.93 - Supervision of high risk , unspecified, third trimester COMMENT: PRR(outside records), JANNETH 01/08/25, PC Lucas, Burt (6) : QUALIFIERS: Weeks of gestation: 36 weeks Qualified Code(s): Z3A.36 - 36 weeks gestation of COMMENT: nl anatomy, had NIPT [id number] Core negative results PLAN: Plan Patient presents for triage evaluation secondary to breech presentation. consulted with VILLA for breech presentation and scheduling. FHT: Moderate variability reactive no decelerations category I tracing Encampment: no Contractions Assessment and plan: Reactive NST, reassuring maternal and status patient discharged to home to follow-up on saturday for version and either IOL vs c/s. See problem list details for additional plan information. Charges/Coding Multi Select Codes Visit Charges Office Visit/Consults: 95271 OV L3 Est 20min Urinary/Genital Urinary/Genital CPT Codes: 51750-31 non-stress test Interp
[2024-12-20 21:32] LABS: Bedside Glucose 87 mg/dL (74-106)
== END 2024-12-20 21:38 | disposition home or self-care (01) ==
PROVIDERS: Admitting Provider Obstetrics & Gynecology; PCP Internal Medicine; Referring Provider Obstetrics & Gynecology; Visit Provider Obstetrics & Gynecology
DX: O09.93 Supervision of high risk pregnancy, unspecified, third trimester (principal); O24.415 Gestational diabetes mellitus in pregnancy, controlled by oral hypoglycemic drugs; Z3A.37 37 weeks gestation of pregnancy; O13.3 Gestational [pregnancy-induced] hypertension without significant proteinuria, third trimester; O32.1XX0 Maternal care for breech presentation, not applicable or unspecified; O09.523 Supervision of elderly multigravida, third trimester
CPT/HCPCS: 82962; 85025; 86780; 86850; 86900; 86901; G0378 ×2; 99221

== ENCOUNTER 2024-12-22 05:20 | Inpatient (IN) | payer MEDICAID, SELFPAY ==
[2024-12-22] VITALS (19 sets, daily range): BP systolic 104–167; BP diastolic 75–97; PULSE 74–117; RESP 14–18; TEMP 36.1–36.9; O2SAT 97–100; BMI 36.5
[2024-12-22 06:32] LABS: Bedside Glucose 94 mg/dL (74-106)
[2024-12-22] MEDS: Lactated Ringers 1,000 ML 999 ML IV ×3 (06:45→22:22)
[2024-12-22 06:47] LABS: Absolute Neutrophil Count 6.9 X10^3/uL (2.0-7.7); Basophil# 0.04 X10^3/uL; Basophil% 0.4 % (0-1); Hematocrit 32.7 % (37-47); Hemoglobin 11.2 g/dL (12.0-15.0); Lymphocyte % 14.2 % (19-41); Mean Corp Hgb Conc 34.3 g/dL (32-36); Mean Corpuscular Hgb 31.5 pg (27.0-32.0); Mean Corpuscular Volume 91.9 fL (81-99); Mean Platelet Vol. 8.7 fl (6.2-12.0); Monocyte# 0.88 X10^3/uL; Monocyte% 9.6 % (0-10); NRBC Flagged by Analyzer 0 % (0-5); Neutrophil # 6.87 X10^3/uL (2.7-7.7); Neutrophil % 75.3 % (47-70); Platelet Count 222 K/mm3 (150-450); RBC Distribution Width CV 12.5 % (11.6-14.6); RBC Distribution Width SD 42.2 fl (35.1-43.9); Red Blood Count 3.56 M/mm3 (4.2-5.4); White Blood Count 9.1 K/mm3 (4.4-11.0)
[2024-12-22] MEDS: Sodium Citrate/Citric Acid 30 ML UDC PO (07:42)
[2024-12-22] MEDS: Acetaminophen 500 MG Tablet 1000 MG PO ×3 (07:43→20:42)
[2024-12-22] MEDS: Lactated Ringers 1,000 ML 150 ML IV (07:43)
[2024-12-22] MEDS: Cefazolin 2 GM in Syringe IV (08:02)
[2024-12-22 08:21] LABS: Syphilis Antibodies Non-reactive
[2024-12-22 08:33] LABS: AST(SGOT) 10 U/L (15-37); Alanine Aminotransfer ALT/SGPT 28 U/L (13-56); EST Glomerular Filtration Rate 121 mL/min (>60); Est Glom Filt Rate - Afr Amer 146 mL/min (>60); Estimated Creatinine Clearance 162.15 ml/min; Uric Acid 3.2 mg/dL (2.6-6.0)
[2024-12-22] MEDS: Oxytocin 15 Units/NS 250ml 15 UNITS/250 ML IV.SOLN 83 UNITS IV (09:15)
--- NOTE | 2024-12-22 09:27 | HP.PCM.OB_ITS ---
HPI - General General Date of Admission: 12/22/24 HPI Narrative ABENA GREEN, is a 34 F who presents Maternal Data Information JANNETH Calculator Estimated Delivery Date Method Current WG Current Estimate 01/08/25 LMP (Certain) 37w 4d PFSH PFS Medical History Infertility Autoimmune disease Depression Anxiety Gestational HTN Gestational diabetes Lumbar herniated disc MTHFR gene mutation FH: breast cancer in first degree relative Seasonal allergies Pain management SVT (supraventricular tachycardia) Lyme disease Depression Anxiety Hypertension (spontaneous vaginal delivery) 39 weeks gestation of Home Medications ?Medication ?Instructions ?Recorded ?Last Taken ?Type aspirin 81 mg chewable tablet 81 mg PO QHS 08/14/24 12/21/24 21:00 History multivitamin no.47-iron fum 27 1 cap PO DAILY 08/14/24 12/21/24 12:00 History mg-folate no.1 1 mg-dha 300 mg capsule (PNV-DHA) desvenlafaxine succinate 50 mg 50 mg PO QDAY depression #90 tabs 11/10/24 12/21/24 11:30 Rx tablet,extended release 24 hr (Pristiq) diphenhydramine HCl 25 mg capsule 12.5 mg PO QHS Insomnia 11/10/24 12/21/24 19:00 History metformin 500 mg tablet 1,000 mg (2 x 500 mg) PO QDAY GDM 11/20/24 12/21/24 17:30 Rx #60 tabs omeprazole 20 mg tablet,delayed 20 mg PO QDAY heartburn 11/30/24 12/21/24 19:00 History release lisdexamfetamine 70 mg capsule 70 mg PO DAILY Check with primary 12/14/24 12/22/24 03:15 Rx doctor 30 days #30 caps insulin glargine 100 unit/mL (3 5 unit subcut QPM GDM 12/22/24 12/21/24 18:00 History mL) subcutaneous pen (Lantus Solostar U-100 Insulin) Allergy/AdvReac Type Severity Reaction Status Date / Time adhesive tape (adhesives - Allergy Mild Other Verified 12/22/24 06:05 tape) Family History Father Myocardial infarction 4-5 [place] CAD (coronary artery disease) Diabetes Hypertension Grandmother Diabetes Paternal Myocardial infarction, Onset Age: 30 Grandfather Cancer Paternal unsure what kind of cancer Mother Breast cancer, Onset Age: 38 x2 Anxiety Sister Anxiety Surgical History History of endometrial biopsy [place] teeth extracted Social History adopted: No household members: spouse and children number of children: 1 current occupational status: unemployed current occupation: [employer] current occupational exposures/hazards: No pets and animals: Yes (Avoid litter box) pets and animals: cat(s), dog(s) and other details: mini horses history of recent travel: No sexually active: Yes Smoking Status: Former smoker quit date: 11/25/19 Tobacco: How many years used: 10 how long ago did patient quit smokin alcohol intake: current alcohol intake frequency: holidays/special occasions only details: not while substance use type: does not use diet: low carbohydrate well-balanced diet: daily or most days caffeine: Yes (minimal amount) Type: coffee Number of servings: 1 eating out: rarely or never what type of physical activity do you participate in: none chirag/spiritism: None seatbelt use: always do you feel safe at home: Yes additional social history: Jeison [employer] History 3 Elective abortions 1 Hx Para 1 Spontaneous abortions Hx # Term Pregnancies Ectopic pregnancies Hx # Pregnancies Multiple births # of living children 1 Past Pregnancies Del. Date Name GA/Weeks Outcome Route Bth Weight Gen Labor Lgth Anesthesia Del [facility] Provider FOB 03/06/12 6 elective 10/14/20 Zavala 39 live - full term 7#11oz Male none [facility] [place] Delivery Date: 10/14/20 Last Updated by: Itzel Marti IOL, gestational HTN Visit Details Expected Delivery Route/Plan Labor Preferences- CB/BF classes: no labor support person: JAVIER labor intervention preferences: [] pain management options preferred: limited cut cord/dad catch: yes : yes PP control planned: discussed discussed possible routes of delivery and associated risks: [] special requests: [] Plans Covid status: [] Flu vaccine: declines Tdap vaccine: [] Rhogam: na LARC form signed: yes Problem list reviewed and updated with the most current plan of care details and appropriate orders placed. Relevant counseling for the gestational age provided. Continue routine care and follow up unless otherwise noted in visit notes/problem list details OB Flowsheet Initial Weight: 190 lb Date -?-?--?-?-?-?-?-?-?-?-?-?- EGA Weight BP Urine Prot -?-?-?-?-?-?-?-?-?-?-?-?- Glucose FHR FuHt Pres Dilation -?-?-?-?-?-?-?-?-?-?-?-?- Effaced St Visit Note 08/18/24 -?-?-?-?-?-?-?-?-?-?-?-?- 19w 4d 203 lb (+13 lb) 139/93 -?-?-?-?-?-?-?-?-?-?-?-?- 150 -?-?-?-?-?-?-?-?-?-?-?-?- Sm- ZACHARY from [facility] specialist no vb cramping 09/15/24 -?-?-?-?-?-?-?-?-?-?-?-?- 23w 4d 208 lb (+18 lb) 137/94 124/86 Negative -?-?-?-?-?-?-?-?-?-?-?-?- Negative 135 -?-?-?-?-?-?-?-?-?-?-?-?- KW- no vb/lof/ct x. good fm. discussed 28 week labs 10/13/24 -?-?-?-?-?-?-?-?-?-?-?-?- 27w 4d 215 lb 2 oz (+25 lb 2 oz) 124/82 Negative -?-?-?-?-?-?--?-?-?-?-?-?- Negative 154 28 -?-?-?-?-?-?-?-?-?-?-?-?- MH-No VB, LOF. G ood FM. 28 wk labs pending. Larc. Declines tdap. 12/11/24 -?-?-?-?-?-?-?-?--?-?-?-?- 30w 5d 219 lb 8 oz (+29 lb 8 oz) 140/93 Trace -?-?-?-?-?-?-?-?-?-?-?-?- 100 g/dL 138 31 -?-?-?-?-?-?-?-?-?-?-?-?- JV- fasting gluc ose levels all elevated. bp high today but normal at home. Start metformin, twice weekly testing, and PIH labs today. 11/09/24 -?-?-?-?-?-?-?-?-?-?-?-?- 31w 3d 219 lb 6 oz (+29 lb 6 oz) 130/80 Negative -?-?-?-?-?-?-?-?-?-?-?-?- Negative 135 -?-?-?-?-?-?-?-?-?-?-?-?- KW-NST only. jesusita ctive. US ordered for 32 +36 weeks. started metformin and numbers starting to improve. will bring log to next NST to see if metformin needs increased. 11/12/24 -?-?-?-?-?-?-?--?-?-?-?-?- 31w 6d 221 lb (+31 lb) 136/89 Negative -?-?-?-?-?-?-?-?-?-?-?-?- Negative 160 -?-?-?-?-?-?-?-?-?-?-?-?- KW- no vb/lof/ct x. NST shows tachycardia with variables vs prolonged accelerations. to WP for BPP. fasting BS are 94-96 over the last week. Discussed with JV. agree to increase metformin to 1000 at HS 11/17/24 -?-?-?-?-?-?-?-?-?-?-?-?- 32w 4d 220 lb (+30 lb) 127/86 Negative -?-?-?-?-?-?-?-?-?-?-?-?- Negative 130 33 -?-?-?-?-?-?-?-?-?-?-?-?- SM- no vb lof go od fm n oregular ctx. BS reviewed. 11/20/24 -?-?-?-?-?-?-?-?-?-?-?-?- 33w 0d 223 lb (+33 lb) 140/90 Negative -?-?-?-?-?-?-?-?-?-?-?-?- Negative 130 -?-?-?-?-?-?-?-?-?-?-?-?- MH-No VB, LOF. R eactive NST. good fm. Pre E labs. Pt tachy with laying down 122. Resolved when upright. Denies headache, vision changes MH-No VB, LOF. Reactive NST. good fm. Pre E labs. Pt tachy with laying down 122. Resolved when upright. Denies headache, vision changes. Stable glucose 11/23/24 -?-?-?-?-?-?-?-?-?-?-?-?- 33w 3d 223 lb 8 oz (+33 lb 8 oz) 134/86 Negative -?-?-?-?-?-?-?-?-?--?-?-?- Negative 130 -?-?-?-?-?-?-?-?-?-?-?-?- MH-NST only reac tive Home BP 117/74 11/26/24 -?-?-?-?-?-?-?-?-?-?-?-?- 33w 6d 224 lb 8 oz (+34 lb 8 oz) 135/87 Negative -?-?-?-?-?-?-?-?-?-?-?-?- Negative 135 34 -?-?-?-?-?-?-?-?-?-?-?-?- KW- NST reactive . no vb/lof/ctx. good fm. growth US scheduled. BS reviewed and controlled 11/30/24 -?-?-?-?-?-?-?-?-?-?-?-?- 34w 3d 228 lb (+38 lb) 138/93 127/86 Negative -?-?-?-?-?-?-?-?-?-?-?-?- Negative 125 -?-?-?-?-?-?-?-?-?-?-?-?- KW-no vb/lof/ctx . good fm doing well 12/03/24 -?-?-?-?-?-?-?-?-?-?-?-?- 34w 6d 227 lb (+37 lb) 132/86 -?-?-?-?-?-?-?-?-?-?-?-?- 120 -?-?-?-?-?-?-?-?-?-?-?-?- MH-NST only reac tive 12/07/24 -?-?-?-?-?-?-?-?-?-?-?-?- 35w 3d 228 lb (+38 lb) 143/82 143/82 Negative -?-?-?-?-?-?-?-?-?-?-?-?- Negative 120 -?-?-?-?-?-?-?-?-?-?-?-?- KW- no vb/lof/ct x. good fm KW- no vb/lof/ctx. good fm. Pre e labs today. no jaquez, dizziness, bv. discussed elevated fastings with JV. plan to start insulin-8 units of lantus at night-plan 37 week IOL. growth US on saturday12/10/24 -?-?-?-?-?-?-?-?-?-?-?-?- 35w 6d 231 lb 2 oz (+41 lb 2 oz) 136/90 Negative -?-?-?-?-?-?-?-?-?-?-?-?- Negative 120 -?-?-?-?-?-?-?-?-?-?-?-?- KW- NST only. no vb/lof/ctx. fasting numbers better and under 95 now that she started insulin. growth US on saturday. having decreased FM. to WP for BPP. 12/14/24 -?-?-?-?-?-?-?-?-?-?-?-?- 36w 3d 230 lb 4 oz (+40 lb 4 oz) 131/89 Negative -?-?-?-?-?-?-?-?-?-?-?-?- Negative 140 Cephalic 0.5 -?-?-?-?-?-?-?-?-?-?-?-?- 20 -3 JV- nst re active. patient requests to wait a couple of days after 37 weeks since is not pre-e. plan for saturday night induction if L&D is available. 12/17/24 -?-?-?-?-?-?-?-?-?-?-?-?- 36w 6d 232 lb 6 oz (+42 lb 6 oz) 132/84 Negative -?-?-?-?-?-?-?-?-?-?-?-?- Negative 120 Cephalic -?-?-?-?-?-?-?-?-?-?-?-?- JV_ nst reactive . IOL saturday. GBS neg Vital Signs Vital Signs Vital Signs: 12/22/24 05:56 12/22/24 05:56 12/22/24 05:57 Temperature Temperature Source Temporal Pulse Rate 117 H Respiratory Rate Respiratory Pattern Blood Pressure Blood Pressure Mean BP Systolic BP Diastolic Blood Pressure Source Blood Pressure Position Blood Pressure Location Baseline BP Pulse Ox 98 Oxygen Delivery Method 12/22/24 05:57 12/22/24 05:57 12/22/24 05:58 Temperature 97.6 F L Temperature Source Pulse Rate Respiratory Rate 18 Respiratory Pattern Blood Pressure 167/94 H Blood Pressure Mean BP Systolic 167 BP Diastolic 94 Blood Pressure Source Blood Pressure Position Blood Pressure Location Baseline BP Pulse Ox Oxygen Delivery Method 12/22/24 05:58 12/22/24 05:59 12/22/24 05:59 Temperature Temperature Source Pulse Rate 114 H 113 H Respiratory Rate Respiratory Pattern Blood Pressure 147/87 H Blood Pressure Mean BP Systolic 147 BP Diastolic 87 Blood Pressure Source Blood Pressure Position Blood Pressure Location Baseline BP Pulse Ox Oxygen Delivery Method 12/22/24 09:15 12/22/24 09:15 Temperature 97.0 F L Temperature Source Temporal Temporal Pulse Rate 87 Respiratory Rate 16 Respiratory Pattern Normal Blood Pressure 116/80 Blood Pressure Mean 92 BP Systolic BP Diastolic Blood Pressure Source Monitor Blood Pressure Position Semi-Fowlers Blood Pressure Location Right Arm Baseline BP 147/87 Pulse Ox 99 Oxygen Delivery Method Room Air Weight Weight: 233 lb 0.458 oz Body Mass Index (BMI) 36.5 Labs Labs Labs: Blood Type A POSITIVE Antibody Screen NEGATIVE Hct 32.7 % (37-47) L Hgb 11.2 g/dL (12.0-15.0) L Pap Smear Negative Obstetrics Ultrasound Syphilis Total Ab Non-reactive Rubella IgG Antibody 38.1 IU/mL Hep Bs Antigen Non-Reactive (Nonreactive) Hepatitis C Antibody Non-Reactive (Nonreactive) HIV 1&2 Antibody Non-Reactive (Nonreactive) Glucose 1 Hr 50 gm 161 mg/dL (70-140) H Gest Glucose Tolerance MG/DL Miscellaneous Test
--- NOTE | 2024-12-22 09:27 | PCM.HP.OB ---
HPI - General General Date of Admission: 12/22/24 HPI Narrative ABENA GREEN, is a 34 F who presents breech presentation ghtn gdm Maternal Data Information JANNETH Calculator Estimated Delivery Date Method Current WG Current Estimate 01/08/25 LMP (Certain) 37w 4d PFSH PFSH Medical History (Updated 12/22/24 @ 21:[address] Zora Nevarez MD) Infertility Autoimmune disease Depression Anxiety Gestational HTN Gestational diabetes Lumbar herniated disc MTHFR gene mutation FH: breast cancer in first degree relative Seasonal allergies Pain management SVT (supraventricular tachycardia) Lyme disease Depression Anxiety Hypertension (spontaneous vaginal delivery) 39 weeks gestation of Home Medications ?Medication ?Instructions ?Recorded ?Last Taken ?Type aspirin 81 mg chewable tablet 81 mg PO QHS 08/14/24 12/21/24 21:00 History multivitamin no.47-iron fum 27 1 cap PO DAILY 08/14/24 12/21/24 12:00 History mg-folate no.1 1 mg-dha 300 mg capsule (PNV-DHA) desvenlafaxine succinate 50 mg 50 mg PO QDAY depression #90 tabs 11/10/24 12/21/24 11:30 Rx tablet,extended release 24 hr (Pristiq) diphenhydramine HCl 25 mg capsule 12.5 mg PO QHS Insomnia 11/10/24 12/21/24 19:00 History metformin 500 mg tablet 1,000 mg (2 x 500 mg) PO QDAY GDM 11/20/24 12/21/24 17:30 Rx #60 tabs omeprazole 20 mg tablet,delayed 20 mg PO QDAY heartburn 11/30/24 12/21/24 19:00 History release lisdexamfetamine 70 mg capsule 70 mg PO DAILY Check with primary 12/14/24 12/22/24 03:15 Rx doctor 30 days #30 caps insulin glargine 100 unit/mL (3 5 unit subcut QPM GDM 12/22/24 12/21/24 18:00 History mL) subcutaneous pen (Lantus Solostar U-100 Insulin) Allergy/AdvReac Type Severity Reaction Status Date / Time adhesive tape (adhesives - Allergy Mild Other Verified 12/22/24 06:05 tape) Family History Father Myocardial infarction 4-5 [place] CAD (coronary artery disease) Diabetes Hypertension Grandmother Diabetes Paternal Myocardial infarction, Onset Age: 30 Grandfather Cancer Paternal unsure what kind of cancer Mother Breast cancer, Onset Age: 38 x2 Anxiety Sister Anxiety Surgical History History of endometrial biopsy [place] teeth extracted Social History adopted: No household members: spouse and children number of children: 1 current occupational status: unemployed current occupation: [employer] current occupational exposures/hazards: No pets and animals: Yes (Avoid litter box) pets and animals: cat(s), dog(s) and other details: mini horses history of recent travel: No sexually active: Yes Smoking Status: Former smoker quit date: 11/25/19 Tobacco: How many years used: 10 how long ago did patient quit smokin alcohol intake: current alcohol intake frequency: holidays/special occasions only details: not while substance use type: does not use diet: low carbohydrate well-balanced diet: daily or most days caffeine: Yes (minimal amount) Type: coffee Number of servings: 1 eating out: rarely or never what type of physical activity do you participate in: none chirag/faith: None seatbelt use: always do you feel safe at home: Yes additional social history: Jeison Sarsys[employer] History 3 Elective abortions 1 Hx Para 1 Spontaneous abortions Hx # Term Pregnancies Ectopic pregnancies Hx # Pregnancies Multiple births # of living children 1 Past Pregnancies Del. Date Name GA/Weeks Outcome Route Bth Weight Gen Labor Lgth Anesthesia Del Locatn Provider FOB 03/06/12 6 elective 10/14/20 Zavala 39 live - full term 7#11oz [facility] [place] [facility] Date: 10/14/20 Last Updated by: Itzel Marti IOL, gestational HTN Visit Details Expected Delivery Route/Plan Labor Preferences- CB/BF classes: no labor support person: JAVIER labor intervention preferences: [] pain management options preferred: limited cut cord/dad catch: yes : yes PP control planned: discussed discussed possible routes of delivery and associated risks: [] special requests: [] Plans Covid status: [] Flu vaccine: declines Tdap vaccine: [] Rhogam: na LARC form signed: yes Problem list reviewed and updated with the most current plan of care details and appropriate orders placed. Relevant counseling for the gestational age provided. Continue routine care and follow up unless otherwise noted in visit notes/problem list details OB Flowsheet Initial Weight: 190 lb Date <del>?</del> EGA Weight BP Urine Prot <del>?</del> Glucose FHR FuHt Pres Dilation <del>?</del> Effaced St Visit Note 08/18/24 <del>?</del> 19w 4d 203 lb (+13 lb) 139/93 <del>?</del> 150 <del>?</del> Sm- ZACHARY from [facility] specialist no vb cramping 09/15/24 <del>?</del> 23w 4d 208 lb (+18 lb) 137/94 124/86 Negative <del>?</del> Negative 135 <del>?</del> KW- no vb/lof/ctx. good fm. discussed 28 week labs 10/13/24 <del>?</del> 27w 4d 215 lb 2 oz (+25 lb 2 oz) 124/82 Negative <del>?</del> Negative 154 28 <del>?</del> MH-No VB, LOF. Good FM. 28 wk labs pending. Larc. Declines tdap. 11/04/24 <del>?</del> 30w 5d 219 lb 8 oz (+29 lb 8 oz) 140/93 Trace <del>?</del> 100 g/dL 138 31 <del>?</del> JV- fasting glucose levels all elevated. bp high today but normal at home. Start metformin, twice weekly testing, and PIH labs today. 11/09/24 <del>?</del> 31w 3d 219 lb 6 oz (+29 lb 6 oz) 130/80 Negative <del>?</del> Negative 135 <del>?</del> KW-NST only. reactive. US ordered for 32 +36 weeks. started metformin and numbers starting to improve. will bring log to next NST to see if metformin needs increased. 11/12/24 <del>?</del> 31w 6d 221 lb (+31 lb) 136/89 Negative <del>?</del> Negative 160 <del>?</del> KW- no vb/lof/ctx. NST shows tachycardia with variables vs prolonged accelerations. to WP for BPP. fasting BS are 94-96 over the last week. Discussed with JV. agree to increase metformin to 1000 at HS 11/17/24 <del>?</del> 32w 4d 220 lb (+30 lb) 127/86 Negative <del>?</del> Negative 130 33 <del>?</del> SM- no vb lof good fm n oregular ctx. BS reviewed. 11/20/24 <del>?</del> 33w 0d 223 lb (+33 lb) 140/90 Negative <del>?</del> Negative 130 <del>?</del> MH-No VB, LOF. Reactive NST. good fm. Pre E labs. Pt tachy with laying down 122. Resolved when upright. Denies headache, vision changes MH-No VB, LOF. Reactive NST. good fm. Pre E labs. Pt tachy with laying down 122. Resolved when upright. Denies headache, vision changes. Stable glucose 11/23/24 <del>?</del> 33w 3d 223 lb 8 oz (+33 lb 8 oz) 134/86 Negative <del>?</del> Negative 130 <del>?</del> MH-NST only reactive Home BP 117/74 11/26/24 <del>?</del> 33w 6d 224 lb 8 oz (+34 lb 8 oz) 135/87 Negative <del>?</del> Negative 135 34 <del>?</del> KW- NST reactive. no vb/lof/ctx. good fm. growth US scheduled. BS reviewed and controlled 11/30/24 <del>?</del> 34w 3d 228 lb (+38 lb) 138/93 127/86 Negative <del>?</del> Negative 125 <del>?</del> KW-no vb/lof/ctx. good fm doing well 12/03/24 <del>?</del> 34w 6d 227 lb (+37 lb) 132/86 <del>?</del> 120 <del>?</del> MH-NST only reactive 12/07/24 <del>?</del> 35w 3d 228 lb (+38 lb) 143/82 143/82 Negative <del>?</del> Negative 120 <del>?</del> KW- no vb/lof/ctx. good fm KW- no vb/lof/ctx. good fm. Pre e labs today. no jaquez, dizziness, bv. discussed elevated fastings with JV. plan to start insulin-8 units of lantus at night-plan 37 week IOL. growth US on saturday12/10/24 <del>?</del> 35w 6d 231 lb 2 oz (+41 lb 2 oz) 136/90 Negative <del>?</del> Negative 120 <del>?</del> KW- NST only. no vb/lof/ctx. fasting numbers better and under 95 now that she started insulin. growth US on saturday. having decreased FM. to WP for BPP. 12/14/24 <del>?</del> 36w 3d 230 lb 4 oz (+40 lb 4 oz) 131/89 Negative <del>?</del> Negative 140 Cephalic 0.5 <del>?</del> 20 -3 JV- nst reactive. patient requests to wait a couple of days after 37 weeks since is not pre-e. plan for saturday night induction if L&D is available. 12/17/24 <del>?</del> 36w 6d 232 lb 6 oz (+42 lb 6 oz) 132/84 Negative <del>?</del> Negative 120 Cephalic <del>?</del> JV_ nst reactive. IOL saturday. GBS neg NST FHR Rate Baby A Baseline: 130 Variability:: Moderate Accelerations:: 15 x 15 Decelerations:: None NST Reactive:: Yes FHR Category:: Category I Uterine Activity:: irregular ROS Constitutional Constitutional: Reports systems reviewed and no addt'l complaints, except as documented Eyes Eyes: Denies change in vision ENT HEENT: Reports systems reviewed and no addt'l complaints, except as documented; Denies headache(s) Cardiovascular Cardiovascular: Reports systems reviewed and no addt'l complaints, except as documented; Denies chest pain or dyspnea Respiratory/Chest Respiratory/Chest: Reports systems reviewed and no addt'l complaints, except as documented Gastrointestinal Gastrointestinal: Reports systems reviewed and no addt'l complaints, except as documented; Denies abdominal pain Genitourinary Genitourinary: Reports systems reviewed and no addt'l complaints, except as documented, contractions Details: present (irregular) and movement Details: present; Denies dysuria or genital lesions Musculoskeletal Musculoskeletal: Reports systems reviewed and no addt'l complaints, except as documented Neurologic Neurologic: Reports systems reviewed and no addt'l complaints, except as documented Endocrine Endocrinology: Reports systems reviewed and no addt'l complaints, except as documented Vital Signs Vital Signs Vital Signs: 12/22/24 05:56 12/22/24 05:56 12/22/24 05:57 Temperature Temperature Source Temporal Pulse Rate 117 H Respiratory Rate Respiratory Pattern Blood Pressure Blood Pressure Mean BP Systolic BP Diastolic Blood Pressure Source Blood Pressure Position Blood Pressure Location Baseline BP Pulse Ox 98 Oxygen Delivery Method 12/22/24 05:57 12/22/24 05:57 12/22/24 05:58 Temperature 97.6 F L Temperature Source Pulse Rate Respiratory Rate 18 Respiratory Pattern Blood Pressure 167/94 H Blood Pressure Mean BP Systolic 167 BP Diastolic 94 Blood Pressure Source Blood Pressure Position Blood Pressure Location Baseline BP Pulse Ox Oxygen Delivery Method 12/22/24 05:58 12/22/24 05:59 12/22/24 05:59 Temperature Temperature Source Pulse Rate 114 H 113 H Respiratory Rate Respiratory Pattern Blood Pressure 147/87 H Blood Pressure Mean BP Systolic 147 BP Diastolic 87 Blood Pressure Source Blood Pressure Position Blood Pressure Location Baseline BP Pulse Ox Oxygen Delivery Method 12/22/24 09:15 12/22/24 09:15 Temperature 97.0 F L Temperature Source Temporal Temporal Pulse Rate 87 Respiratory Rate 16 Respiratory Pattern Normal Blood Pressure 116/80 Blood Pressure Mean 92 BP Systolic BP Diastolic Blood Pressure Source Monitor Blood Pressure Position Semi-Fowlers Blood Pressure Location Right Arm Baseline BP 147/87 Pulse Ox 99 Oxygen Delivery Method Room Air Weight Weight: 233 lb 0.458 oz Body Mass Index (BMI) 36.5 Physical Exam Const alert, oriented x3, no apparent distress and healthy appearing HEENT normocephalic and moist oral mucous membranes Head and Scalp: atraumatic Neck full ROM, no lymphadenopathy, supple and thyroid normal General: trachea midline Lymph Lymphatic: no lymphadenopathy noted Chest inspection of chest normal Resp normal respiratory effort Cardio regular rate GI soft to palpation and non-tender GI Narrative: gravid Inspection: gravid external exam normal Manual OB Exam: estimated gestational size appropriate, presentation cephalic, dilated, effaced and station Extremity normal to inspection General Extremity: Negative for edema Skin no rashes or lesions noted Neuro no focal motor deficits and deep tendon reflexes 2+ bilaterally Motor Exam: strength 5/5 throughout and clonus absent Psych mental status grossly normal Labs Labs Labs: Blood Type A POSITIVE Antibody Screen NEGATIVE Hct 29.9 % (37-47) L Hgb 10.4 g/dL (12.0-15.0) L Pap Smear Negative Obstetrics Ultrasound Syphilis Total Ab Non-reactive Rubella IgG Antibody 38.1 IU/mL Hep Bs Antigen Non-Reactive (Nonreactive) Hepatitis C Antibody Non-Reactive (Nonreactive) HIV 1&2 Antibody Non-Reactive (Nonreactive) Glucose 1 Hr 50 gm 161 mg/dL (70-140) H Gest Glucose Tolerance MG/DL Miscellaneous Test Assessment & Plan (1) Breech presentation: COMMENT: version scheduled for 12/22/2024, plan for IOL after version if successful vs primary cs for breech (2) Elevated blood pressure affecting , antepartum: COMMENT: elevated BPs in the office. Pre e labs today. plan 37 week IOL (3) Gestational diabetes: QUALIFIERS: Gestational diabetes mellitus control: oral hypoglycemic-controlled Trimester: third trimester Qualified Code(s): O24.415 - Gestational diabetes mellitus in , controlled by oral hypoglycemic drugs COMMENT: on metformin and lantus-8 units twice weekly nsts at 32w and growth scan Q4 weeks, deliver 37 weeks (4) Vaginal bleeding during : COMMENT: cervical polyp. no cervical dilation. pelvic rest recommended until bleeding ceases. None since 10/11. (5) AMA (advanced maternal age) multigravida 35+: QUALIFIERS: Trimester: third trimester Qualified Code(s): O09.523 - Supervision of elderly multigravida, third trimester COMMENT: plan delivery by 39, growth US at 36 weeks. (6) History of gestational hypertension: COMMENT: IOL previous , baby asa. (7) Supervision of high-risk : QUALIFIERS: Trimester: third trimester Qualified Code(s): O09.93 - Supervision of high risk , unspecified, third trimester COMMENT: PRR(outside records), JANNETH 01/08/25, PC Zavala, Burt (8) : QUALIFIERS: Weeks of gestation: 36 weeks Qualified Code(s): Z3A.36 - 36 weeks gestation of COMMENT: nl anatomy, had NIPT [id number] Core negative results (9) delivery delivered: COMMENT: LTCS 37 GHTN GDM girl Lemon PLAN: Plan admit for LTCS failed version
--- NOTE | 2024-12-22 09:28 | DCINST_ITS ---
Discharge Instructions DC O2, CPAP, BIPAP needs Home O2 Discharge instructions: No Follow Up Care Test Results: Test results from this visit will be discussed in further detail at your follow- up appointment, if applicable. Discharge Plan Admission Admit Date/Time: 12/22/24 05:20 Attending Provider: Zora Nevarez Primary Care Provider: Guerda Valadez Consulting Providers: Hunter Gross Instructions Patient Instructions: After a Discharge Orders/Prescriptions Prescriptions: New nifedipine [Procardia XL] 30 mg tablet extended release 24hr 30 mg PO DAILY Qty: 30 2RF oxycodone-acetaminophen [Percocet] 5-325 mg tablet 1 tab PO Q4H PRN (Reason: pain) 7 Days Qty: 20 0RF naproxen 500 mg tablet 500 mg PO BID PRN PRN (Reason: Pain) Qty: 30 1RF No Action desvenlafaxine succinate [Pristiq] 50 mg tablet extended release 24 hr 50 mg PO QDAY Qty: 90 0RF PNV-DHA 27 mg iron-1 mg -300 mg capsule 1 cap PO DAILY aspirin 81 mg tablet,chewable 81 mg PO QHS omeprazole 20 mg tablet,delayed release (DR/EC) 20 mg PO QDAY diphenhydramine HCl 25 mg capsule 12.5 mg PO QHS insulin glargine [Lantus Solostar U-100 Insulin] 100 unit/mL (3 mL) insulin pen 5 unit subcut QPM metformin 500 mg tablet 1,000 mg PO QDAY Qty: 60 4RF lisdexamfetamine 70 mg capsule 70 mg PO DAILY 30 Days Qty: 30 0RF Referrals / Follow Up: Guerda Valadez MD [Primary Care Provider] - Disposition Disposition (needs filled in before D/C Order can be placed): Home, Self Care
--- NOTE | 2024-12-22 09:28 | OP.PCM_ITS ---
Assessment & Plan (1) Breech presentation: COMMENT: version scheduled for 12/22/2024, plan for IOL after version if successful vs primary cs for breech (2) Decreased movements in third trimester: (3) Elevated blood pressure affecting , antepartum: COMMENT: elevated BPs in the office. Pre e labs today. plan 37 week IOL (4) Gestational diabetes: QUALIFIERS: Gestational diabetes mellitus control: oral hypoglycemic-controlled Trimester: third trimester Qualified Code(s): O24.415 - Gestational diabetes mellitus in , controlled by oral hypoglycemic drugs COMMENT: on metformin and lantus-8 units twice weekly nsts at 32w and growth scan Q4 weeks, deliver 37 weeks (5) Vaginal bleeding during : COMMENT: cervical polyp. no cervical dilation. pelvic rest recommended until bleeding ceases. None since 10/11. (6) AMA (advanced maternal age) multigravida 35+: QUALIFIERS: Trimester: third trimester Qualified Code(s): O09.523 - Supervision of elderly multigravida, third trimester COMMENT: plan delivery by 39, growth US at 36 weeks. 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 (8) History of gestational hypertension: COMMENT: IOL previous , baby asa. (9) Supervision of high-risk : QUALIFIERS: Trimester: third trimester Qualified Code(s): O09.93 - Supervision of high risk , unspecified, third trimester COMMENT: PRR(outside records), JANNETH 01/08/25, PC Lucas, Burt (10) : QUALIFIERS: Weeks of gestation: 36 weeks Qualified Code(s): Z3A.36 - 36 weeks gestation of COMMENT: nl anatomy, had NIPT [id number] Core negative results (11) SVT (supraventricular tachycardia): COMMENT: occurs when laying flat and resolves immediately Maternal Data Information JANNETH Calculator 2 Estimated Delivery Date Method Current WG Current Estimate 01/08/25 LMP (Certain) 37w 4d Operative Report (OB) Cecarean Details Procedure Type: low transverse Date of Procedure: 12/22/24 Procedure Start Time: 08:12 Procedure Stop Time: 09:00 Pre-Operative Diagnosis: Other Other Pre-Operative diagnosis: see a/p comments Post-Operative Diagnosis: Same as Pre-operative diagnosis Classification: Scheduled Type of Anesthesia: Spinal Special Medications: none Antibiotic Given: Ancef 2 grams IV x1 Drain: Rodriguez to straight drain Estimated Blood Loss: 2000 Fluids Replaced: crystalloid Findings Description of surgery: external cephalic version was attempted by both JV and SM, both forward and backward roll and was unsuccessful, so decision was made to proceed with primary LTCS. Spinal anesthesia was placed without difficulty. Rodriguez catheter was placed. The patient was placed in the dorsal supine position with leftward tilt. Patient was prepped and draped in the normal sterile fashion. Pfannenstiel skin incision was made with the scalpel and carried through to the underlying layer of fascia with the scalpel. Fascia was nicked in the midline and the incision extended laterally. The rectus bellies were dissected off superiorly and inferiorly with out complication both sharply and bluntly. The peritoneum was entered digitally. The incision was stretched and uterus evaluated, large uterine sinuses and veins noted prior to incision, a low transverse uterine incision was made trying to avoid these with the scalpel ho wever they were still encountered and a large amount of bleeding was encountered while delivering the inant. The buttox was delivered atraumatically and the right and left legs were swept anteriorly and delivered, followed by the body and the arms which were swept anteriorly and delivered. Gentle traction was placed on the mentum to flex the head which was delivered without complication. The cord was clamped and cut and the infant was handed off to awaiting nurse. The placenta was delivered spontaneously immediately following and was noted to be intact and have a three-vessel cord. bleeding was noted to have decreased significantly after delivery of the . The uterus was exteriorized cleared of all clots and debris, and the incision was closed in a single layer closure using #1 Monocryl. The ovaries and fallopian tubes were noted to be within normal limits. The uterus was returned to the maternal abdomen and gutters were cleared of all clots and debris. The peritoneum was closed with 3-0 Monocryl in a running fashion. Gloves were changed prior to fascial closure. Fascia was closed with 0 PDS in a running fashion. Subcutaneous tissue was copiously irrigated and the skin was closed with 3-0 Monocryl in a subcuticular fashion. Mepilex dressing was applied without complication. Patient was taken to recovery in stable condition. It was discussed with the patient that based on the clinical information obtained during this encounter, combined with her history, at this time I would recommend vaginal or c sections for future deliveries if further pregnancies are desired. Surgical findings: venous congestion and large uterine sinuses. Amniotic Membrane Rupture Type: Artificial Amniotic Fluid Description: Clear Specimen collected: Yes Description of specimen(s) removed: Placenta Cord Vessel Description: 3 Vessels Delayed Cord Clamping: Yes Mortgage Specialist sports team marketing intern: Yes Master [place]: Dino Silvestre Tasks completed by nurse practitioner physician assistant: Opening & closing, Retracting and Other (Assisting with delivery of the infant) Additional video production assistant?: No Complications Complications: No Admit VTE Documentation VTE Present on Admission: No VTE Mechan Device Prophylaxis: SCD's Procedures Urinary/Genital [id number]: [id number] delivery+PP Care([facility])
[2024-12-22] MEDS: Ketorolac 30 MG/ML Syringe IV ×3 (10:32→22:08)
[2024-12-22 11:34] LABS: Bedside Glucose 87 mg/dL (74-106)
[2024-12-22 12:04] LABS: Protein, Urine (Random) 95.1 mg/dL (<11.9); Protein:Creat Ratio 651 mg/g CRE (0-200)
[2024-12-22] MEDS: DESVENLAFAXINE SUCCINATE 50 MG PO (12:51)
[2024-12-22] MEDS: Senna/Docusate Sodium 1 Tablet PO (12:51)
[2024-12-22 13:36] LABS: Hematocrit 29.5 % (37-47); Hemoglobin 10.1 g/dL (12.0-15.0); Mean Corp Hgb Conc 34.2 g/dL (32-36); Mean Corpuscular Hgb 31.3 pg (27.0-32.0); Mean Corpuscular Volume 91.3 fL (81-99); Mean Platelet Vol. 8.8 fl (6.2-12.0); Platelet Count 208 K/mm3 (150-450); RBC Distribution Width CV 12.4 % (11.6-14.6); RBC Distribution Width SD 41.6 fl (35.1-43.9); Red Blood Count 3.23 M/mm3 (4.2-5.4); White Blood Count 16.7 K/mm3 (4.4-11.0)
[2024-12-22] MEDS: 0.9% Saline Lock 10 ML Syringe IV ×2 (16:04→22:08)
[2024-12-22 21:46] LABS: Absolute Lymphocyte Count 1.45 X10^3/uL (0.83-4.51); Absolute Neutrophil Count 11.6 X10^3/uL (2.0-7.7); Basophil# 0.06 X10^3/uL; Basophil% 0.4 % (0-1); Eosinophil# 0.03 X10^3/uL; Eosinophils% 0.2 % (0-5); Hematocrit 29.9 % (37-47); Hemoglobin 10.4 g/dL (12.0-15.0); Lymphocyte # 1.45 X10^3/ul (0.83-4.51); Mean Corp Hgb Conc 34.8 g/dL (32-36); Mean Corpuscular Hgb 31.2 pg (27.0-32.0); Mean Corpuscular Volume 89.8 fL (81-99); Mean Platelet Vol. 8.7 fl (6.2-12.0); Monocyte# 1.25 X10^3/uL; Monocyte% 8.6 % (0-10); NRBC Flagged by Analyzer 0 % (0-5); Neutrophil # 11.57 X10^3/uL (2.7-7.7); Neutrophil % 80.1 % (47-70); Platelet Count 209 K/mm3 (150-450); RBC Distribution Width CV 12.5 % (11.6-14.6); RBC Distribution Width SD 40.8 fl (35.1-43.9); Red Blood Count 3.33 M/mm3 (4.2-5.4); White Blood Count 14.5 K/mm3 (4.4-11.0)
[2024-12-22] MEDS: Enoxaparin 40 MG/0.4 ML Syringe SC (22:09)
[2024-12-23] VITALS (16 sets, daily range): BP systolic 129–168; BP diastolic 72–95; PULSE 81–108; RESP 16; TEMP 36.4–37; O2SAT 95–100
[2024-12-23] MEDS: Acetaminophen 500 MG Tablet 1000 MG PO ×4 (03:04→22:19)
[2024-12-23] MEDS: 0.9% Saline Lock 10 ML Syringe IV (04:19)
[2024-12-23] MEDS: Ketorolac 30 MG/ML Syringe IV (04:19)
[2024-12-23] MEDS: LISDEXAMFETAMINE DIMESYLATE 70 MG CAPSULE PO (06:21)
[2024-12-23 06:52] LABS: Hematocrit 29.8 % (37-47); Hemoglobin 9.9 g/dL (12.0-15.0); Mean Corp Hgb Conc 33.2 g/dL (32-36); Mean Corpuscular Hgb 30.8 pg (27.0-32.0); Mean Corpuscular Volume 92.8 fL (81-99); Mean Platelet Vol. 8.8 fl (6.2-12.0); Platelet Count 207 K/mm3 (150-450); RBC Distribution Width CV 12.5 % (11.6-14.6); RBC Distribution Width SD 42.8 fl (35.1-43.9); Red Blood Count 3.21 M/mm3 (4.2-5.4); White Blood Count 11.4 K/mm3 (4.4-11.0)
--- NOTE | 2024-12-23 08:13 | PCM.PN.OB ---
Subjective Subjective Patient doing well without complaints. Tolerating PO. Ambulating and voiding without difficulty. Feeding well. Denies chest pain, shortness of breath, calf pain/swelling, fevers, chills, lightheadedness. Denies headache, vision changes Objective Data Objective Data Vital Signs: Vital Signs Temp Pulse Resp BP Pulse Ox O2 Del Method 97.5 F L 88 16 143/87 H 96 Room Air 12/23/24 03:12 12/23/24 07:50 12/23/24 03:12 12/23/24 07:50 12/23/24 03:12 12/23/24 03:12 Oxygen Delivery Method Room Air Weight: 233 lb 0.458 oz Body Mass Index (BMI) 36.5 Intake & Output: Intake and Output for Last 24 Hours 12/21/24 12/22/24 12/23/24 23:59 23:59 23:59 Intake Total 4270.0 / 4270.0 Output Total 3350 / 3350 900 / 900 Balance 920.0 / 920 -900 / -900 Lab / Micro Data 12/23/24 06:30 12/22/24 06:25 Labs: Laboratory Results - last 24 hr 12/22/24 06:25: Creatinine 0.60, Estim Creat Clear Calc 162.15, Est GFR (MDRD) Af Amer 146, Est GFR (MDRD) Non-Af 121, Uric Acid 3.2, AST 10 L, ALT 28, Syphilis Total Ab Non-reactive 12/22/24 10:40: U Random Total Protein 95.1 H, Urine Creatinine 146.00, Protein/Creatinin Ratio 651 H 12/22/24 11:02: POC Glucose 87 12/22/24 12:55: WBC 16.7 H, RBC 3.23 L, Hgb 10.1 L, Hct 29.5 L, MCV 91.3, MCH 31.3, MCHC 34.2, RDW Std Deviation 41.6, RDW Coeff of Ralf 12.4, Plt Count 208, MPV 8.8 12/22/24 21:15: WBC 14.5 H, RBC 3.33 L, Hgb 10.4 L, Hct 29.9 L, MCV 89.8, MCH 31.2, MCHC 34.8, RDW Std Deviation 40.8, RDW Coeff of Ralf 12.5, Plt Count 209, MPV 8.7, Immature Gran % (Auto) 0.700, Neut % (Auto) 80.1 H, Lymph % (Auto) 10.0 L, [place] % (Auto) 8.6, Eos % (Auto) 0.2, Baso % (Auto) 0.4, Absolute Neuts (auto) 11.6 H, Absolute Lymphs (auto) 1.45, Nucleated RBC % 0 12/23/24 06:30: WBC 11.4 H, RBC 3.21 L, Hgb 9.9 L, Hct 29.8 L, MCV 92.8, MCH 30.8, MCHC 33.2, RDW Std Deviation 42.8, RDW Coeff of Ralf 12.5, Plt Count 207, MPV 8.8 Physical Exam Const alert and oriented x3 HEENT normocephalic Eyes PERRL Neck full ROM Resp normal respiratory effort GI soft to palpation GI Narrative: FF below U. Dressing dry and intact Palpation: tender other (appropriately) Assessment & Plan (1) delivery delivered: COMMENT: LTCS 37 GHTN GDM girl Lemon (2) Gestational diabetes: QUALIFIERS: Gestational diabetes mellitus control: oral hypoglycemic-controlled Trimester: third trimester Qualified Code(s): O24.415 - Gestational diabetes mellitus in , controlled by oral hypoglycemic drugs (3) Elevated blood pressure affecting , antepartum: PLAN: Plan s/p LTCS PPD # 1 1. routine post care 2. bottle feeding- support given 3. rh positive 4. rubella immune 5. glucose stable-no meds 6. continue to monitor BP
[2024-12-23] MEDS: Senna/Docusate Sodium 1 Tablet PO (10:35)
[2024-12-23] MEDS: Naproxen 500 MG Tablet PO ×2 (12:55→20:20)
[2024-12-23] MEDS: DESVENLAFAXINE SUCCINATE 50 MG PO (13:07)
[2024-12-23] MEDS: Enoxaparin 40 MG/0.4 ML Syringe SC (20:20)
[2024-12-23] MEDS: NIFEdipine 30 MG Tablet PO (22:19)
--- NOTE | 2024-12-23 22:40 | NURSING ---
Provider on unit an notified provider Vahe at 2026 of blood pressure of 167/95 taken at 2015. Informed provider that patient was actively upset and crying during blood pressure being taken. Provider states to call with backup blood pressure. Called provider at 2123 to inform of backup blood pressure of 154/86, looking back at previous vitals the patient has a baseline of 140's to 150's for blood pressure systolic and one blood pressure of 168/91 at 1624. Vahe states to begin 30mg procardia XL immediately and then continue daily starting 24 hours after first dose is given.
[2024-12-24] VITALS (10 sets, daily range): BP systolic 129–156; BP diastolic 76–94; PULSE 90–118; RESP 16; TEMP 36.6; O2SAT 98–99
[2024-12-24 00:17] LABS: Bedside Glucose 96 mg/dL (74-106)
[2024-12-24] MEDS: Naproxen 500 MG Tablet PO ×2 (04:20→13:12)
[2024-12-24] MEDS: Acetaminophen 500 MG Tablet 1000 MG PO ×2 (04:20→10:09)
[2024-12-24] MEDS: LISDEXAMFETAMINE DIMESYLATE 70 MG CAPSULE PO (05:58)
--- NOTE | 2024-12-24 07:21 | PCM.PN.OB ---
Subjective Subjective Patient doing well without complaints. Tolerating PO. Ambulating and voiding without difficulty. feeding well. Denies chest pain, shortness of breath, calf pain/swelling, fevers, chills, lightheadedness. Objective Data Objective Data Vital Signs: Vital Signs Temp Pulse Resp BP Pulse Ox O2 Del Method 98.6 F 97 16 136/87 H 99 Room Air 12/23/24 16:30 12/24/24 04:21 12/23/24 20:16 12/24/24 04:21 12/23/24 20:16 12/23/24 20:16 Oxygen Delivery Method Room Air Weight: 233 lb 0.458 oz Body Mass Index (BMI) 36.5 Intake & Output: Intake and Output for Last 24 Hours 12/22/24 12/23/24 12/24/24 23:59 23:59 23:59 Intake Total 4270.0 / 4270.0 Output Total 3350 / 3350 900 / 900 Balance 920.0 / 920 -900 / -900 Lab / Micro Data 12/23/24 06:30 12/22/24 06:25 Labs: Laboratory Results - last 24 hr 12/23/24 06:24: POC Glucose 96 ROS Constitutional Constitutional: Reports systems reviewed and no addt'l complaints, except as documented Cardiovascular Cardiovascular: Reports systems reviewed and no addt'l complaints, except as documented Respiratory/Chest Respiratory/Chest: Reports systems reviewed and no addt'l complaints, except as documented Gastrointestinal Gastrointestinal: Reports systems reviewed and no addt'l complaints, except as documented Physical Exam Const alert, oriented x3 and no apparent distress HEENT Head and Scalp: atraumatic Resp normal respiratory effort GI soft to palpation and non-tender Inspection: incision intact, healing well and drainage (none) Bimanual Exam - Vag & Uterus: uterus non-tender Uterus Palpation: uterus fundus firm (below Umbilicus) Assessment & Plan (1) delivery delivered: COMMENT: LTCS 37 GHTN GDM girl Lemon PLAN: Plan s/p LTCS PPD # 2 1. routine post care 2. breast feeding- support given 3. rh positive 4. rubella immune started on procardia for bps
[2024-12-24] MEDS: Senna/Docusate Sodium 1 Tablet PO (10:09)
[2024-12-24] MEDS: DESVENLAFAXINE SUCCINATE 50 MG PO (12:17)
--- NOTE | 2024-12-25 14:18 | CASEMGMT ---
Social Work Assessment Labor and Delivery Unit Patient Address: [facility] [place] [address] Phone number: [phone] Date of Referral: 12/22/24 Time of Referral:? 1012 Referred By: Dr. Nevarez Date of Intervention: ?12/23/24? Time of Intervention:?1220 Reason for Referral:? anxiety and depression, extensive family history with autism of son and surgery Sw completed chart review and acknowledges social work consult due to maternal mental health and other family stressors. Sw presented to bedside and introduced self to mother of baby (MOB- Mariam) and father of baby (FOB- Burt). Sw explained reason for sw involvement and completed psychosocial assessment. Also present was parents 4 year old son, Lucas. History obtained from: medical records, MOB and FOB. Household composition: Currently residing in the family home is CHARLEY DEL CID, their four year old son and baby when ready for discharge. Parents deny housing concerns, stating their home is safe and secure. Patient's parent/guardian status:? NEHEMIAS states that she and CHARLEY have been together since 2012 after meeting each other through mutual friends. NO concerns reported of domestic violence or intimate partner violence. ? Medical History: ?NEHEMIAS is 34 year old female who is 3, para 1- now 2 following labor and delivery of . NEHEMIAS received routine care during with [facility]. NEHEMIAS presented to hospital and delivered baby on 12/22/24 at 37 weeks gestation. Baby girl, Mukul Montez, was born weighing 6lb 9oz with apgars of 8 and 9 at one and five minutes of life, respectfully. NEHEMIAS reports that she is bottle feeding and baby will be followed by Dr. Parada. Educational Status:? Borth parents graduated from high school and obtained their Bachelor's degrees. No problems with reading, learning or comprehension. 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 Infant Supplies: All necessary baby supplies obtained, including: car seat, safe sleep space, clothes, diapers and wipes. Childcare/Caregiver(s):? MOB will be the primary caregiver to baby along with FOB. Transportation:?? Both parents have their drivers license and reliable means of transportation. No barriers Programs/Agencies Involved: ??NEHEMIAS is connected to insurance through [employer]. Sw discussed other resources that NEHEMIAS could utilize to help her son: [facility], [facility], [employer] , Etc, ? Children Services/Legal Issues:???No history of children services, no problems or concerns warranting referral to be made at this time. Behavioral Health Issues: ??Mental Health History:??FOJosé states that he has anxiety, but does not struggle with it, stating that he is prescribed something to help him sleep. NEHEMIAS reports that she has been diagnosed with anxiety and depression, she is currently prescribed pristique by Dr. Shah. NEHEMIAS states that she does not believe that she struggled with symptoms, but did start to have anxiety and depression after her son was born and they started to notice a lot of the delays and cognitive issues, and so NEHEMIAS got started on medication to help manage her symptoms. ? Substance Use History:?Parents deny substance use prior to and during . ? Family History:??Parents deny family history of substance use or significant mental health diagnoses. ??? Drug Screens: No drug screens observed in chart review. Family/Social Stressors:? MOB and FOB both report that it is overwhelming to have a son who is developmentally challenged, without having specific diagnoses yet. Parents were observed to have a lot of patience with their son who was also in room during assessment. FOB had to provide the majority of his attention to their son while sw worked on completing assessment with MOB. FOB would also participate and contribute all while navigating their son's needs. Parents state that they have a plan so that one of them will be up with the baby during the night. Ultimately they are taking shifts so that someone is always awake at their house with a . Paretns state that they functioned like this when they had their son and this schedule worked for them and their family. Support Systems: MOB states that she and FOB are each others biggest supports. MOB states that they have some family members, but they do not always understand their son's problems. Depression/Shaken Baby/Safe Sleeping: Sw educated parents on signs and symptoms of baby blues and depression and anxiety. Parents state that they are familiar with the terms and what it were to look like if MOB were to struggle. MOB states that she feels comfortable having difficult conversations with FOB if her mental health were to be impacted. MOB agrees to continue her medication and to talk to her doctor if there are any red flags during this period. Donna educated parents on shaken baby prevention and ABCs of safe sleep, parents express understanding. ASSESSMENT:? MOB and baby admitted following labor and delivery of . MOB stating that she has everything that she needs for baby, and has FOB as her biggest support person. While talking with donna parents were also watching their son who was very energetic and running around the room and jumping on furniture. 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 parents state that even though it looks challenging from the outside this is their life and they have done things that work best for them and for their son. MOB and FOB both interactive in completion of assessment. Both parents talkative and open regarding things that they have worked through since getting , which also included a brain surgery of FOB's after their son was born. Parents exude a lot of strength and resilience as a couple. PLAN:?? No other services requested or indicated. MOB and baby to be discharged when medically ready. Parents were provided literature regarding: signs and symptoms of baby blues and mood and anxiety disorders, Help Me Grow, shaken baby prevention, ABCs of safe sleep and a list of county resources that are available for them should any needs present themselves. Dalton Soria, TAX INTERN, TRACTOR TRAILER OPERATOR
== END 2024-12-24 14:00 | disposition home or self-care (01) | DRG 540 ==
PROVIDERS: Anesthesiology; Admitting Provider Obstetrics & Gynecology; PCP Internal Medicine; Referring Provider Obstetrics & Gynecology; Visit Provider Obstetrics & Gynecology
DX: O32.1XX0 Maternal care for breech presentation, not applicable or unspecified (principal); I47.10 Supraventricular tachycardia, unspecified; O24.425 Gestational diabetes mellitus in childbirth, controlled by oral hypoglycemic drugs; Z37.0 Single live birth; Z3A.36 36 weeks gestation of pregnancy; O99.892 Other specified diseases and conditions complicating childbirth; Z87.891 Personal history of nicotine dependence; O99.42 Diseases of the circulatory system complicating childbirth; Z79.82 Long term (current) use of aspirin; O36.8130 Decreased fetal movements, third trimester, not applicable or unspecified; Z87.59 Personal history of other complications of pregnancy, childbirth and the puerperium
CPT/HCPCS: 59025; 82565; 82570; 82962; 84156; 84450; 84460; 84550; 85025; 85027; 86780; 86850; 86900; 86901; 99221; A4216; G0378; J2405

== ENCOUNTER → 2025-01-01 | Outpatient (CLI) | payer MEDICAID, SELFPAY ==
[2025-01-01 16:40] LABS: Absolute Lymphocyte Count 1.75 X10^3/uL (0.83-4.51); Absolute Neutrophil Count 5.2 X10^3/uL (2.0-7.7); Basophil# 0.05 X10^3/uL; Basophil% 0.6 % (0-1); Eosinophil# 0.05 X10^3/uL; Eosinophils% 0.6 % (0-5); Hematocrit 38.3 % (37-47); Hemoglobin 12.3 g/dL (12.0-15.0); Lymphocyte # 1.75 X10^3/ul (0.83-4.51); Lymphocyte % 22.1 % (19-41); Mean Corp Hgb Conc 32.1 g/dL (32-36); Mean Corpuscular Hgb 29.8 pg (27.0-32.0); Mean Corpuscular Volume 92.7 fL (81-99); Mean Platelet Vol. 8.5 fl (6.2-12.0); Monocyte% 10.1 % (0-10); NRBC Flagged by Analyzer 0 % (0-5); Neutrophil # 5.21 X10^3/uL (2.7-7.7); Neutrophil % 65.8 % (47-70); Platelet Count 305 K/mm3 (150-450); RBC Distribution Width CV 12.5 % (11.6-14.6); RBC Distribution Width SD 42.7 fl (35.1-43.9); Red Blood Count 4.13 M/mm3 (4.2-5.4); White Blood Count 7.9 K/mm3 (4.4-11.0)
[2025-01-01 16:47] LABS: ALB/GLOB Ratio 0.9 RATIO (0.9-2.4); AST(SGOT) 25 U/L (15-37); Alanine Aminotransfer ALT/SGPT 86 U/L (13-56); Albumin, Serum 3.1 g/dL (3.2-5.0); Alkaline Phosphatase 79 U/L (45-117); Anion Gap 6 (5-15); BUN 17 mg/dL (7-18); BUN/Creat Ratio 24.8 RATIO (10-20); Chloride 108 mmol/L (98-107); Creatinine, Serum 0.68 mg/dL (0.55-1.02); EST Glomerular Filtration Rate 103 mL/min (>60); Est Glom Filt Rate - Afr Amer 124 mL/min (>60); Globulin 3.6 g/dL (2.2-4.2); Glucose 81 mg/dL (74-106); Potassium 4.3 mmol/L (3.5-5.1); Protein, Total 6.7 g/dL (6.4-8.2); Sodium Level 140 mmol/L (136-145)
== END | disposition home or self-care (01) ==
LOC: BWCLAB 15:25
PROVIDERS: PCP Internal Medicine; Referring Provider Advanced Practice Midwife; Visit Provider Advanced Practice Midwife
DX: O16.9 Unspecified maternal hypertension, unspecified trimester (principal); Z3A.00 Weeks of gestation of pregnancy not specified
CPT/HCPCS: 36415; 80053; 85025

== ENCOUNTER → 2025-02-02 | Outpatient (CLI) | payer MEDICAID, SELFPAY ==
[2025-02-02 17:05] LABS: Absolute Lymphocyte Count 1.77 X10^3/uL (0.83-4.51); Absolute Neutrophil Count 4.3 X10^3/uL (2.0-7.7); Basophil# 0.05 X10^3/uL; Basophil% 0.7 % (0-1); Eosinophil# 0.16 X10^3/uL; Eosinophils% 2.3 % (0-5); Hematocrit 40.8 % (37-47); Hemoglobin 13.5 g/dL (12.0-15.0); Lymphocyte # 1.77 X10^3/ul (0.83-4.51); Mean Corp Hgb Conc 33.1 g/dL (32-36); Mean Corpuscular Hgb 29.9 pg (27.0-32.0); Mean Corpuscular Volume 90.3 fL (81-99); Mean Platelet Vol. 9.1 fl (6.2-12.0); Monocyte# 0.52 X10^3/uL; Monocyte% 7.6 % (0-10); NRBC Flagged by Analyzer 0 % (0-5); Neutrophil % 63.1 % (47-70); Platelet Count 291 K/mm3 (150-450); RBC Distribution Width CV 12.3 % (11.6-14.6); RBC Distribution Width SD 40.6 fl (35.1-43.9); Red Blood Count 4.52 M/mm3 (4.2-5.4); White Blood Count 6.8 K/mm3 (4.4-11.0)
[2025-02-02 17:58] LABS: ALB/GLOB Ratio 1.7 RATIO (0.9-2.4); AST(SGOT) 22 U/L (<=31); Alanine Aminotransfer ALT/SGPT 31 U/L (<=34); Albumin, Serum 4.2 g/dL (3.5-5.0); Alkaline Phosphatase 70 U/L (35-104); Anion Gap 11 (5-15); BUN 11 mg/dL (4-19); BUN/Creat Ratio 13.4 RATIO (10-20); Calcium,Total 9.1 mg/dL (7.6-11.0); Carbon Dioxide 23.6 mmol/L (21.0-32.0); Chloride 105 mmol/L (98-108); Creatinine, Serum 0.85 mg/dL (0.70-1.20); EST Glomerular Filtration Rate 91 (>60); Globulin 2.5 g/dL (2.2-4.2); Glucose 74 mg/dL (70-99); Potassium 3.8 mmol/L (3.3-5.1); Protein, Total 6.7 g/dL (5.9-8.4); Sodium Level 139 mmol/L (133-145); Total Bilirubin 0.21 mg/dL (0.00-1.30)
== END | disposition home or self-care (01) ==
LOC: BWCLAB 15:15
PROVIDERS: PCP Internal Medicine; Referring Provider Nurse Practitioner Women's Health; Visit Provider Nurse Practitioner Women's Health
DX: O13.9 Gestational [pregnancy-induced] hypertension without significant proteinuria, unspecified trimester (principal); Z3A.00 Weeks of gestation of pregnancy not specified
CPT/HCPCS: 36415; 80053; 85025

== ENCOUNTER → 2025-02-11 | Outpatient (CLI) | payer MEDICAID, SELFPAY ==
--- NOTE | 2025-02-11 14:23 | RAD_ITS ---
EXAM: XR Left Knee Complete, 4 or More Views CLINICAL INDICATION: KNEE PAIN/POPPING TECHNIQUE: Four or more views of the left knee. COMPARISON: No relevant prior studies available. FINDINGS: BONES/JOINTS: Unremarkable. No acute fracture. No dislocation. SOFT TISSUES: Unremarkable. RAD/Knee 4 or More Views IMPRESSION: No acute fracture. Reading Location[facility]
== END | disposition home or self-care (01) ==
PROVIDERS: PCP Internal Medicine; Referring Provider Internal Medicine; Visit Provider Internal Medicine
DX: M25.562 Pain in left knee (principal)
CPT/HCPCS: 73564

== ENCOUNTER → 2025-03-03 | Outpatient (CLI) | payer MEDICAID, SELFPAY ==
--- NOTE | 2025-03-03 06:52 | EKG12_ITS ---
Test Reason : TACHYCARDIA Blood Pressure : */* mmHG Vent. Rate : 107 BPM Atrial Rate : 107 BPM P-R Int : 116 ms QRS Dur : 88 ms QT Int : 336 ms P-R-T Axes : 36 63 31 degrees QTcB Int : 448 ms Sinus tachycardia Nonspecific T wave abnormality Abnormal ECG Confirmed by ARY DANGELO, RENAE ([id number]), website/blog editor PARTHA DOWNS ([id number]) on 03/03/2025 1:44:48 PM Referred By: Zora Nevarez Confirmed By: RENAE MCALLISTER MD
[2025-03-03 08:24] LABS: Cholesterol 197 mg/dL (<=200); High Density Lipoprotein 67 mg/dL; Low Density Lipoprotein Calc. 121 mg/dL; Triglycerides 47 mg/dL; Very Low Density Lipoprotein 9 mg/dL (5-40); cholesterol:hdl ratio screen 2.95
[2025-03-03 08:29] LABS: Vitamin D,25 Hydroxy 33.7 ng/mL (30-100)
== END | disposition home or self-care (01) ==
LOC: PSN 06:52
PROVIDERS: Nurse Practitioner Family; PCP Internal Medicine; Referring Provider Obstetrics & Gynecology; Visit Provider Obstetrics & Gynecology
DX: I47.10 Supraventricular tachycardia, unspecified (principal); I10 Essential (primary) hypertension; E66.09 Other obesity due to excess calories
CPT/HCPCS: 36415; 80061; 82306; 83036; 84439; 84443; 93005

== ENCOUNTER 2025-03-15 13:56 | Outpatient (RCR) | payer MEDICAID, SELFPAY | END 2025-03-24 23:59 | LOC: NS 13:56 | PROVIDERS: PCP Internal Medicine; Referring Provider Nurse Practitioner Family; Visit Provider Nurse Practitioner Family | DX: Z71.3 Dietary counseling and surveillance (principal); E66.9 Obesity, unspecified; Z68.31 Body mass index [BMI] 31.0-31.9, adult | CPT/HCPCS: 97802 ==

== ENCOUNTER → 2025-03-22 | Outpatient (CLI) | payer MEDICAID, SELFPAY ==
--- NOTE | 2025-03-22 12:00 | BI_ITS ---
EXAM: SCRN MAMM (CAD)W/KAY BILAT DATE: 03/22/2025 CLINICAL HISTORY: F, Age 35 y/o , SCREENING FOR BREAST CANCER BREAST CANCER RISK ASSESSMENT: Has not been calculated. TECHNIQUE: Bilateral screening digital breast tomosynthesis with 2D and 3D images. Computer aided detection. COMPARISON: Prior exam(s) dated 03/05/2024 and 03/18/2023. FINDINGS: TISSUE DENSITY: The breast tissue is heterogenously dense, which may obscure small masses. Bilateral Breast Mammographic Findings: No significant masses, calcifications or other abnormalities are identified. Benign round microcalcifications are seen in both breasts. BI/SCRN MAMM (CAD)W/KAY BILAT IMPRESSION: OVERALL FINAL ASSESSMENT: BIRADS 2 BENIGN FINDING RECOMMENDATION: Routine annual follow-up in 1 Year A letter with findings and recommendations will be mailed to the patient. Reading Location: [id number]
== END | disposition home or self-care (01) ==
PROVIDERS: PCP Internal Medicine; Referring Provider Nurse Practitioner Women's Health; Visit Provider Nurse Practitioner Women's Health
DX: Z12.31 Encounter for screening mammogram for malignant neoplasm of breast (principal)
CPT/HCPCS: 77063; 77067

== ENCOUNTER 2025-05-05 11:57 | Outpatient (RCR) | payer MEDICAID, SELFPAY | END 2025-05-24 23:59 | LOC: NS 11:57 | PROVIDERS: PCP Internal Medicine; Referring Provider Nurse Practitioner Family; Visit Provider Nurse Practitioner Family | DX: Z71.3 Dietary counseling and surveillance (principal); E66.09 Other obesity due to excess calories; Z68.31 Body mass index [BMI] 31.0-31.9, adult | CPT/HCPCS: 97803 ==

== ENCOUNTER → 2025-05-05 | Outpatient (CLI) | payer MEDICAID, SELFPAY ==
[2025-05-05 13:42] LABS: ALB/GLOB Ratio 1.7 RATIO (0.9-2.4); AST(SGOT) 18 U/L (<=31); Alanine Aminotransfer ALT/SGPT 19 U/L (<=34); Albumin, Serum 4.1 g/dL (3.5-5.0); Alkaline Phosphatase 64 U/L (35-104); Anion Gap 9 (5-15); BUN 18 mg/dL (4-19); BUN/Creat Ratio 21.9 RATIO (10-20); Calcium,Total 9.1 mg/dL (7.6-11.0); Carbon Dioxide 24.6 mmol/L (21.0-32.0); Chloride 106 mmol/L (98-108); Creatinine, Serum 0.82 mg/dL (0.70-1.20); EST Glomerular Filtration Rate 94 (>60); Globulin 2.5 g/dL (2.2-4.2); Glucose 80 mg/dL (70-99); Potassium 4.5 mmol/L (3.3-5.1); Protein, Total 6.6 g/dL (5.9-8.4); Sodium Level 139 mmol/L (133-145); Total Bilirubin 0.34 mg/dL (0.00-1.30); Vitamin B12 499 pg/mL (180-914)
== END | disposition home or self-care (01) ==
PROVIDERS: PCP Internal Medicine; Referring Provider Nurse Practitioner Family; Visit Provider Nurse Practitioner Family
DX: R53.83 Other fatigue (principal)
CPT/HCPCS: 36415; 80053; 82607; 97803